=== PATIENT | female | born 1950 | race Caucasian/White ===

== ENCOUNTER → 2018-12-27 17:11 | Outpatient (CLI) | payer MEDICARE, OTHER, SELFPAY ==
[2017-01-16 11:50] VITALS: BMI 32.2
--- NOTE | 2018-12-27 | IMM_PTH ---
PATIENT: HILARY RIVAS LOC: [facility] U#:[id number] AGE/SX: 75/F ROOM: RE12/27/[address]: Dr. Masha Kearns MD : 1950 BED: DIS: SPEC #: [id number] RECD: 12/31/18 11:47 STATUS: ERLIN REQ #: [id number] UMU: 12/27/18 00:[address]: Masha Kearns DEPT: IMMUNOHISTOCHEMISTRY RECD BY: Brittany Valenzuela ENTERED: 12/31/18 11:56 SP TYPE: IMMUNO OTHR DR: Dr. Anna Davies MD Tissues: A - Thyroid gland, NOS Procedures: HBME (initial) CD56 (add) CK19 (add) GAL-3 (add) PHYSICIAN & INSTITUTION [place] [address] SPECIMEN INFORMATION: Tissue Source: A - Left thyroid nodule Clinical Info: Thyroid nodules Specimen Number: [id number] CPT code: 21823, 46466 x3 METHODOLOGY: Deparaffinized sections of prefer/formalin-fixed tissue or PAP/DQ stained slides are incubated with monoclonal/polyclonal antibodies/oligonucleotide probes. Localization is made via biotin free immunoperoxidase method. Appropriate controls are performed and reacted as expected. Results on target cell population are indicated in the following table: RESULTS: ANTIBODY / CLONE RESULT Block A HBME1 (HBME-1) negative CK19 (A53-B/A2.26) positive, focal GAL3 (9C4) negative CD56 (123C3.D5) positive These tests were developed and their performance characteristics determined by [facility]. They may not have been cleared or approved by the U.S. Food and Drug Administration. The FDA has determined that such clearance or approval is not necessary. INTERPRETATION: A. Left thyroid nodule fluid for cytology, ultrasound-guided FNA: Consistent with benign follicular nodule with focal cystic changes.. NICOLLE:sayra 12/31/18 Case has been reviewed in consultation with Dr. Gan who concurs with the above diagnosis. IDC:AM
--- NOTE | 2018-12-27 13:00 | ASPSI_PTH ---
PATIENT: HILARY RIVAS LOC: [facility] U#:[id number] AGE/SX: 75/F ROOM: RE12/27/[address]: Dr. Masha Kearns MD : 1950 BED: DIS: SPEC #: [id number] RECD: 12/27/18 16:45 STATUS: ERLIN ROCAEL #: [id number] UMU: 12/27/18 13:[address]: Masha Kearns DEPT: CYTOLOGY RECD BY: Leobardo Arredondo ENTERED: 12/30/18 08:26 SP TYPE: BENNIE GONZALES DR: Dr. Anna Davies MD Tissues: A - Thyroid gland, NOS B - Thyroid gland, NOS C - Thyroid gland, NOS D - Thyroid gland, NOS Procedures: Surgery Specimen Level IV Cytospin Fluid Cytology Other HEADER OPERATION: Ultrasound guided fine needle aspiration, left thyroid PRE-OP DIAGNOSIS: Thyroid nodules TISSUE SUBMITTED: A. Left thyroid FNA, fluid for cytology, B. Left thyroid FNA, 8 slides, C. Right thyroid FNA, fluid for cytology, D. Right thyroid FNA, 6 slides DIAGNOSIS CYTOLOGY A. Left thyroid nodule fluid for cytology, ultrasound-guided FNA (cytospin and cell block): Consistent with benign colloid nodule with cystic changes. B. Left thyroid nodule, ultrasound-guided FNA (smears): Consistent with benign colloid nodule with cystic changes. Adequate for evaluation. C. Right thyroid nodule fluid for cytology, ultrasound-guided FNA (cytospin and cell block): Rare benign follicular cells are noted. Paucicellular specimen. D. Right thyroid nodule, ultrasound-guided FNA (smears): Consistent with benign follicular nodule. Adequate for evaluation. SJ:sayra 12/31/18 COMMENT A. Immunohistochemistry ([id number]) supports the above diagnosis. Immediate cytologic evaluation to determine adequacy is not applicable. Correlation with clinical, radiologic findings and appropriate follow up are necessary. Please make reference to previous specimen ([id number]) left thyroid, ultrasound-guided FNA with diagnosis of benign, consistent with chronic lymphocytic thyroiditis. Case has been reviewed in consultation with Dr. Gan who concurs with the above diagnosis. IDC:AM CYTOLOGY STUDY Slides are reviewed. CYTOLOGY GROSS A. Received is 35 ml of dark red cloudy fluid labeled with the patient's name and and designated per the requisition as FNA left thyroid. Submitted for cytology preparation including cell block. B. Received are 8 smears labeled with the patient's name and designated per the requisition as FNA left thyroid. Submitted for staining. C. Received is 35 ml of light red cloudy fluid labeled with the patient's name and and designated per the requisition as FNA right thyroid. Submitted for cytology preparation including cell block. D. Received are 6 smears labeled with the patient's name and designated per the requisition as FNA right thyroid. Submitted for staining. /CC:cc 12/30/18 TC: CPT: 29153 x2, 59164 x2, 09194 x2
== END ==
PROVIDERS: Family Provider Internal Medicine; PCP Internal Medicine; Referring Provider Surgery; Visit Provider Surgery
DX: E04.2 Nontoxic multinodular goiter (principal)
CPT/HCPCS: 88108; 88161; 88305; 88341; 88342

== ENCOUNTER → 2020-09-08 10:52 | Outpatient (CLI) | payer MEDICARE, OTHER, SELFPAY ==
[2020-09-01 14:07] VITALS: BMI 32.2
--- NOTE | 2020-09-08 10:56 | US_ITS ---
STUDY: THYROID ULTRASOUND REASON FOR EXAM: Female, 70 years old. Abnormal thyroid function tests TECHNIQUE: Ultrasound evaluation of the thyroid was performed with real-time and static snow-scale imaging. COMPARISON: The previous study was performed at an outside facility, those films are not available for comparison FINDINGS: RIGHT LOBE: The right lobe of the thyroid gland measures 5.0 x 2.3 x 2.3 cm. There is a heterogeneous echotexture. There are 2 separate solid nodules both measuring 1 cm in greatest dimension. LEFT LOBE: The left lobe of the thyroid gland measures 6.2 x 1.7 x 2.4 cm. There is a heterogeneous echotexture. There are 3 separate solid nodules, largest measures 2.2 cm. ISTHMUS: The isthmus measures 3 mm. The regional lymph nodes are normal. US/Thyroid IMPRESSION: Enlarged heterogeneous thyroid with multiple bilateral solid nodules. If the nodules have increased in size since the previous study, further evaluation with thyroid uptake study would be recommended to assess or uptake characteristics. However, if the nodules have remained stable since the previous study, six-month follow-up would be recommended to assess stability Electronically Signed: Bertrand Truong MD at 11:59 EDT , Service support ,
== END ==
PROVIDERS: PCP Internal Medicine; Referring Provider Internal Medicine; Visit Provider Internal Medicine
DX: E04.1 Nontoxic single thyroid nodule (principal)
CPT/HCPCS: 76536

== ENCOUNTER → 2021-03-10 08:57 | Outpatient (CLI) | payer MEDICARE, OTHER, SELFPAY ==
[2021-03-10 12:27] LABS: Absolute Lymphocyte Count 2.51 X10^3/uL (0.83-4.51); Absolute Neutrophil Count 4.9 X10^3/uL (2.0-7.7); Basophil# 0.05 X10^3/uL; Basophil% 0.6 % (0-1); Eosinophil# 0.88 X10^3/uL; Eosinophils% 9.7 % (0-5); Hematocrit 43.9 % (37-47); Hemoglobin 14.6 g/dL (12.0-15.0); Lymphocyte # 2.51 X10^3/ul (0.83-4.51); Lymphocyte % 27.7 % (19-41); Mean Corp Hgb Conc 33.3 g/dL (32-36); Mean Corpuscular Hgb 28.1 pg (27.0-32.0); Mean Corpuscular Volume 84.4 fL (81-99); Mean Platelet Vol. 10.1 fl (6.2-12.0); Monocyte# 0.66 X10^3/uL; Monocyte% 7.3 % (0-10); NRBC Flagged by Analyzer 0 % (0-5); Neutrophil # 4.92 X10^3/uL (2.7-7.7); Neutrophil % 54.4 % (47-70); Platelet Count 320 K/mm3 (150-450); RBC Distribution Width CV 13.9 % (11.6-14.6); RBC Distribution Width SD 42.5 fl (35.1-43.9); White Blood Count 9.1 K/mm3 (4.4-11.0)
[2021-03-10 12:43] LABS: Vitamin D,25 Hydroxy 25.8 ng/mL
[2021-03-10 12:45] LABS: ALB/GLOB Ratio 0.9 RATIO (0.9-2.4); AST(SGOT) 21 U/L (15-37); Alanine Aminotransfer ALT/SGPT 25 U/L (13-56); Albumin, Serum 3.7 g/dL (3.2-5.0); Alkaline Phosphatase 111 U/L (45-117); Anion Gap 4 (5-15); BUN 16 mg/dL (7-18); BUN/Creat Ratio 20.2 RATIO (10-20); Chloride 108 mmol/L (98-107); Cholesterol 203 mg/dL (200); Creatinine, Serum 0.79 mg/dL (0.55-1.02); EST Glomerular Filtration Rate 76 mL/min (>60); Est Glom Filt Rate - Afr Amer 92 mL/min (>60); Globulin 4.1 g/dL (2.2-4.2); Glucose 83 mg/dL (74-106); High Density Lipoprotein 44 mg/dL; Potassium 4.1 mmol/L (3.5-5.1); Protein, Total 7.8 g/dL (6.4-8.2); Sodium Level 139 mmol/L (136-145); Thyroid Stim Hormone (TSH) 1.21 uIU/mL (0.358-3.74); Triglycerides 229 mg/dL; Very Low Density Lipoprotein 46 mg/dL (5-40)
--- NOTE | 2021-03-10 12:54 | ECHOCS_ITS ---
Version 2 Reason For Study: DYSPNEA/SOB Procedure This was a 2D Doppler, Color Flow transthoracic echocardiogram. The study was technically difficult. Exam performed in department. Left Ventricle Normal LV size. The estimated ejection fraction is 55 %. No evidence for diastolic dysfunction. No regional wall motion abnormalities noted. Right Ventricle Normal RV size. Normal systolic function. Atria Normal left atrium. Normal right atrium. No doppler evidence for ASD. Bubble contrast study negative for right to left interatrial shunt. Mitral Valve There is no mitral valve stenosis. Trivial mitral valve insufficiency. Tricuspid Valve There is no tricuspid stenosis. Trivial tricuspid valve insufficiency. Pulmonary artery systolic pressure is 35 mmHg. Aortic Valve Trisinus/trileaflet aortic valve. There is no aortic stenosis. No aortic valve insufficiency. Pulmonic Valve There is no pulmonic valvular stenosis. No pulmonic valve insufficiency. Great Vessels Normal aortic root. Pericardium/Pleural No pericardial effusion. Medication 22 gauge I.V. with prn adaptor inserted into right arm. Diluted definity 2ml given slow IV push to enhance endocardial definition. Performed a rapid injection of agitated mix of 9 cc saline and 1cc air to assess for atrial septal defect. MMode/2D Measurements & Calculations LVIDd: 3.7 cm IVSd: 0.93 cm Ao root diam: 2.9 cm LVIDs: 2.5 cm LVPWd: 0.97 cm RVDd: 3.7 cm FS: 32.7 % LAV(MOD-bp): 34.1 ml LVAd ap4: 32.3 cm2 SV(MOD-sp4): 63.3 ml LAV(MOD-bp) Indexed: 17.8 ml/m2 LVLd ap4: 8.8 cm LAV(MOD-sp2): 30.2 ml EDV(MOD-sp4): 96.1 ml LAV(MOD-sp4): 35.2 ml EDV(sp4-el): 100.3 ml LVAs ap4: 16.8 cm2 LVLs ap4: 6.8 cm ESV(MOD-sp4): 32.8 ml ESV(sp4-el): 35.3 ml EF(MOD-sp4): 65.9 % EF(sp4-el): 64.8 % SV(sp4-el): 65.0 ml LA A4 area: 14.2 cm2 LA dimension(2D): 3.5 cm RA A4 area: 14.3 cm2 Time Measurements MV dec time: 0.22 sec Doppler Measurements & Calculations MV E max sahil: 88.5 cm/sec Lat Peak E' Sahil: 9.2 cm/sec Med Peak E' Sahil: 8.3 cm/sec MV A max sahil: 120.4 cm/sec E/E' lat: 9.7 E/E' med: 10.7 MV E/A: 0.74 Ao V2 max: 158.7 cm/sec LV V1 max: 151.2 cm/sec PA V2 max: 83.3 cm/sec Ao max P.1 mmHg LV V1 max P.1 mmHg TR max sahil: 283.4 cm/sec TR max P.1 mmHg ECHO/Echo Complete W/ Contrast Interpretation Summary The estimated ejection fraction is 55 %. No evidence for diastolic dysfunction. Trivial mitral valve insufficiency. Ordering Physician: June Mitchell Referring Physician: JUNE MITCHELL Performed By: Irena Gould RDCS
--- NOTE | 2021-03-10 12:54 | US_ITS ---
STUDY: THYROID ULTRASOUND REASON FOR EXAM: Female, 71 years old. Multinodular goiter -- Ti RADS please TECHNIQUE: Ultrasound evaluation of the thyroid was performed with real-time and static snow-scale imaging. COMPARISON: 09/08/2020 FINDINGS: RIGHT LOBE: The right lobe of the thyroid gland measures 5.8 x 1.9 x 1.7 cm. There is a homogeneous echotexture. Multiple thyroid nodules, 3 measured. 1. 1.0 x 0.8 x 0.7 cm nodule (overall stable). TI-RADS points: 3. TI-RADS category: TR3. This nodule is mildly suspicious but no FNA or follow-up is necessary given the small size of this nodule. 2. 0.8 x 0.5 x 0.6 cm nodule (grossly similar). TI-RADS points: 3. TI-RADS category: TR3. This nodule is mildly suspicious but no FNA or follow-up is necessary given the small size of this nodule. 3. 1.1 x 0.7 x 0.5 cm nodule (grossly similar). TI-RADS points: 3. TI-RADS category: TR3. This nodule is mildly suspicious but no FNA or follow-up is necessary given the small size of this nodule. LEFT LOBE: The left lobe of the thyroid gland measures 7.4 x 2.2 x 2.1 cm. There is a heterogeneous echotexture. Multiple thyroid nodules, 3 measured. 1. 2.7 x 2.8 x 1.6 cm nodule (previously measured at 2.2 cm). This nodule is solid or almost completely solid, hyperechoic or isoechoic, [id number], smoothly marginated and contains no echogenic foci. TI-RADS points: 3. TI-RADS category: TR3. This nodule is mildly suspicious. Recommend FNA evaluation. 2. 1.1 x 1.3 x 0.9 cm nodule (previously measured up to 1.1 cm). This nodule is mixed cystic and solid, hypoechoic, [id number], smoothly marginated and contains punctate echogenic foci. TI-RADS points: 6. TI-RADS category: TR4. This nodule is moderately suspicious. Recommend FNA evaluation. 3. 0.9 x 1.0 x 0.7 cm nodule (previously measured up to 0.7 cm). TI-RADS points: 3. TI-RADS category: TR3. This nodule is mildly suspicious but no FNA or follow-up is necessary given the small size of this nodule. ISTHMUS: The isthmus measures 2 mm. The regional lymph nodes are normal. US/Thyroid IMPRESSION: Thyromegaly with multiple thyroid nodules, as above. Electronically Signed: David Barraza MD ([place]) at 8:39 EST , Service support ,
== END ==
PROVIDERS: PCP Internal Medicine; Visit Provider Internal Medicine
DX: E04.2 Nontoxic multinodular goiter (principal); I10 Essential (primary) hypertension; E55.9 Vitamin D deficiency, unspecified; Z86.711 Personal history of pulmonary embolism
CPT/HCPCS: 36415; 76536; 80053; 80061; 82306; 84443; 85025; 93306; Q9957; A4216; C8929; J3490

== ENCOUNTER → 2021-10-13 | Outpatient (CLI) | payer MEDICARE, OTHER, SELFPAY ==
--- NOTE | 2021-10-12 13:30 | ASPS_PTH ---
PATIENT: HILARY RIVAS [facility] U#:[id number] AGE/SX: 71/F ROOM: RE10/13/[address]: Dr. Damian Proctor MD : 1950 BED: DIS: 10/13/2021 SPEC #: [id number] RECD: 10/13/21 07:07 STATUS: ERLIN COTE #: [id number] UMU: 10/12/21 13:[address]: Damian Proctor DEPT: CYTOLOGY RECD BY: Myrtle Baldwin ENTERED: 10/13/21 09:12 SP TYPE: ASPIRATION OTHR DR: Dr. June Escobar MD Tissues: A - Thyroid gland, NOS B - Thyroid gland, NOS Procedures: Special Stain Group II Cytology Other HEADER OPERATION: Left thyroid fine needle aspiration x2 PRE-OP DIAGNOSIS: Multiple thyroid nodules TISSUE SUBMITTED: A ? Left mid thyroid nodule x8 slides, B ? Left inferior thyroid nodule x6 slides DIAGNOSIS CYTOLOGY A. Left mid thyroid nodule, fine needle aspiration (smears): Consistent with benign follicular/colloid nodule ([place] category II). Adequate for evaluation. B. Left inferior thyroid nodule, fine needle aspiration (smears): Consistent with benign follicular/colloid nodule ([place] category II). Adequate for evaluation. NICOLLE:sayra 10/13/2021 COMMENT Correlation with clinical, radiologic findings and appropriate follow up are necessary. CYTOLOGY STUDY Slides are reviewed. CYTOLOGY GROSS A - Received are eight smears labeled with the patient's name and designated per the requisition as left mid thyroid nodule. Submitted for staining. B - Received are six smears labeled with the patient's name and designated per the requisition as left inferior thyroid nodule. Submitted for staining. / sayra 10/12/2021 TC:5 CPT: 90191 x2
== END | disposition home or self-care (01) ==
LOC: LABSPEC 09:06
PROVIDERS: PCP Internal Medicine; Visit Provider Surgery
DX: E04.2 Nontoxic multinodular goiter (principal)
CPT/HCPCS: 88161; 88313

== ENCOUNTER → 2022-03-13 | Outpatient (CLI) | payer MEDICARE, OTHER, SELFPAY ==
[2022-03-13 12:22] LABS: Absolute Lymphocyte Count 2.31 X10^3/uL (0.83-4.51); Absolute Neutrophil Count 5.6 X10^3/uL (2.0-7.7); Basophil# 0.04 X10^3/uL; Basophil% 0.4 % (0-1); Eosinophil# 0.62 X10^3/uL; Eosinophils% 6.7 % (0-5); Hemoglobin 15.5 g/dL (12.0-15.0); Lymphocyte # 2.31 X10^3/ul (0.83-4.51); Lymphocyte % 24.9 % (19-41); Mean Corp Hgb Conc 33.7 g/dL (32-36); Mean Corpuscular Hgb 28.5 pg (27.0-32.0); Mean Corpuscular Volume 84.6 fL (81-99); Mean Platelet Vol. 10.3 fl (6.2-12.0); Monocyte# 0.63 X10^3/uL; Monocyte% 6.8 % (0-10); NRBC Flagged by Analyzer 0 % (0-5); Neutrophil # 5.64 X10^3/uL (2.7-7.7); Platelet Count 314 K/mm3 (150-450); RBC Distribution Width CV 13.9 % (11.6-14.6); RBC Distribution Width SD 42.5 fl (35.1-43.9); Red Blood Count 5.44 M/mm3 (4.2-5.4); White Blood Count 9.3 K/mm3 (4.4-11.0)
[2022-03-13 12:44] LABS: Vitamin D,25 Hydroxy 30.1 ng/mL
[2022-03-13 13:23] LABS: ALB/GLOB Ratio 0.9 RATIO (0.9-2.4); AST(SGOT) 33 U/L (15-37); Alanine Aminotransfer ALT/SGPT 32 U/L (13-56); Albumin, Serum 3.9 g/dL (3.2-5.0); Alkaline Phosphatase 116 U/L (45-117); Anion Gap 8 (5-15); BUN 14 mg/dL (7-18); Calcium,Total 9.5 mg/dL (8.5-10.1); Chloride 109 mmol/L (98-107); Cholesterol 210 mg/dL (200); Creatinine, Serum 0.74 mg/dL (0.55-1.02); EST Glomerular Filtration Rate 82 mL/min (>60); Est Glom Filt Rate - Afr Amer 100 mL/min (>60); Globulin 4.2 g/dL (2.2-4.2); Glucose 88 mg/dL (74-106); High Density Lipoprotein 48 mg/dL; Potassium 4.5 mmol/L (3.5-5.1); Protein, Total 8.1 g/dL (6.4-8.2); Sodium Level 139 mmol/L (136-145); Thyroid Stim Hormone (TSH) 1.52 uIU/mL (0.358-3.74); Triglycerides 235 mg/dL; Very Low Density Lipoprotein 47 mg/dL (5-40)
== END | disposition home or self-care (01) ==
LOC: BIMLAB 09:12
PROVIDERS: PCP Internal Medicine; Visit Provider Internal Medicine
DX: I10 Essential (primary) hypertension (principal); M19.90 Unspecified osteoarthritis, unspecified site; Z79.01 Long term (current) use of anticoagulants; E04.1 Nontoxic single thyroid nodule; E55.9 Vitamin D deficiency, unspecified; Z86.711 Personal history of pulmonary embolism
CPT/HCPCS: 36415; 80053; 80061; 82306; 84443; 85025

== ENCOUNTER → 2022-09-26 | Outpatient (CLI) | payer MEDICARE, OTHER, SELFPAY ==
--- NOTE | 2022-09-26 12:58 | US_ITS ---
STUDY: THYROID ULTRASOUND REASON FOR EXAM: Female, 72 years old. hx of multiple thyroid nodules TECHNIQUE: Ultrasound evaluation of the thyroid was performed with real-time and static snow-scale imaging. COMPARISON: Comparison is made with prior study #2020. FINDINGS: RIGHT LOBE: The right lobe of the thyroid gland is enlarged measures 5 cm x 2.2 cm x 1.7 cm. There is a heterogeneous echotexture. Once again, multiple thyroid nodules are present. The largest nodule is in the midpole and measures 1.5 cm x 0.9 cm x 0.8 cm. TI-RADS Category 3. There is been an increase in the size of the previously seen nodules. They measure approximately 1.2 cm x 1.1 sign by 0.7 cm. LEFT LOBE: The left lobe of the thyroid gland is enlarged and measures 5.8 cm x 2.4 cm x 1.9 cm. There is a heterogeneous echotexture. 3 nodules are seen. The largest nodule is in the lower pole and measures 3.5 cm x 3.1 cm by 1.7 cm. Ti-RADS 3 ISTHMUS: The isthmus measures 2.3 . The regional lymph nodes are normal. US/Thyroid IMPRESSION: Bilateral heterogeneous echotexture of the lobes of the thyroid with dominant nodules in both lobes. The largest nodule is in the lower pole of the left lobe and measures 3.5 cm x 3.1 cm x 1.7 cm. Biopsy is recommended. Electronically Signed: Merlin Sandoval MD at 13:57 EDT ,
== END | disposition home or self-care (01) ==
LOC: US 12:57
PROVIDERS: PCP Internal Medicine; Referring Provider Surgery; Visit Provider Surgery
DX: E04.1 Nontoxic single thyroid nodule (principal); E04.2 Nontoxic multinodular goiter
CPT/HCPCS: 76536

== ENCOUNTER → 2023-02-14 | Outpatient (CLI) | payer MEDICARE, OTHER, SELFPAY ==
[2023-02-14 13:03] LABS: Absolute Lymphocyte Count 2.05 X10^3/uL (0.83-4.51); Basophil# 0.04 X10^3/uL; Basophil% 0.4 % (0-1); Eosinophils% 7.5 % (0-5); Hematocrit 44.6 % (37-47); Hemoglobin 15.1 g/dL (12.0-15.0); Lymphocyte # 2.05 X10^3/ul (0.83-4.51); Lymphocyte % 21.9 % (19-41); Mean Corp Hgb Conc 33.9 g/dL (32-36); Mean Corpuscular Hgb 28.5 pg (27.0-32.0); Mean Corpuscular Volume 84.2 fL (81-99); Monocyte# 0.59 X10^3/uL; Monocyte% 6.3 % (0-10); NRBC Flagged by Analyzer 0 % (0-5); Neutrophil # 5.98 X10^3/uL (2.7-7.7); Neutrophil % 63.7 % (47-70); Platelet Count 311 K/mm3 (150-450); RBC Distribution Width CV 14.1 % (11.6-14.6); RBC Distribution Width SD 42.9 fl (35.1-43.9); White Blood Count 9.4 K/mm3 (4.4-11.0)
[2023-02-14 13:17] LABS: Vitamin D,25 Hydroxy 27.2 ng/mL
[2023-02-14 13:41] LABS: ALB/GLOB Ratio 0.9 RATIO (0.9-2.4); AST(SGOT) 21 U/L (15-37); Alanine Aminotransfer ALT/SGPT 34 U/L (13-56); Albumin, Serum 3.7 g/dL (3.2-5.0); Alkaline Phosphatase 119 U/L (45-117); Anion Gap 5 (5-15); BUN 12 mg/dL (7-18); BUN/Creat Ratio 17.4 RATIO (10-20); Chloride 108 mmol/L (98-107); Cholesterol 195 mg/dL (200); Creatinine, Serum 0.69 mg/dL (0.55-1.02); EST Glomerular Filtration Rate 89 mL/min (>60); Est Glom Filt Rate - Afr Amer 107 mL/min (>60); Globulin 3.9 g/dL (2.2-4.2); Glucose 104 mg/dL (74-106); High Density Lipoprotein 43 mg/dL; Potassium 4.1 mmol/L (3.5-5.1); Protein, Total 7.6 g/dL (6.4-8.2); Sodium Level 139 mmol/L (136-145); Thyroid Stim Hormone (TSH) 1.16 uIU/mL (0.358-3.74); Triglycerides 213 mg/dL; Very Low Density Lipoprotein 43 mg/dL (5-40)
== END | disposition home or self-care (01) ==
LOC: BIMLAB 09:28
PROVIDERS: PCP Internal Medicine; Referring Provider Internal Medicine; Visit Provider Internal Medicine
DX: Z13.220 Encounter for screening for lipoid disorders (principal); I10 Essential (primary) hypertension; E04.2 Nontoxic multinodular goiter; E55.9 Vitamin D deficiency, unspecified; J45.909 Unspecified asthma, uncomplicated; R06.00 Dyspnea, unspecified; Z86.711 Personal history of pulmonary embolism
CPT/HCPCS: 36415; 80053; 80061; 82306; 84443; 85025

== ENCOUNTER → 2023-03-23 | Outpatient (CLI) | payer MEDICARE, OTHER, SELFPAY ==
--- NOTE | 2023-03-23 | CYST_PTH ---
PATIENT: HILARY RIVAS LOC: [facility] U#:[id number] AGE/SX: 73/F ROOM: RE03/23/[address]: Dr. Damian Proctor MD : 1950 BED: DIS: 03/23/2023 SPEC #: [id number] RECD: 03/23/23 15:42 STATUS: ERLIN ROCAEL #: [id number] UMU: 03/23/23 00:[address]: Damian Proctor DEPT: SURGICAL PATHOLOGY RECD BY: Boirs Barnett ENTERED: 03/26/23 09:19 SP TYPE: Cyst OTHR DR: Dr. June Escobar MD Tissues: CYST Procedures: Surgery Specimen Level III HEADER OPERATION: Excision of back cyst PRE-OP DIAGNOSIS: Back cyst TISSUE SUBMITTED: Back cyst MICROSCOPIC DIAGNOSIS Cyst of back, excision: Epidermal inclusion cyst. AM:sayra 03/27/2023 COMMENT Case has been reviewed in consultation with Dr. Huff who concurs with the above diagnosis. IDC:SJ MICROSCOPIC DESCRIPTION Slides are reviewed. GROSS DESCRIPTION Received in fixative is one container labeled with the patient's name and designated back cyst. The specimen consists of a piece of bowman-white skin ellipse measuring 2.2 x 1.0 cm and up to 1.0 cm in thickness. The specimen is inked, serially sectioned and reveals a cystic lesion measuring 0.5 cm in greatest dimension. The entire specimen is submitted in two cassettes. Cassette 2 contains the tips of skin ellipse. / NICOLLE:sayra 03/26/2023 TC:5 CPT: 35081
== END | disposition home or self-care (01) ==
LOC: LABSPEC 15:47
PROVIDERS: PCP Internal Medicine; Referring Provider Surgery; Visit Provider Surgery
DX: L72.9 Follicular cyst of the skin and subcutaneous tissue, unspecified (principal)
CPT/HCPCS: 88304

== ENCOUNTER → 2023-10-02 | Outpatient (CLI) | payer MEDICARE, OTHER, SELFPAY ==
--- NOTE | 2023-10-02 11:42 | US_ITS ---
INDICATION: thyroid nodule,goiter EXAMINATION: Ultrasound US Thyroid (eg thyroid, parathyroid, parotid) TECHNIQUE: Menjivar scale and color doppler imaging was performed of the thyroid gland. COMPARISON: Prior study dated: 09/26/2022 FINDINGS: RIGHT THYROID LOBE: 5.4 x 2 x 2.2 cm, volume 12.7 mL. Previously 5 x 2.2 x 1.7 cm. Parenchyma: The gland echotexture is heterogeneous. Thyroid vascularity is normal. LEFT THYROID LOBE: 6.4 x 2.1 x 1.9 cm, volume 13.4 mL. Previously 5.8 x 2.4 x 1.9 cm. Parenchyma: The gland echotexture is heterogeneous. Thyroid vascularity is normal. ISTHMUS: 0.3 cm in maximum AP dimension. Previously 0.2 cm. Estimated total number of nodules greater than equal to 1 cm: 4. Structural Analyst nodules are described as follows: 1. Location: Right mid Size: 1.2 x 1 x 0.8 cm, Previously: 1.5 x 0.9 x 0.8 cm. Nodule characteristics: Composition: Solid or almost completely solid (2). Echogenicity: Isoechoic (1). Shape: Wider than tall (0). Margins: Ill-defined (0). Echogenic Foci: None (0). ACR TI-RADS total points: 3. Previous 3. ACR TI-RADS category: 3. Previous 3 2. Location: Left mid Size: 4 x 3 x 1.5 cm. Previously: 3.5 x 3.1 x 1.7 cm. Nodule characteristics: Composition: Solid or almost completely solid (2). Echogenicity: Isoechoic (1). Shape: Wider than tall (0). Margins: Smooth (0). Echogenic Foci: None (0). ACR TI-RADS total points: 3. Previous 3. ACR TI-RADS category: 3. Previous 3 3. Location: Left mid Size: 1.2 x 0.9 x 0.8 cm. Previously: 1.4 x 0.9 x 1.2 cm. Nodule characteristics: Composition: Mixed cystic and solid (1). Echogenicity: Hypoechoic (2). Shape: Wider than tall (0). Margins: Smooth (0). Echogenic Foci: None (0). ACR TI-RADS total points: 3. Previous 3. ACR TI-RADS category: 3. Previous 3 4. Location: Left mid Size: 1.2 x 0.6 x 0.9 cm. Previously: 1.3 x 0.6 x 1.1 cm. Nodule characteristics: Composition: Solid or almost completely solid (2). Echogenicity: Isoechoic (1). Shape: Wider than tall (0). Margins: Smooth (0). Echogenic Foci: None (0). ACR TI-RADS total points: 3. Previous 3. ACR TI-RADS category: 3. Previous 3 LYMPH NODES: No lymphadenopathy is seen in the tissue surrounding the thyroid gland. US/Thyroid IMPRESSION: Heterogeneous thyroid gland with numerous bilateral nodules. The dominant nodules are described above. Nodule #2 is appropriate for fine-needle aspiration if not performed previously. Remaining nodules require no specific follow-up based on size and appearance. ACR TI-RADS RECOMMENDATION REFERENCE: Ultrasound-guided fine-needle aspiration, follow-up ultrasound, no further follow-up. *TR 1 (0 points) and TR 2 (2 points): No FNA or follow-up. *TR 3 (3 points): FNA if more than or equal to 2.5 cm in maximum dimension. Follow-up ultrasound in 1, 3, and 5 years if 1.5 to 2.4 cm in maximum dimension. *TR 4 (4-6 points): FNA if more than or equal to 1.5 cm in maximum dimension. Follow-up ultrasound in 1, 2, 3, and 5 years if 1 to 1.4 cm in maximum dimension. *TR 5 (more than or equal to 7 points): FNA if more than or equal to 1 cm in maximum dimension. Follow-up ultrasound every year for 5 years if 0.5 to 0.9 cm in maximum dimension. *TR 3, TR 4, or TR 5 nodules that are below the size threshold for follow-up receive no follow-up. Electronically Signed: Anup Tavera MD at 4:32 EDT ,
== END | disposition home or self-care (01) ==
LOC: US 11:42
PROVIDERS: PCP Internal Medicine; Referring Provider Surgery; Visit Provider Surgery
DX: E04.2 Nontoxic multinodular goiter (principal); E04.1 Nontoxic single thyroid nodule
CPT/HCPCS: 76536

== ENCOUNTER → 2023-10-15 | Outpatient (CLI) | payer MEDICARE, OTHER, SELFPAY ==
--- NOTE | 2023-10-15 | ASPS_PTH ---
PATIENT: HILARY RIVAS LOC: [facility] U#:[id number] AGE/SX: 73/F ROOM: RE10/15/[address]: Dr. Damian Proctor MD : 1950 BED: DIS: 10/15/2023 SPEC #: [id number] RECD: 10/15/23 14:47 STATUS: ERLIN ROCAEL #: [id number] UMU: 10/15/23 00:[address]: Damian Proctor DEPT: CYTOLOGY RECD BY: Myrtle Baldwin ENTERED: 10/16/23 08:20 SP TYPE: ASPIRATION OTHR DR: Dr. June Escobar MD Tissues: Thyroid gland, NOS Procedures: Special Stain Group II Cytology Other HEADER OPERATION: Left thyroid fine needle aspiration PRE-OP DIAGNOSIS: Left thyroid nodule TISSUE SUBMITTED: Left thyroid slides x8 DIAGNOSIS CYTOLOGY Left thyroid nodule, fine needle aspiration (smears): Consistent benign follicular/colloid nodule, [place] Category II. Adequate for evaluation. See comment. SJ/ 10/16/2023 COMMENT Correlation with clinical, radiologic findings and appropriate follow up are necessary. The [place] System for thyroid diagnostic categorization was used in the evaluation of this case. CYTOLOGY STUDY Slides are reviewed. CYTOLOGY GROSS Received are 8 smears labeled with the patient's name and designated per the requisition as Left thyroid. Submitted for staining. Mr 10/16/2023 TC:5 CPT: 67036
== END | disposition home or self-care (01) ==
LOC: LABSPEC 14:50
PROVIDERS: PCP Internal Medicine; Visit Provider Surgery
DX: E04.1 Nontoxic single thyroid nodule (principal)
CPT/HCPCS: 88161; 88313

== ENCOUNTER → 2023-11-22 | Outpatient (CLI) | payer MEDICARE, OTHER, SELFPAY ==
--- NOTE | 2023-11-22 12:15 | RAD_ITS ---
STUDY: X-RAY CHEST REASON FOR EXAM: Female, 73 years old. cough, asthma ex TECHNIQUE: PA and lateral views of the chest. COMPARISON: 11/03/2012 FINDINGS: The lungs are clear and expanded. There is no demonstrated pleural abnormality. Normal size heart. Normal mediastinum and roseline. Normal visualized pulmonary arteries. Normal visualized aortic arch and descending thoracic aorta. Normal visualized thoracic spine. Normal visualized ribs, clavicles, and shoulders. There is no demonstrated abnormality of the visualized soft tissue structures of the upper abdomen. RAD/Chest PA and Lateral IMPRESSION: Normal x-ray examination of the chest. Electronically Signed: Delvis Scott MD at 9:58 EDT ,
[2023-11-22 12:42] LABS: Absolute Neutrophil Count 5.7 X10^3/uL (2.0-7.7); Basophil# 0.06 X10^3/uL; Basophil% 0.6 % (0-1); Eosinophil# 0.96 X10^3/uL; Eosinophils% 9.5 % (0-5); Hemoglobin 14.3 g/dL (12.0-15.0); Lymphocyte % 25.8 % (19-41); Mean Corpuscular Hgb 27.8 pg (27.0-32.0); Mean Corpuscular Volume 81.6 fL (81-99); Mean Platelet Vol. 9.5 fl (6.2-12.0); Monocyte# 0.77 X10^3/uL; Monocyte% 7.6 % (0-10); NRBC Flagged by Analyzer 0 % (0-5); Neutrophil # 5.65 X10^3/uL (2.7-7.7); Neutrophil % 56.1 % (47-70); Platelet Count 293 K/mm3 (150-450); RBC Distribution Width SD 41.1 fl (35.1-43.9); Red Blood Count 5.15 M/mm3 (4.2-5.4); White Blood Count 10.1 K/mm3 (4.4-11.0)
[2023-11-22 12:59] LABS: BNP,B-Type NATRIURETIC PEPTIDE 24.6 pg/mL (0-100)
[2023-11-22 13:20] LABS: ALB/GLOB Ratio 0.9 RATIO (0.9-2.4); AST(SGOT) 16 U/L (15-37); Alanine Aminotransfer ALT/SGPT 21 U/L (13-56); Albumin, Serum 3.5 g/dL (3.2-5.0); Alkaline Phosphatase 105 U/L (45-117); Anion Gap 7 (5-15); BUN 13 mg/dL (7-18); Calcium,Total 9.2 mg/dL (8.5-10.1); Chloride 107 mmol/L (98-107); Cholesterol 179 mg/dL (200); Creatinine, Serum 0.69 mg/dL (0.55-1.02); EST Glomerular Filtration Rate 89 mL/min (>60); Est Glom Filt Rate - Afr Amer 108 mL/min (>60); Globulin 3.9 g/dL (2.2-4.2); Glucose 94 mg/dL (74-106); High Density Lipoprotein 42 mg/dL; Magnesium 2.1 mg/dL (1.6-2.6); Potassium 3.7 mmol/L (3.5-5.1); Protein, Total 7.4 g/dL (6.4-8.2); Sodium Level 138 mmol/L (136-145); Thyroid Stim Hormone (TSH) 0.76 uIU/mL (0.358-3.74); Triglycerides 283 mg/dL; Very Low Density Lipoprotein 57 mg/dL (5-40)
[2023-11-22 13:23] LABS: Vitamin D,25 Hydroxy 31.4 ng/mL
== END | disposition home or self-care (01) ==
PROVIDERS: PCP Internal Medicine; Referring Provider Internal Medicine; Visit Provider Internal Medicine
DX: E04.2 Nontoxic multinodular goiter (principal); Z79.01 Long term (current) use of anticoagulants; Z86.711 Personal history of pulmonary embolism; K80.20 Calculus of gallbladder without cholecystitis without obstruction; J30.2 Other seasonal allergic rhinitis; I10 Essential (primary) hypertension; J06.9 Acute upper respiratory infection, unspecified; J45.901 Unspecified asthma with (acute) exacerbation; E78.5 Hyperlipidemia, unspecified; Z13.220 Encounter for screening for lipoid disorders; E55.9 Vitamin D deficiency, unspecified; R06.09 Other forms of dyspnea
CPT/HCPCS: 36415; 71046; 80053; 80061; 82306; 83735; 83880; 84443; 85025

== ENCOUNTER → 2024-09-22 | Outpatient (CLI) | payer MEDICARE, OTHER, SELFPAY ==
--- NOTE | 2024-09-22 12:43 | US_ITS ---
PROCEDURE: THYROID 09/22/2024 REASON FOR EXAM: THYROID NODULE TECHNIQUE: High-frequency thyroid ultrasound, including grayscale and color-flow images. REFERENCE LINKS: TI-RADS Chart: [email or web address] TI-RADS Calculator Tool with Reference Images: [email or web address]/ COMPARISON: 10/02/2023 FINDINGS: Right thyroid lobe size: 5.2x2.2x1.9 cm Left thyroid lobe size: 6.9x2.5x2.9 cm Isthmus: 0.2 cm Background parenchymal echotexture is heterogeneous. Nodules: Right thyroid lobe complex nodule measuring 1.2 x 0.9 x 0.6 cm. Right thyroid lobe hypoechoic nodule measuring 1.6 x 1.3 x 0.8 cm. Right thyroid lobe complex nodule measuring 0.9 x 0.7 x 0.5 cm. Left thyroid lobe complex nodule measuring 1.1 x 1.5 x 0.7 cm. Left thyroid lobe hypoechoic nodule measuring 0.9 x 0.9 x 0.9 cm. Left thyroid lobe heterogenous solid nodule measuring 4.3 x 2.4 x 2.7 cm. US/Thyroid IMPRESSION: Enlarged and heterogenous thyroid gland, this could be seen in thyroiditis. Slightly progressed bilateral thyroid nodules. Advise FNA for the largest lef t thyroid lobe nodule. RECOMMENDATION: Based on most suspicious nodule. Nodule size = largest diameter Only evaluate nodule if =>5 mm. Growth > 20% in 2 dimensions = worsening. Follow up to 4 nodules. Recommend biopsy for no more than 2 nodules. Reading Location: [place] [address]
== END | disposition home or self-care (01) ==
LOC: US 12:41
PROVIDERS: PCP Internal Medicine; Referring Provider Surgery; Visit Provider Surgery
DX: E04.1 Nontoxic single thyroid nodule (principal)
CPT/HCPCS: 76536

== ENCOUNTER → 2024-09-24 | Outpatient (CLI) | payer MEDICARE, OTHER, SELFPAY ==
--- OUTSIDE RECORDS SUMMARY | 2024-09-24 10:00 | XMS RPT_ITS | CCD ---
Author Organization [facility] CliniSyvt Care Team Providers Care Stores [employer] Name Role Phone Dr. Sd Mitchell Primary Care Provider Dr. Sd Mitchell Attending Provider [phone] Dr. Sd Mitchell Referring Provider [phone] Dr. Damian Proctor Attending Provider Dr. Sd Mitchell Primary Care Provider Dr. Sd Mitchell Referring Provider [phone] Jean Carlos MCKENZ[place], [place] Charanjit Arrieta Attending Provider Dr. Sd Mitchell Attending Provider [phone] Sd Mitchell Primary Care Provider Dr. Sd Mitchell Referring Provider [phone] Be MULTISKILL OPERATOR, MULTISKILL OPERATOR-Alfredo Hess Attending Provider Sd Mitchell MD Primary Care Provider [phone] SD MITCHELL Referring Unavailable SD MITCHELL Primary Care Unavailable Dr. Sd Mitchell MD Primary Care Provider [phone] Dr. Sd Mitchell MD Referring Provider Reese Gu Attending Provider Dr. Sd Mitchell MD Attending Provider Sd Mitchell Attending Unavailable Sd Mitchell Primary Care Unavailable Sd Mitchell Primary Care Unavailable Sd Mitchell Attending Unavailable Sd Mitchell Attending Unavailable Sd Mitchell Primary Care Unavailable Sd Mitchell Referring Unavailable Luz, Sd Primary Care Unavailable Reese Gu Attending Unavailable Luz, Sd Primary Care Unavailable Sd Mitchell Attending Unavailable Damian Proctor Attending Unavailable Luz, Sd Primary Care Unavailable Luz, Sd Referring Unavailable Luz, Sd Primary Care Unavailable Ulz, Sd Attending Unavailable Luz, Sd Primary Care Unavailable Riley Mandel Attending Unavailable Riley Mandel Referring Unavailable Damian Proctor Attending Unavailable Damian Proctor Referring Unavailable Luz, Sd Primary Care Unavailable Damian Proctor Attending Unavailable Luz, Sd Referring Unavailable Luz, Sd Primary Care Unavailable LuzSd Attending Unavailable Luz, Sd Primary Care Unavailable Allergies Allergy Classification Reported Allergen(s) Allergy Type Date of Onset Reaction(s) Facility (4 sources) Diclofenac Drug All[facility] 10-13-19 [facility] (5 sources) Erythromycin Drug Allergy 03-21-20 05 GI [facility] (6 sources) hydroCHLOROthiazide; Translations: [HYDROCHLOROTHIAZIDE] Drug Allergy 05-19-19 09 Intolerance [facility] (6 sources) Indapamide; Translations: [INDAPAMIDE] Drug Allergy 04-13-20 11 Other: See Comments [facility] (4 sources) Triamterene Drug Allergy 10-13-19 Other [facility] (1 source) Diclofenac Drug Allergy 04-09-20 07 GI Upset [facility] (2 sources) hydroCHLOROthiazide / Triamterene; Translations: [TRIAMTERENE-HYDROCHLO ROTHIAZID] Drug Allergy 04-07-20 08 Intolerance [facility] (1 source) Erythromycin; Translations: [ERYTHROMYCIN] Drug Allergy 03-21-20 05 [facility] Repository (1 source) OTHER; Translations: [OTHER] Propensity to adverse reactions (disorder) 04-09-20 07 [facility] Repository (1 source) Diclofenac Drug Allergy 09-04-19 [facility] Repository (1 source) Erythromycin Drug Allergy 09-04-19 [facility] Repository (1 source) hydroCHLOROthiazide Drug Allergy 09-04-19 [facility] Repository (1 source) Indapamide Drug Allergy 09-04-19 [facility] Rep[facility] (1 source) Triamterene Drug Allergy 09-04-19 [facility] Repository Medications Current Medications Medication Drug Class(es) Dates Sig (Normalized) Sig (Original) [id number] actuat albuterol 0.09 mg/actuat metered dose inhaler (4 sources) beta2-Adrenergic Agonist Start: 09-06-2022 End: 03-05-2024 Albuterol Sulfate 90 mcg/actuation HFA aerosol inhaler Active 2 NMA INHALATION EVERY 6 HOURS as needed for shortness of breath or wheezing .March 05, 2024 2:44pm With spacer please Start: 09-06-2022 take 1 puff(s) by in halation every six hours Albuterol Sulfate Active 2 PUFF INHALATION EVERY 6 HOURS 11.25September 06, 2022 12:00am With spacer please Start: 04-07-2020 take 2 puff(s) by in halation every four hours as needed albuterol HFA (PROAIR HFA) 90 mcg/actuation inhaler Indications: Mild intermittent asthma without complication Inhale 2 Puffs as instructed every 4 hours as needed. 18 g 04/07/2020 Active cetirizine hydrochloride 10 mg oral tablet (5 sources) Histamine-1 Receptor Antagonist Start: 06-05-2016 take 1 tablet by mouth once daily cetirizine (ZYRTEC) 10 mg tablet Indications: Seasonal allergic rhinitis, unspecified allergic rhinitis trigger Take 1 tablet by mouth once daily. 0 06/05/2016 Active Start: 09-13-2013 take 1 capsule by [facility] once daily Cetirizine (Zyrtec) 10 MG capsule Active 10 mg PO DAILY September 13, 2013 12:00am 30 actuat fluticasone furoate 0.1 mg/actuat dry powder inhaler (20 sources) Corticosteroid Start: 11-23-2023 End: 03-05-2024 take 100 ug by inhalation once daily Fluticasone Furoate (Arnuity Ellipta) 100 mcg/actuation blister with device Active 1 NMA INHALATION DAILY March 05, 2024 2:42pm Start: 11-16-2020 End: 09-05-2023 Fluticasone Propionate (Flov ent Hfa) 220 mcg/actuation HFA aerosol inhaler Discontinued 2 NMA INHALATION DAILY January 02, 2023 5:00pm September 05, 2023 1:58pm Start: 11-16-2020 End: 01-02-2023 take 1 puff(s) by inhalation once daily Fluticasone Propionate (Flovent Hfa) 220 mcg/actuation HFA aerosol inhaler Active 2 PUFF INHALATION DAILY January 02, 2023 5:00pm Start: 05-30-2019 take 1 puff(s) by in halation twice daily fluticasone (FLOVENT HFA) 220 mcg/actuation inhaler Inhale 1 Puff as instructed twice daily. 3 Inhaler 3 05/30/2019 Active Start: 09-13-2013 End: 03-03-2021 Fluticasone 220 Mcg (Flovent 220 Mcg) 1 INHALER inhaler Discontinued 2 NMA INHALATION DAILY September 13, 2013 12:00am March 03, 2021 1:57pm Start: 09-13-2013 End: 11-16-2020 take 50 ug by inhalation once daily Fluticasone Propionate (Flovent Diskus) 50 mcg/actuation blister with device Discontinued 2 NMA INHALATION DAILY November 16, 2020 11:55am November 16, 2020 2:42pm Start: 09-13-2013 End: 03-03-2021 take 1 puff(s) by inhalation once daily Fluticasone 220 Mcg (Flovent 220 Mcg) 1 INHALER inhaler Discontinued 2 PUFF INHALATION DAILY September 13, 2013 12:00am March 03, 2021 1:57pm irbesartan 300 mg oral tablet (18 sources) Angiotensin 2 Receptor Ida Start: 04-07-2020 End: 04-30-2024 take 1 tablet by mouth once daily Irbesartan 300 mg tablet Active 300 mg PO DAILY April 30, 2024 12:42pm metroNIDAZOLE 0.0075 mg/mg topical gel (9 sources) Nitroimidazole Antimicrobial Start: 08-07-2017 metroNIDAZOLE (METROGEL) 0.75 % Topical Gel Apply to affected area. apply to face evening 15 g 3 08/07/2017 Active Start: 01-16-2017 End: 03-03-2021 take 1 tablet by mouth every eight hours Metronidazole 500 MG tablet Discontinued 500 mg PO Q8H January 16, 2017 12:00am March 03, 2021 1:57pm Start: 09-13-2013 End: 08-30-2020 apply 60 g topically twice daily Metronidazole (Metrog el Topical) 60 GM gel Discontinued 1 NMA TOPICAL TWICE A DAY September 13, 2013 12:00am August 30, 2020 11:26am montelukast 10 mg oral tablet (14 sources) Leukotriene Receptor Antagonist Start: 09-13-2013 End: 04-30-2024 take 1 tablet by mouth once daily Montelukast 10 mg tablet Active 10 mg PO DAILY April 30, 2024 12:42pm NIFEdipine 60 mg osmotic 24 hr extended release oral tablet (14 sources) Dihydropyridine Calcium Channel Ida Start: 04-07-2020 End: 04-30-2024 take 1 tablet by mouth once daily Nifedipine 60 mg tablet extended release 24hr Active 60 mg PO DAILY April 30, 2024 12:42pm rivaroxaban 10 mg oral tablet (17 sources) Factor Xa Inhibitor Start: 09-02-2020 End: 04-30-2024 take 1 tablet by mouth once daily Rivaroxaban (Xarelto) 10 mg tablet Active 10 mg PO DAILY April 30, 2024 12:42pm spironolactone 25 mg oral tablet (14 sources) Aldosterone Antagonist Start: 09-13-2013 End: 04-30-2024 take 1 tablet by mouth once daily Spironolactone 25 mg tablet Active 25 mg PO DAILY April 30, 2024 12:42pm warfarin sodium 7.5 mg oral tablet (10 sources) Vitamin K Antagonist Start: 12-24-2019 take 1 tablet by mouth once daily warfarin (COUMADIN) 7.5 mg tablet Take 1 tablet by mouth daily as directed. 90 tablet 3 12/24/2019 Active Start: 09-13-2013 End: 09-02-2020 Warfarin (Coumadin) 5 MG tab let Discontinued 5 mg PO MOWEFRSA September 13, 2013 12:00am September 02, 2020 1:01pm Start: 09-13-2013 End: 09-02-2020 Warfarin (Coumadin) 5 MG tab let Discontinued 10 mg PO SUTUTH September 13, 2013 12:00am September 02, 2020 1:01pm Completed/Discontinued Medications Medication Drug Class(es) Dates Sig (Normalized) Sig (Original) amoxicillin 875 mg / clavulanate 125 mg oral tablet (6 sources) Penicillin-class Antibacterial Start: 01-14-2023 End: 01-21-2023 Amoxicillin-Pot Clavulanate 875-125 mg tablet Discontinued 1 {tbl} PO TWICE A DAY 14 January 14, 2023 12:00am January 20, 2023 12:00am January 21, 2023 12:04am Start: 01-14-2023 End: 01-21-2023 take 1 tablet by mouth twice daily Amoxicillin-Pot Clavulanate Discontinued 1 TABLET PO TWICE A DAY 14 January 14, 2023 12:00am January 21, 2023 12:04am Start: 12-22-2016 End: 09-01-2020 take 1 tablet by mouth every twelve hours Amoxicillin-Pot Clavulanate 875 MG tablet Discontinued 875 mg PO Q12H December 22, 2016 12:00am September 01, 2020 2:00pm azithromycin 250 mg oral tablet (1 source) Macrolide Antimicrobial Start: 05-30-2024 End: 09-03-2024 take 2-5 tablets by mouth once daily Azithromycin 250 mg tablet Discontinued 0 PO .COMPLEX 6 May 30, 2024 1:00am September 03, 2024 1:22pm take 500 mg today (day 1), then 250 mg for 4 days (days 2-5) PO Beclomethasone Dipropionate (1 source) Corticosteroid Start: 09-05-2023 End: 03-05-2024 take 40 ug by inhalation every twelve hours Beclomethasone Dipropionate (Qvar Redihaler) 40 mcg/actuation HFA aerosol breath activated Discontinued 1 NMA INHALATION Q12H 10.6 September 05, 2023 12:00am March 05, 2024 2:34pm benzonatate 100 mg oral capsule (2 sources) Non-narcotic Antitussive Start: 05-30-2024 End: 09-03-2024 take 2 capsules by mouth three times daily as needed for cough Benzonatate 100 mg capsule Discontinued 200 mg PO THREE TIMES A DAY as needed for cough September 03, 2024 1:27pm September 03, 2024 1:28pm cholecalciferol 0.025 mg oral capsule (6 sources) Vitamin D Start: 03-27-2011 End: 10-24-2023 take 1 capsule by mouth once daily Cholecalciferol (Vitamin D3) (Vitamin D3) 1,000 UNIT capsule Discontinued 1000 U PO DAILY September 13, 2013 12:00am October 24, 2023 1:07pm ciprofloxacin 500 mg oral tablet (4 sources) Quinolone Antimicrobial Start: 01-16-2017 End: 09-01-2020 take 1 tablet by mouth twice daily Ciprofloxacin Hcl 500 MG tablet Discontinued 500 mg PO TWICE A DAY January 16, 2017 12:00am September 01, 2020 2:00pm codeine phosphate 2 mg/ml / guaiFENesin 20 mg/ml oral solution (1 source) Opioid Agonist Start: 10-24-2023 End: 11-22-2023 take 1 mL by mouth every four to six hours as needed for cough Codeine-Guaifenesin 10-100 mg/5 mL liquid Discontinued 10 mL PO EVERY 4-6 HOURS as needed for cough 120 October 24, 2023 12:00am November 22, 2023 10:58am doxycycline monohydrate 100 mg oral tablet (2 sources) Tetracycline-class Drug Start: 10-24-2023 End: 03-05-2024 take 1 tablet by mouth twice daily Doxycycline Monohydrate 100 mg tablet Discontinued 100 mg PO TWICE A DAY November 22, 2023 11:16am March 05, 2024 2:34pm Take on empty stomach with a couple of crackers and small amount of water. Do not take with dairy products. Fluticasone Propionate 220 mcg/actuation HFA aerosol inhaler (2 sources) Start: 10-24-2023 End: 03-05-2024 Fluticasone Propionate 220 mcg/actuation HFA aerosol inhaler Discontinued 2 NMA INHALATION DAILY October 24, 2023 2:41pm March 05, 2024 2:34pm On Hold: Order Changed Start: 10-15-2023 End: 10-24-2023 Fluticasone Propionate 220 m cg/actuation HFA aerosol inhaler Discontinued 2 NMA INHALATION DAILY October 15, 2023 10:04am October 24, 2023 2:41pm methylPREDNISolone 4 mg oral tablet (1 source) Corticosteroid Start: 05-30-2024 End: 06-05-2024 take 1 tablet by mouth once Methylprednisolone (Medrol (Glenn)) 4 mg tablets,dose pack Discontinued 4 mg PO per package directions 21 May 30, 2024 1:00am June 04, 2024 1:00am June 05, 2024 1:11am predniSONE 10 mg oral tablet (2 sources) Start: 10-24-2023 End: 03-05-2024 Prednisone 10 mg tablet Discontinued 10 mg PO As Directed November 22, 2023 11:16am March 05, 2024 2:35pm Take 4 tabs daily for 3 days, then 2 tabs daily for 3 days, then 1 tab daily for 3 days then stop. Problems Active Problems Problem Classification Problem Date Documented Date Episodic/Chronic Asthma (13 sources) Asthma; Translations: [Unspecified asthma, uncomplicated] Onset: 11-17-2015 Chronic Biliary tract disease (4 sources) Gallstone; Translations: [Calculus of gallbladder without cholecystitis without obstruction] 08-30-2020 Episodic Diabetes mellitus without complication (1 source) Hyperglycemia, unspecified; Translations: [Hyperglycemia, unspecified] Onset: 09-03-2024 Episodic Disorders of lipid metabolism (1 source) Mixed hyperlipidemia; Translations: [Mixed hyperlipidemia] Onset: 10-19-2006 03-23-2015 Chronic Diverticulosis and diverticulitis (5 sources) Diverticulitis of intestine; Translations: [Diverticulitis of intestine, part unspecified, without perforation or abscess without bleeding] Onset: 04-03-2016 12-23-2016 Chronic Essential hypertension (8 sources) Hypertensive disorder; Translations: [Essential (primary) hypertension] Chronic Heart valve disorders (4 sources) Ejection murmur; Translations: [Cardiac murmur, unspecified] 03-03-2021 Episodic Nonmalignant breast conditions (4 sources) Breast lump; Translations: [Unspecified lump in unspecified breast] 08-30-2020 Episodic Osteoarthritis (5 sources) Arthritis; Translations: [Unspecified osteoarthritis, unspecified site] Chronic Other aftercare (5 sources) Long-term current use of anticoagulant; Translations: [USP (current) use of anticoagulants] Onset: 12-22-2012 09-01-2020 Episodic Other aftercare (1 source) USP (current) use of anticoagulants; Translations: [Long-term (current) use of anticoagulants] Episodic Other inflammatory condition of skin (1 source) Rosacea; Translations: [Rosacea, unspecified] Onset: 06-12-2007 11-01-2023 Chronic Other inflammatory condition of skin (1 source) Psoriasis; Translations: [Other psoriasis] Onset: 06-12-2007 11-01-2023 Chronic Other injuries and conditions due to external causes (4 sources) Fracture of bone; Translations: [Other injury of unspecified body region, initial encounter] 08-30-2020 Episodic Other lower respiratory disease (4 sources) Dyspnea on exertion; Translations: [Dyspnea, unspecified] 03-03-2021 Episodic Other lower respiratory disease (1 source) Cough; Translations: [Cough] 10-24-2023 Episodic Other nutritional; endocrine; and metabolic disorders (1 source) Metabolic syndrome X; Translations: [Metabolic syndrome] Onset: 07-11-2013 07-11-2013 Chronic Other skin disorders (2 sources) Actinic keratosis; Translations: [Actinic keratosis] 09-06-2022 Episodic Other skin disorders (1 source) Cyst of skin; Translations: [Follicular cyst of the skin and subcutaneous tissue, unspecified] 03-07-2023 Episodic Other upper respiratory disease (5 sources) Seasonal allergy; Translations: [Other seasonal allergic rhinitis] 08-30-2020 Chronic Other upper respiratory disease (2 sources) Other seasonal allergic rhinitis; Translations: [Allergic rhinitis, cause unspecified] Chronic Other upper respiratory infections (3 sources) Maxillary sinusitis; Translations: [Chronic maxillary sinusitis] 01-14-2023 Chronic Pulmonary heart disease (5 sources) H/O: pulmonary embolus; Translations: [Personal history of pulmonary embolism] Onset: 11-06-2012 08-30-2020 Episodic Residual codes; unclassified (4 sources) History of right oophorectomy; Translations: [Acquired absence of ovaries, unilateral] 08-30-2020 Episodic Thyroid disorders (19 sources) Thyroid nodule; Translations: [Nontoxic single thyroid nodule] Onset: 04-30-2015 Chronic Unclassified (1 source) Cough, unspecified; Translations: [Cough, unspecified] Onset: 11-22-2023 Past or Other Problems Problem Classification Problem Date Documented Da te Episodic/Chronic Allergic reactions (2 sources) Eczema; Translations: [Dermatitis, unspecified] Onset: 06-12-2007 Resolved: 10-19-2015 03-24-2010 Episodic Hemorrhoids (1 source) Hemorrhoids; Translations: [Unspecified hemorrhoids] Resolved: 10-19-2015 10-19-2015 Episodic Joint disorders and dislocations; trauma-related (1 source) Tear of meniscus of knee; Translations: [Unspecified tear of unspecified meniscus, current injury, unspecified knee, initial encounter] Onset: 04-29-2009 04-29-2009 Episodic Other bone disease and musculoskeletal deformities (1 source) Disorder of skeletal system; Translations: [Disorder of bone, unspecified] Onset: 03-30-2008 03-30-2008 Episodic Other circulatory disease (1 source) Disorder of capillaries; Translations: [Disease of capillaries, unspecified] Onset: 06-12-2007 Resolved: 10-19-2015 10-19-2015 Episodic Other inflammatory condition of skin (1 source) Seborrheic dermatitis; Translations: [Seborrheic dermatitis, unspecified] Onset: 06-12-2007 11-01-2023 Episodic Other lower respiratory disease (2 sources) Other forms of dyspnea; Translations: [Other respiratory abnormalities] Onset: 11-22-2023 Episodic Other skin disorders (1 source) Infection of sebaceous cyst; Translations: [Sebaceous cyst] Onset: 11-09-2015 11-09-2015 Episodic Other upper respiratory infections (2 sources) Acute upper respiratory infection; Translations: [Acute upper respiratory infection, unspecified] Onset: 11-22-2023 10-24-2023 Episodic Phlebitis; thrombophlebitis and thromboembolism (2 sources) Venous thrombosis; Translations: [Acute embolism and thrombosis of unspecified vein] Onset: 04-22-2009 04-22-2009 Episodic Residual codes; unclassified (3 sources) Past history of procedure; Translations: [Other specified postprocedural states] Onset: 04-23-2021 10-12-2021 Episodic Results Test Name Value Interpretation Reference Range Facility Thyroidon 09-22-2024 Thyroid [facility] [address] [place] [address] Thyroid MR#: [id number] Acct: [id number] Name: HILARY RIVAS Rep #: [id number] : 1950 F 74 From: Giuseppe regalado MD PCP: Dr. Sd Mitchell MD Status: [facility] CLI Study: Thyroid Date of Exam: 09/22/24 Exam# [id number] Ordering Dr: Riley Mandel MD PROCEDURE: THYROID 09/22/2024 REASON FOR EXAM: THYROID NODULE TECHNIQUE: High-frequency thyroid ultrasound, including grayscale and color-flow images. REFERENCE LINKS: TI-RADS Chart: [email or web address]-[email or web address]-[email or web address] TI-RADS Calculator Tool with Reference Images: [email or web address] m/[email or web address]-[email or web address] [email or web address]-[email or web address]/tir ads-[email or web address]/ COMPARISON: 10/02/2023 FINDINGS: Right thyroid lobe size: 5.2x2.2x1.9 cm Left thyroid lobe size: 6.9x2.5x2.9 cm Isthmus: 0.2 cm Background parenchymal echotexture is heterogeneous. Nodules: Right thyroid lobe complex nodule measuring 1.2 x 0.9 x 0.6 cm. Right thyroid lobe hypoechoic nodule measuring 1.6 x 1.3 x 0.8 cm. Right thyroid lobe complex nodule measuring 0.9 x 0.7 x 0.5 cm. Left thyroid lobe complex nodule measuring 1.1 x 1.5 x 0.7 cm. Left thyroid lobe hypoechoic nodule measuring 0.9 x 0.9 x 0.9 cm. Left thyroid lobe heterogenous solid nodule measuring 4.3 x 2.4 x 2.7 cm. US/Thyroid IMPRESSION: Enlarged and heterogenous thyroid gland, this could be seen in thyroiditis. Slightly progressed bilateral thyroid nodules. Advise FNA for the largest left thyroid lobe nodule. RECOMMENDATION: Based on most suspicious nodule. Nodule size = largest diameter Only evaluate nodule if =>5 mm. Growth > 20% in 2 dimensions = worsening. Follow up to 4 nodules. Recommend biopsy for no more than 2 nodules. Reading Location: [id number] CC: Dr. Sd Mitchell MD; Dr. 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 [place], [place] [address] OFFICE VISIT Date of Service: 09/03/24 MR#: [id number] Acct: [id number] Name: HILARY RIVAS Rep #: [id number] : 1950 Provider: Dr. 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 Accompanied by: Self Is patient in pain?: No Allergies diclofenac Adverse Reaction (Unknown, Verified 09/03/24 13:22) GI upset erythromycin base (Erythromycin Base) Adverse Reaction (Verified 09/03/24 13:22) Upset Stomach hydrochlorothiazide Adverse Reaction (Verified 09/03/24 13:22) Other indapamide Adverse Reaction (Verified 09/03/24 13:22) Other triamterene (From Dyazide) Adverse Reaction (Verified 09/03/24 13:22) Other Medications ???Medication ???Instructions ???Recorded ???Confirmed ???Type cetirizine 10 mg capsule (Zyrtec) 10 mg PO DAILY 09/13/13 09/03/24 History cholecalciferol (vitamin D3) 25 1,000 unit PO DAILY 10/24/2309/03 History mcg (1,000 unit) capsule (Vitamin D3) albuterol sulfate 90 mcg/actuation 2 puff inhalation Q6H PRN 09/03/24 Rx aerosol inhaler shortness of breath or wheezing #8.5 grams fluticasone furoate 100 1 inh inhalation DAILY #90 ea 02/2109/03/24 Rx mcg/actuation blister powder for inhalation (Arnuity Ellipta) irbesartan 300 mg tablet 300 mg PO DAILY #90 tabs 04/30/24 09/03/24 Rx montelukast 10 mg tablet 10 mg PO DAILY #90 tabs 04/30/24 0 09/03/24 Rx nifedipine 60 mg tablet,extended 60 mg PO DAILY #90 tabs 04/30/24 0 09/03/24 Rx release 24 hr rivaroxaban 10 mg tablet (Xarelto) 10 mg PO DAILY #90 tabs 04/30/24 09/03/24 Rx spironolactone 25 mg tablet 25 mg PO DAILY #90 tabs 04/30/24 0 09/03/24 Rx Have you fallen in the past year?: No PFSH Medical History Current use of watermaster anticoagulation Thyroid nodule Thyroid nodule, uninodular History of pulmonary embolism Hypertension Gallstones Breast lump Bone fracture Asthma Arthritis Seasonal allergies Surgical History History of cataract surgery S/P thyroid biopsy ( 09/2021) History of D C History of right oophorectomy History of cholecystectomy History of appendectomy History of tonsillectomy Family History Mother Asthma Arthritis Breast cancer Hypertension Osteoporosis Grandfather Asthma Sister Breast cancer Father Cancer brain Hypertension Social History Smoking Status: Never smoker alcohol intake: current alcohol intake frequency: a few times a month Alcohol type: wine substance use type: does not use what type of physical activity do you participate in: walking and weight training frequency: 3-4 times per week HPI HPI Chief Complaint: 6 M FU Details: HILARY RIVAS, is a 74 F who presents to the office today for 6-month follow-up. Patient has a history of asthma, longstanding. She is currently on albuterol as needed, Arnuity Ellipta, 1 inhalation daily, montelukast and Zyrtec. She has hypertension and is currently on irbesartan, spironolactone and nifedipine. She follows cardiology. She is on Xarelto as well long-term. She has thyroid nodules/multinodular goiter. We did refer her over to surgery for monitoring and her previous surgeon has since retired so she will be seeing Dr. Mandel coming up in September. She has no new specific concerns or complaints. Has been feeling pretty good, given her circumstances. She has been doing more outdoors gardening. Typically some nonspecific muscle and joint issues surrounding getting active once again. She does do yoga and Silver sneakers throughout the year at [facility]. Review of systems per chart. Physical exam. Vital signs on chart. PERRLA. Sclera are clear. TMs are unremarkable with normal light reflexes. Canals are unremarkable. Posterior pharynx is unremarkable. Good dentition. No cervical or supraclavicular lymph nodes enlarged or tender. No clear thyromegaly. No thyroid nodules readily palpable. Lungs are without wheeze, rhonchi, rales. No E/A changes are heard. Heart is regular. Not tachycardic. No clear murmur, rub, or gallop is (more content not included)... Normal [facility] Urgent Care Visit Reporton 0 05-30-2024 Urgent Care Visit Report [facility] [address], [address] [place] [address] OFFICE VISIT Date of Service: 05/30/24 MR#: [id number] Acct: [id number] Name: HILARY RIVAS Rep #: [id number] : 1950 Provider: MAGALY Velazquez Age/Sex: 74/F Location: [facility] [place] Status: Signed Intake Vital Signs 03/05/24 13:37 05/30/24 10:27 Height 5 ft 4 in Weight: 199 lb 4 oz BMI 34.2 BP 138/81 H 132/72 H Blood Pressure Location Lt brachial Rt brachial Position Sitting Sitting Respiration 16 17 Pulse 71 96 Pulse Source Monitor NIBP Temp 97.8 F 98.4 F Temp Source Temporal Oral Pulse Oximetry (%) 97 98 Oxygen Delivery Method room air room air Intake Visit Reasons: Cough Chief Complaint: cough, drainage, ST Music Department Chair Required: No Is patient in pain?: No Allergies diclofenac Adverse Reaction (Unknown, Verified 05/30/24 10:27) GI upset erythromycin base (Erythromycin Base) Adverse Reaction (Verified 05/30/24 10:27) Upset Stomach hydrochlorothiazide Adverse Reaction (Verified 05/30/24 10:27) Other indapamide Adverse Reaction (Verified 05/30/24 10:27) Other triamterene (From Dyazide) Adverse Reaction (Verified 05/30/24 10:27) Other Is last menstrual period known: No Post menopausal: Yes Patient : No Have you fallen in the past year?: No Nurse's Note: drainage, BA, ST x 10 days, cough x 3 days. pt cannot sleep due to cough. denies fever PFSH Medical History Current use of intermediate anticoagulation Thyroid nodule Thyroid nodule, uninodular History of pulmonary embolism Hypertension Gallstones Breast lump Bone fracture Asthma Arthritis Seasonal allergies Surgical History (Updated 03/05/24 @ 13:37 by Misty Lopes RN) History of cataract surgery S/P thyroid biopsy ( 09/2021) History of D C History of right oophorectomy History of cholecystectomy History of appendectomy History of tonsillectomy Family History Mother Asthma Arthritis Breast cancer Hypertension Osteoporosis Grandfather Asthma Sister Breast cancer Father Cancer brain Hypertension Social History Smoking Status: Never smoker alcohol intake: current alcohol intake frequency: a few times a month Alcohol type: wine substance use type: does not use what type of physical activity do you participate in: walking and weight training frequency: 3-4 times per week HPI HPI Chief Complaint: cough, drainage, ST Details: HILARY RIVAS, is a 74 F who presents to the office today for complaint of cough, sinus congestion, sore throat and postnasal drainage for the past 10 days. Patient denies fever, chills, sweats. No nausea, vomiting or diarrhea. No loss of taste or smell. No other associated symptoms or alleviating/aggravat ing factors. ROS Const Constitutional: No other (6 system ROS completed with pertinent findings in the HPI otherwise normal.) Exam Const General: cooperative and well developed HENVT Head: normal to inspection and atraumatic Ears: hearing grossly normal bilaterally Nose: nasal discharge clear Face and sinus: normal facial exam Mouth: oral mucosae normal Throat: abnormal tonsil bilaterally hypertrophy 1+ Resp Effort Inspection: normal respiratory effort and no audible wheezes Auscultation: Bilateral: Clear to Auscultation Cardio Palpation: normal PMI Rate: regular rate Rhythm: regular rhythm Neuro General: patient alert and CN's II-XI intact bilaterally Psych Appearance: grossly normal Mental Status: mental status grossly normal Coding Level of Care Code Off vis,est,level 3 Diagnoses Asthma exacerbation J45.901 Assessment and Plan Assessment and Plan (1) Asthma exacerbation: Status: Acute Plan: Azithromycin, benzonatate and Medrol Dosepak as prescribed today. Encouraged to get plenty of rest, drink lots of clear liquids, and use Tylenol or Ibuprofen (unless contraindicated) for fever and comfort. Patient also educated on other symptomatic management techniques. To be seen in 7-10 days if no improvement; sooner if worsening of symptoms. Patient advised of potential red flags and when appropriate to report to the ED. Patient verbalized understanding and agreement with all the above. Medications: New azithromycin take 500 mg today (day 1), then 250 mg for 4 days (days 2-5) PO 6 tabs 0RF benzonatate 200 mg (2 x 100 mg) PO TID PRN 30 caps 0RF cough methylprednisolone (Medrol (Glenn)) 4 mg PO PER PKG DIR 21 tabs 0RF 6 days Clinical Quality Measures Falls Risk Screening/Assistive Devices Have you fallen in the past year?: No 05/30/24 1222 Date _ (more content not included)... Normal [facility] SCREENING [facility] 03-18 [facility] * * *Final Report* * * DATE OF EXAM: Mar 18 2024 1:31PM [facility] [place] 0582 - [facility] SCREENING [facility] / PROCEDURE REASON: Screening Mammogram * * * * Physician Interpretation * * * * RESULT: [facility] [address] [id number] #[id number] - [facility] SCREENING [facility] HISTORY: Patient is 74 years old and is seen for screening and is asymptomatic in both breasts. Patient states no personal history of breast cancer. Patient states no personal history of other cancers. COMPARISON STUDIES: The present examination has been compared to prior imaging studies dated 12/03/2015 (mammogram), 12/11/2016 (mammogram), 12/31/2017 (mammogram) and 10/10/2019 (mammogram). MAMMOGRAM TECHNIQUE: The study was acquired using full field digital technology and interpreted from soft copy. Digital Breast Tomosynthesis (DBT) images were obtained and used to assist in the interpretation of this examination. Computer-aided detection was utilized by the radiologist in the interpretation of this examination. MAMMOGRAM FINDINGS: There are scattered areas of fibroglandular density. No suspicious masses, calcifications or other abnormalities are seen in either breast. There are no significant changes from the prior study. IMPRESSION: There are no suspicious mammographic findings in either breast. Routine screening mammogram is recommended. Annual mammogram will be due in 1 year. BI-RADS Category 1: Negative RISK: Based on the Tyrer-Cuzick (TC) risk assessment model, this patient has a 5.9% lifetime risk of developing breast cancer, meaning they are at average risk for developing breast cancer. However, this is only an estimate based on available history provided on the patient's questionnaire. We encourage all patients to talk with their providers about these results, further recommendations for managing breast health, and appropriate supplemental screening options if the patient has dense breast tissue. Interpreting Radiologist: Naman Valdez M.D. Electronically signed on: 03/19/2024 Fishing Vessel Deckhand: RIVER Arenasribe Date/Time: Mar 18 2024 1:00P Dictated by: NAMAN VALDEZ MD This examination was interpreted and the report reviewed and electronically signed by: NAMAN VALDEZ MD on Mar 19 2024 3:38PM EST [id number] CN Normal [facility] MR/BMS.IMBon 03-05-2024 MR/BMS.IMB [facility] [address] [place] [address] OFFICE VISIT Date of Service: 03/05/24 MR#: [id number] Acct: [id number] Name: HILARY RIVAS Rep #: [id number] : 1950 Provider: Dr. Sd stanton MD Age/Sex: 74/F Location: [facility] Status: Signed Intake Vital Signs 09/05/23 13:38 11/22/23 11:00 03/05/24 13:37 Height 5 ft 4 in 5 ft 4 in 5 ft 4 in Weight: 199 lb 4 oz BMI 34.2 BP 138/81 H Blood Pressure Location Lt brachial Position Sitting Respiration 16 Pulse 71 Pulse Source Monitor Temp 97.8 F Temp Source Temporal Pulse Oximetry (%) 97 Oxygen Delivery Method room air Intake Visit Reasons: 6 M FU Chief Complaint: 6 m fu Music Department Chair Required: No Accompanied by: Self Is patient in pain?: No Allergies diclofenac Adverse Reaction (Unknown, Verified 03/05/24 13:28) GI upset erythromycin base (Erythromycin Base) Adverse Reaction (Verified 03/05/24 13:28) Upset Stomach hydrochlorothiazide Adverse Reaction (Verified 03/05/24 13:28) Other indapamide Adverse Reaction (Verified 03/05/24 13:28) Other triamterene (From Dyazide) Adverse Reaction (Verified 03/05/24 13:28) Other Medications ???Medication ???Instructions ???Recorded ???Confirmed ???Type cetirizine 10 mg capsule (Zyrtec) 10 mg PO DAILY 09/13/13 03/05/24 History irbesartan 300 mg tablet 300 mg PO DAILY #90 tabs 03/07/23 03/05/24 Rx montelukast 10 mg tablet 10 mg PO DAILY #90 tabs 03/07/23 03/05/24 Rx nifedipine 60 mg tablet,extended 60 mg PO DAILY #90 tabs 03/07/23 03/05/24 Rx release 24 hr spironolactone 25 mg tablet 25 mg PO DAILY #90 tabs 03/07/23 03/05/24 Rx rivaroxaban 10 mg tablet (Xarelto) 10 mg PO DAILY #90 tabs 05/04/23 03/05/24 Rx cholecalciferol (vitamin D3) 25 1,000 unit PO DAILY 10/24/23 03/05/24 History mcg (1,000 unit) capsule (Vitamin D3) albuterol sulfate 90 mcg/actuation 2 puff inhalation Q6H PRN 03/05/24 03/05/24 Rx aerosol inhaler shortness of breath or wheezing #8.5 grams fluticasone furoate 100 1 inh inhalation DAILY #90 ea 03/05/24 03/05/24 Rx mcg/actuation blister powder for inhalation (Arnuity Ellipta) Have you fallen in the past year?: No PFSH Medical History Current use of intermediate anticoagulation Thyroid nodule Thyroid nodule, uninodular History of pulmonary embolism Hypertension Gallstones Breast lump Bone fracture Asthma Arthritis Seasonal allergies Surgical History (Updated 03/05/24 @ 13:37 by Misty Lopes RN) History of cataract surgery S/P thyroid biopsy ( 09/2021) History of D C History of right oophorectomy History of cholecystectomy History of appendectomy History of tonsillectomy Family History Mother Asthma Arthritis Breast cancer Hypertension Osteoporosis Grandfather Asthma Sister Breast cancer Father Cancer brain Hypertension Social History Smoking Status: Never smoker alcohol intake: current alcohol intake frequency: a few times a month Alcohol type: wine substance use type: does not use what type of physical activity do you participate in: walking and weight training frequency: 3-4 times per week HPI HPI Chief Complaint: 6 m fu Details: HILARY RIVAS, is a 74 F who presents to the office today for 6-month follow-up. 74-year-old female who has a history of asthma, and generally speaking things have settled down there to where she is still on the Arnuity Ellipta. She does need a refill for this. She does use albuterol as needed and also needs a refill for that. She is on long-term spironolactone, Xarelto, nifedipine, irbesartan and Zyrtec. Has a history of asthma, hypertension, arthritis. She is tolerating her medical regimen at this point in time. Generally speaking is feeling well and does not have any new specific concerning issues. She again has chronic asthma, drainage that she feels is probably seasonal allergies. She does use Zyrtec routinely. Review of systems per chart. She is not having chest pain, chest tightness currently. No fever or chills. No nausea or vomiting. She has not had a mammogram in several years, and the last one had been at [facility] where she had prior primary care. Her previous OB is gone at this point. I did submit order, print it for her to take to [facility] for mammogram. She is agreeable at this point. She relatively recently, had bilateral cataracts removed, and is done actually quite well she feels. She does wear readers but is very overall happy with her status that way. Physical exam. Vital signs on chart. PERRLA. Sclera are clear. TMs are unremarkable with normal light reflexes. Canals are unr (more content not included)... Normal [facility] BNP,B-Type NATRIURETIC PEPTI Christa 11-22-2023 Natriuretic peptide B (Bld) [Mass/Vol] 24.6 pg/mL Normal 0-100 [facility] Comment on above: Performed By: #### L 100.0100, L506.1000, L501.9520, L503.6620, L500.4050, L500.4100, L501.5200 #### [facility] [address] [place], [address] CBC W/Diff, Automatedon 08- Absolute Lymph 2.60 X10 3/uL Normal 0.83-4.51 [facility] Comment on above: Performed By: #### L 100.0100, L506.1000, L501.9520, L503.6620, L500.4050, L500.4100, L501.5200 #### [facility] [address] [place], [address] Absolute Neut 5.7 X10 3/uL Normal 2.0-7.7 [facility] Comment on above: Performed By: #### L 100.0100, L506.1000, L501.9520, L503.6620, L500.4050, L500.4100, L501.5200 #### [facility] [address] [place], [address] Basophils/100 WBC (Bld) 0.6 % Normal 0-[address] [facility] Comment on above: Performed By: #### L 100.0100, L506.1000, L501.9520, L503.6620, L500.4050, L500.4100, L501.5200 #### [facility] [address] [place], [address] Eosinophils/100 WBC (Bld) 9.5 % High 0-5 [facility] Comment on above: Performed By: #### L 100.0100, L506.1000, L501.9520, L503.6620, L500.4050, L500.4100, L501.5200 #### [facility] [address] [place], [address] Erythrocyte distribution width (RBC) [Ratio] 14.0 % Normal 11.6-14.6 [facility] Comment on above: Performed By: #### L 100.0100, L506.1000, L501.9520, L503.6620, L500.4050, L500.4100, L501.5200 #### [facility] [address] [place], [address] Hematocrit (Bld) [Volume fraction] 42.0 % Normal 37-47 [facility] Comment on above: Performed By: #### L 100.0100, L506.1000, L501.9520, L503.6620, L500.4050, L500.4100, L501.5200 #### [facility] [address] [place], [address] Hemoglobin (Bld) [Mass/Vol] 14.3 g/dL Normal 12.0-15.0 [facility] Comment on above: Performed By: #### L 100.0100, L506.1000, L501.9520, L503.6620, L500.4050, L500.4100, L501.5200 #### [facility] [address] [place], [address] IG% 0.400 Normal 0.0-0.9 [facility] Comment on above: Result Comment: IG% - Immature Granulocytes (promyelocytes, myelocytes and metamyelocytes) > 1% indicates that a LEFT SHIFT is Present. Performed By: #### L 100.0100, L506.1000, L501.9520, L503.6620, L500.4050, L500.4100, L501.5200 #### [facility] [address] [place], [address] Lymphocytes/100 WBC (Bld) 25.8 % Normal 19-41 [facility] Comment on above: Performed By: #### L 100.0100, L506.1000, L501.9520, L503.6620, L500.4050, L500.4100, L501.5200 #### [facility] [address] [place], [address] MCH (RBC) [Entitic mass] 27.8 pg Normal 27.0-32.0 [facility] Comment on above: Performed By: #### L 100.0100, L506.1000, L501.9520, L503.6620, L500.4050, L500.4100, L501.5200 #### [facility] [address] [place], [address] MCHC (RBC) [Mass/Vol] 34.0 g/dL Normal 32-36 [facility] Comment on above: Performed By: #### L 100.0100, L506.1000, L501.9520, L503.6620, L500.4050, L500.4100, L501.5200 #### [facility] [address] [place], [address] MCV (RBC) [Entitic vol] 81.6 fL Normal 81-[address] [facility] Comment on above: Performed By: #### L 100.0100, L506.1000, L501.9520, L503.6620, L500.4050, L500.4100, L501.5200 #### [facility] [address] [place], [address] Monocytes/100 WBC (Bld) 7.6 % Normal 0-[address] [facility] Comment on above: Performed By: #### L 100.0100, L506.1000, L501.9520, L503.6620, L500.4050, L500.4100, L501.5200 #### [facility] [address] [place], [address] Neutrophils/100 WBC (Bld) 56.1 % Normal 47-70 [facility] Comment on above: Performed By: #### L 100.0100, L506.1000, L501.9520, L503.6620, L500.4050, L500.4100, L501.5200 #### [facility] [address] [place], [address] Nucleated RBC (Bld) [#/Vol] 0 10*3/uL Normal 0-5 [facility] Comment on above: Performed By: #### L 100.0100, L506.1000, L501.9520, L503.6620, L500.4050, L500.4100, L501.5200 #### [facility] [address] [place], [address] Platelet mean volume (Bld) [Entitic vol] 9.5 fL Normal 6.2-12.0 [facility] Comment on above: Performed By: #### L 100.0100, L506.1000, L501.9520, L503.6620, L500.4050, L500.4100, L501.5200 #### [facility] [address] [place], [address] Platelets (Bld) [#/Vol] 293 10*3/uL Normal 150-450 [facility] Comment on above: Performed By: #### L 100.0100, L506.1000, L501.9520, L503.6620, L500.4050, L500.4100, L501.5200 #### [facility] [address] [place], [address] RBC (Bld) [#/Vol] 5.15 10*6/uL Normal 4.2-5.4 [facility] Comment on above: Performed By: #### L 100.0100, L506.1000, L501.9520, L503.6620, L500.4050, L500.4100, L501.5200 #### [facility] [address] [place], [address] RDW SD 41.1 fl Normal 35.1-43.9 [facility] Comment on above: Performed By: #### L 100.0100, L506.1000, L501.9520, L503.6620, L500.4050, L500.4100, L501.5200 #### [facility] [address] [place], [address] WBC (Bld) [#/Vol] 10.1 10*3/uL Normal 4.4-11.0 [facility] Comment on above: Performed By: #### L 100.0100, L506.1000, L501.9520, L503.6620, L500.4050, L500.4100, L501.5200 #### [facility] [address] [place], [address] Chest PA and Lateralon 11-21 Chest PA and Lateral [facility] [address] [place] [address] Chest PA and Lateral MR#: [id number] Acct: [id number] Name: HILARY RIVAS Rep #: [id number] : 1950 F 73 From: Delvis Scott MD PCP: Dr. Sd Mitchell MD Status: REG CLI Study: Chest PA and Lateral Date of Exam: 11/22/23 Exam# [id number] Ordering Dr: Sd Mitchell MD [id number] STUDY: X-RAY CHEST REASON FOR EXAM: Female, 73 years old. cough, asthma ex TECHNIQUE: PA and lateral views of the chest. COMPARISON: 11/03/2012 FINDINGS: The lungs are clear and expanded. There is no demonstrated pleural abnormality. Normal size heart. Normal mediastinum and roseline. Normal visualized pulmonary arteries. Normal visualized aortic arch and descending thoracic aorta. Normal visualized thoracic spine. Normal visualized ribs, clavicles, and shoulders. There is no demonstrated abnormality of the visualized soft tissue structures of the upper abdomen. RAD/Chest PA and Lateral IMPRESSION: Normal x-ray examination of the chest. Electronically Signed: Delvis Scott MD at 9:58 EDT , CC: Dr. Sd Mitchell MD Fishing Vessel Deckhand: Signed Normal [facility] Comprehensive Metabolic Prof ilon 11-22-2023 Albumin [Mass/Vol] 3.5 g/dL Normal 3.2-5.0 [facility] Comment on above: Performed By: #### L 100.0100, L506.1000, L501.9520, L503.6620, L500.4050, L500.4100, L501.5200 #### [facility] [address] [place], [address] Albumin/Globulin [Mass ratio] 0.9 {ratio} Normal 0.9-2.4 [facility] Comment on above: Performed By: #### L 100.0100, L506.1000, L501.9520, L503.6620, L500.4050, L500.4100, L501.5200 #### [facility] [address] [place], [address] ALK P 105 U/L Normal 45-117 [facility] Comment on above: Performed By: #### L 100.0100, L506.1000, L501.9520, L503.6620, L500.4050, L500.4100, L501.5200 #### [facility] [address] [place], [address] ALT [Catalytic activity/Vol] 21 U/L Normal 13-56 [facility] Comment on above: Performed By: #### L 100.0100, L506.1000, L501.9520, L503.6620, L500.4050, L500.4100, L501.5200 #### [facility] [address] [place], [address] AST [Catalytic activity/Vol] 16 U/L Normal 15-37 [facility] Comment on above: Performed By: #### L 100.0100, L506.1000, L501.9520, L503.6620, L500.4050, L500.4100, L501.5200 #### [facility] [address] [place], [address] Bilirubin [Mass/Vol] 1.10 mg/dL High 0.20-1.00 [facility] Comment on above: Result Comment: For patients on eltrombopag therapy, use of Dimension Rudyard TBIL is not recommended. Performed By: #### L 100.0100, L506.1000, L501.9520, L503.6620, L500.4050, L500.4100, L501.5200 #### [facility] [address] [place], [address] BUN/CRE 19.0 RATIO Normal 10-20 [facility] Comment on above: Performed By: #### L 100.0100, L506.1000, L501.9520, L503.6620, L500.4050, L500.4100, L501.5200 #### [facility] [address] [place], [address] CA,Total 9.2 mg/dL Normal 8.5-10.1 [facility] Comment on above: Performed By: #### L 100.0100, L506.1000, L501.9520, L503.6620, L500.4050, L500.4100, L501.5200 #### [facility] [address] [place], [address] Chloride [Moles/Vol] 107 mmol/L Normal 98-107 [facility] Comment on above: Performed By: #### L 100.0100, L506.1000, L501.9520, L503.6620, L500.4050, L500.4100, L501.5200 #### [facility] [address] [place], [address] CO2 [Moles/Vol] 24.0 mmol/L Normal 21.0-32.0 [facility] Comment on above: Performed By: #### L 100.0100, L506.1000, L501.9520, L503.6620, L500.4050, L500.4100, L501.5200 #### [facility] [address] [place], [address] Creatinine [Mass/Vol] 0.69 mg/dL Normal 0.55-1.02 [facility] Comment on above: Result Comment: The validity of the calculated GFR GFRAA in patients over 70 years has not been determined. Clinical correlation is essential. Performed By: #### L 100.0100, L506.1000, L501.9520, L503.6620, L500.4050, L500.4100, L501.5200 #### [facility] [address] [place], [address] EST GFR - AA 108 mL/min Normal >60 [facility] Comment on above: Result Comment: Afri can [place]i GFR Calc Performed By: #### L 100.0100, L506.1000, L501.9520, L503.6620, L500.4050, L500.4100, L501.5200 #### [facility] [address] [place], [address] GAP 7 Normal 5-15 [facility] Comment on above: Performed By: #### L 100.0100, L506.1000, L501.9520, L503.6620, L500.4050, L500.4100, L501.5200 #### [facility] [address] [place], [address] GFR/1.73 sq M.predicted among non-blacks MDRD (S/P/Bld) [Vol rate/Area] 89 mL/min/{1.73_m2} Normal >60 [facility] Comment on above: Result Comment: Non- GFR Calc Performed By: #### L 100.0100, L506.1000, L501.9520, L503.6620, L500.4050, L500.4100, L501.5200 #### [facility] [address] [place], [address] Globulin (S) [Mass/Vol] 3.9 g/dL Normal 2.2-4.[address] [facility] Comment on above: Performed By: #### L 100.0100, L506.1000, L501.9520, L503.6620, L500.4050, L500.4100, L501.5200 #### [facility] [address] [place], [address] Glucose [Mass/Vol] 94 mg/dL Normal 74-106 [facility] Comment on above: Performed By: #### L 100.0100, L506.1000, L501.9520, L503.6620, L500.4050, L500.4100, L501.5200 #### [facility] [address] [place], [address] Potassium [Moles/Vol] 3.7 mmol/L Normal 3.5-5.1 [facility] Comment on above: Performed By: #### L 100.0100, L506.1000, L501.9520, L503.6620, L500.4050, L500.4100, L501.5200 #### [facility] [address] [place], [address] Sodium [Moles/Vol] 138 mmol/L Normal 136-145 [facility] Comment on above: Performed By: #### L 100.0100, L506.1000, L501.9520, L503.6620, L500.4050, L500.4100, L501.5200 #### [facility] [address] [place], [address] T PROT 7.4 g/dL Normal 6.4-8.2 [facility] Comment on above: Performed By: #### L 100.0100, L506.1000, L501.9520, L503.6620, L500.4050, L500.4100, L501.5200 #### [facility] [address] [place], [address] Urea nitrogen [Mass/Vol] 13 mg/dL Normal 7-18 [facility] Comment on above: Performed By: #### L 100.0100, L506.1000, L501.9520, L503.6620, L500.4050, L500.4100, L501.5200 #### [facility] [address] [place], [address] Lipid Profileon 11-22-2023 Cholesterol [Mass/Vol] 179 mg/dL Normal 200 [facility] Comment on above: Result Comment: <200 mg/dL Desirable 200-240 mg/dL Borderline >240 mg/dL High Risk Performed By: #### L 100.0100, L506.1000, L501.9520, L503.6620, L500.4050, L500.4100, L501.5200 #### [facility] [address] [place], [address] Cholesterol in HDL [Mass/Vol] 42 mg/dL Normal [facility] Comment on above: Result Comment: The drugs N-Acetylcysteine and Metamizole may falsely depress this assay. Reference Range HDL <40 mg/dL Low HDL Cholesterol HDL >or= 60 mg/dL High HDL Cholesterol Performed By: #### L 100.0100, L506.1000, L501.9520, L503.6620, L500.4050, L500.4100, L501.5200 #### [facility] [address] [place], [address] Cholesterol in LDL [Mass/Vol] 80 mg/dL Normal 0-130 [facility] Comment on above: Performed By: #### L 100.0100, L506.1000, L501.9520, L503.6620, L500.4050, L500.4100, L501.5200 #### [facility] [address] [place], [address] Cholesterol in VLDL [Mass/Vol] 57 mg/dL High 5-40 [facility] Comment on above: Performed By: #### L 100.0100, L506.1000, L501.9520, L503.6620, L500.4050, L500.4100, L501.5200 #### [facility] [address] [place], [address] Triglyceride [Mass/Vol] 283 mg/dL High [facility] Comment on above: Result Comment: The drugs N-Acetylcysteine and Metamizole may falsely depress this assay. Serum Triglycerides Reference Interval Normal <150 mg/dL Borderline high 150 - 199 mg/dL High 200 - 499 mg/dL Very High > or = 500 mg/dL Performed By: #### L 100.0100, L506.1000, L501.9520, L503.6620, L500.4050, L500.4100, L501.5200 #### [facility] [address] [place], [address] MR/BMS.Bon 11-22-2023 /[facility] [address] [place] [address] OFFICE VISIT Date of Service: 11/22/23 MR#: [id number] Acct: [id number] Name: HILARY RIVAS Rep #: [id number] : 1950 Provider: Dr. Sd stanton MD Age/Sex: 73/F Location: [facility] Status: Signed Intake Vital Signs 11/01/23 13:07 11/22/23 11:00 Height 5 ft 4 in 5 ft 4 in Weight: 197 lb 4 oz BMI 33.8 BP 120/68 118/79 Blood Pressure Location Lt brachial Lt brachial Position Sitting Sitting Respiration 16 Pulse 75 79 Pulse Source Monitor Monitor Temp 98.2 F 98.2 F Temp Source Temporal Temporal Pulse Oximetry (%) 95 95 Oxygen Delivery Method room air room air Intake Visit Reasons: Cough Chief Complaint: cough Music Department Chair Required: No Accompanied by: Self Is patient in pain?: No Allergies diclofenac Adverse Reaction (Unknown, Verified 11/22/23 10:54) GI upset erythromycin base (Erythromycin Base) Adverse Reaction (Verified 11/22/23 10:54) Upset Stomach hydrochlorothiazide Adverse Reaction (Verified 11/22/23 10:54) Other indapamide Adverse Reaction (Verified 11/22/23 10:54) Other triamterene (From Dyazide) Adverse Reaction (Verified 11/22/23 10:54) Other Medications ???Medication ???Instructions ???Recorded ???Confirmed ???Type cetirizine 10 mg capsule (Zyrtec) 10 mg PO DAILY 09/13/13 11/22/23 History albuterol sulfate 90 mcg/actuation 2 puff inhalation Q6H PRN 09/06/22 11/22/23 Rx aerosol inhaler shortness of breath or wheezing #8.5 grams irbesartan 300 mg tablet 300 mg PO DAILY #90 tabs 03/07/23 11/22/23 Rx montelukast 10 mg tablet 10 mg PO DAILY #90 tabs 03/07/23 11/22/23 Rx nifedipine 60 mg tablet,extended 60 mg PO DAILY #90 tabs 03/07/23 11/22/23 Rx release 24 hr spironolactone 25 mg tablet 25 mg PO DAILY #90 tabs 03/07/23 11/22/23 Rx rivaroxaban 10 mg tablet (Xarelto) 10 mg PO DAILY #90 tabs 05/04/23 11/22/23 Rx beclomethasone dipropionate 40 1 inh inhalation Q12H #10.6 grams 09/05/23 11/22/23 Rx mcg/actuation HFA breath activated aerosol (Qvar RediHaler) cholecalciferol (vitamin D3) 25 1,000 unit PO DAILY 10/24/23 11/22/23 History mcg (1,000 unit) capsule (Vitamin D3) fluticasone propionate 220 2 puff inhalation DAILY #12 grams 10/24/23 11/22/23 Rx mcg/actuation HFA aerosol inhaler doxycycline monohydrate 100 mg 100 mg PO BID #14 tabs 11/22/23 11/22/23 Rx tablet prednisone 10 mg tablet 10 mg PO DIRECTED #21 tabs 11/22/23 11/22/23 Rx Have you fallen in the past year?: No PFSH Medical History Current use of intermediate anticoagulation Thyroid nodule Thyroid nodule, uninodular History of pulmonary embolism Hypertension Gallstones Breast lump Bone fracture Asthma Arthritis Seasonal allergies Surgical History S/P thyroid biopsy ( 09/2021) History of D C History of right oophorectomy History of cholecystectomy History of appendectomy History of tonsillectomy Family History Mother Asthma Arthritis Breast cancer Hypertension Osteoporosis Grandfather Asthma Sister Breast cancer Father Cancer brain Hypertension Social History Smoking Status: Never smoker alcohol intake: current alcohol intake frequency: a few times a month Alcohol type: wine substance use type: does not use what type of physical activity do you participate in: walking and weight training frequency: 3-4 times per week HPI HPI Chief Complaint: cough Details: HILARY RIVAS, is a 73 F who presents to the office today for follow-up. 73-year-old female. Just a few weeks ago, she had exacerbation of asthma. We have treated her with doxycycline, prednisone. Within a day or 2 of prednisone, she was feeling much better, wheeze had largely resolved. This all began because her insurance company after many years stopped covering fluticasone. She was very stable on fluticasone. They switched her to Qvar. When she started on Qvar she started having worsening asthma symptoms, wheezing that progressed. Ultimately that was going on to the point of stopping it and we switched to prednisone. She had tried then Qvar after that much the same response. She now has extensive wheezing, coughing. No high fevers or shaking chills. No nausea or vomiting. Appetites been good. Otherwise feels well. Strong family history of asthma and seasonal allergies and herself, children. Others in the family as well. She uses albuterol as needed. Again currently on Qvar. Takes Zyrtec, irbesartan, montelukast, nifedipine and Xarelto as well as spironolactone. Notes outdoors right now been very difficult due to the high humi (more content not included)... Normal [facility] Magnesiumon 11-22-2023 Magnesium [Mass/Vol] 2.1 mg/dL Normal 1.6-2.6 [facility] Comment on above: Performed By: #### L 100.0100, L506.1000, L501.9520, L503.6620, L500.4050, L500.4100, L501.5200 #### [facility] [address] [place], [place], [address] Thyroid Stim Hormone (TSH)on 11-22-2023 TSH 0.76 uIU/mL Normal 0.358-3.74 [facility] Comment on above: Performed By: #### L 100.0100, L506.1000, L501.9520, L503.6620, L500.4050, L500.4100, L501.5200 ####[facility] [id number] [place], [address] Vitamin D,25 Hydroxyon 11-21 Vitamin D 25-OH 31.4 ng/mL Normal [facility] Comment on above: Result Comment: Zuleika min D 25(OH) Status Range Deficiency <20 ng/mL (50nmol/L) Insufficiency 20 - 30 ng/mL (50 - 75 nmol/L) Sufficiency 30 - 100 ng/mL (75 - 250 nmol/L) Toxicity >100 ng/mL (>250 nmol/L) Performed By: #### L 100.0100, L506.1000, L501.9520, L503.6620, L500.4050, L500.4100, L501.5200 ####[facility] [id number] [place], [place], [address] MR/Ac 11-01-2023 MR/BMS.[facility] [address] [place], [place] [address] OFFICE VISIT Date of Service: 11/01/23 MR#: [id number] Acct: [id number] Name: HILARY RIVAS Rep #: [id number] : 1950 Provider: Dr. Sd stanton MD Age/Sex: 73/F Location: [facility] Status: Signed Intake Vital Signs 10/24/23 08:12 11/01/23 13:07 Height 5 ft 4 in 5 ft 4 in Body Surface Area 195.6 BP 120/81 H 120/68 Blood Pressure Location Lt radial Lt brachial Position Sitting Sitting Pulse 82 75 Pulse Source Monitor Temp 98.0 F 98.2 F Temp Source Temporal Temporal Pulse Oximetry (%) 95 95 Oxygen Delivery Method room air room air Intake Visit Reasons: 1 W FU Music Department Chair Required: No Accompanied by: Self Is patient in pain?: No Allergies diclofenac Adverse Reaction (Unknown, Verified 11/01/23 13:08) GI upset erythromycin base (Erythromycin Base) Adverse Reaction (Verified 11/01/23 13:08) Upset Stomach hydrochlorothiazide Adverse Reaction (Verified 11/01/23 13:08) Other indapamide Adverse Reaction (Verified 11/01/23 13:08) Other triamterene (From Dyazide) Adverse Reaction (Verified 11/01/23 13:08) Other Medications ???Medication ???Instructions ???Recorded ???Confirmed ???Type cetirizine 10 mg capsule (Zyrtec) 10 mg PO DAILY 09/13/13 11/01/23 History albuterol sulfate 90 mcg/actuation 2 puff inhalation Q6H PRN 09/06/22 11/01/23 Rx aerosol inhaler shortness of breath or wheezing #8.5 grams irbesartan 300 mg tablet 300 mg PO DAILY #90 tabs 03/07/23 11/01/23 Rx montelukast 10 mg tablet 10 mg PO DAILY #90 tabs 03/07/23 11/01/23 Rx nifedipine 60 mg tablet,extended 60 mg PO DAILY #90 tabs 03/07/23 11/01/23 Rx release 24 hr spironolactone 25 mg tablet 25 mg PO DAILY #90 tabs 03/07/23 11/01/23 Rx rivaroxaban 10 mg tablet (Xarelto) 10 mg PO DAILY #90 tabs 05/04/23 11/01/23 Rx beclomethasone dipropionate 40 1 inh inhalation Q12H #10.6 grams 09/05/23 11/01/23 Rx mcg/actuation HFA breath activated aerosol (Qvar RediHaler) cholecalciferol (vitamin D3) 25 1,000 unit PO DAILY 10/24/23 11/01/23 History mcg (1,000 unit) capsule (Vitamin D3) codeine 10 mg-guaifenesin 100 mg/5 10 ml PO Q4-6H PRN cough #120 mL 10/24/23 11/01/23 Rx mL oral liquid doxycycline monohydrate 100 mg 100 mg PO BID #20 tabs 10/24/23 11/01/23 Rx tablet fluticasone propionate 220 2 puff inhalation DAILY #12 grams 10/24/23 11/01/23 Rx mcg/actuation HFA aerosol inhaler prednisone 10 mg tablet 10 mg PO DIRECTED #21 tabs 10/24/23 11/01/23 Rx Have you fallen in the past year?: No PFSH Medical History Current use of watermaster anticoagulation Thyroid nodule Thyroid nodule, uninodular History of pulmonary embolism Hypertension Gallstones Breast lump Bone fracture Asthma Arthritis Seasonal allergies Surgical History S/P thyroid biopsy ( 09/2021) History of D C History of right oophorectomy History of cholecystectomy History of appendectomy History of tonsillectomy Family History Mother Asthma Arthritis Breast cancer Hypertension Osteoporosis Grandfather Asthma Sister Breast cancer Father Cancer brain Hypertension Social History Smoking Status: Never smoker alcohol intake: current alcohol intake frequency: a few times a month Alcohol type: wine substance use type: does not use what type of physical activity do you participate in: walking and weight training frequency: 3-4 times per week HPI HPI Details: HILARY RIVAS, is a 73 F who presents to the office today for short-term follow-up. 73-year-old female has a history of asthma. She presented last week, with cough, congestion, wheezing, tightness in the chest. She was felt to have asthma exacerbation, presumably to acute upper respiratory infection. She has been taking doxycycline and tolerating that without difficulties. She has 2 more days of that, and 1 more day on the steroid taper. She has made marked improvement at this point in time. She states about 3 days into the medication, she had significant improvement. Overall feeling well. No shortness of breath, no chest tightness, minimal cough, slight drainage still down the back of the throat but that is quite minimal at this point she states. Review of systems per chart. Physical exam. Vital signs on chart. Sclera are clear. Neck is supple. No cervical supraclavicular lymph nodes enlarged or tender. Her lungs are currently without wheeze rhonchi or rales. This is a marked improvement from previous. No E/a changes. Excellent air exchange. The heart is regular. Not tachycardic. No gallops or rubs are re (more content not included)... Normal [facility] MR/BMS.IMBon 10-24-2023 MR/BMS.[facility] [address] [place] [address] OFFICE VISIT Date of Service: 10/24/23 MR#: [id number] Acct: [id number] Name: HILARY RIVAS Rep #: [id number] : 1950 Provider: Dr. Sd stanton MD Age/Sex: 73/F Location: [facility] Status: Signed Intake Vital Signs 10/15/23 13:45 10/24/23 08:12 Height 5 ft 4 in 5 ft 4 in Weight: 195 lb BMI 33.5 Body Surface Area 195.6 BP 142/79 H 120/81 H Blood Pressure Location Rt brachial Lt radial Position Sitting Sitting Respiration 18 Pulse 89 82 Pulse Source Monitor Temp 97.3 F L 98.0 F Temp Source Temporal Temporal Pulse Oximetry (%) 99 95 Oxygen Delivery Method room air room air Intake Visit Reasons: Cough Accompanied by: Self Is patient in pain?: Yes Pain scale (1-10): 5 Allergies diclofenac Adverse Reaction (Unknown, Verified 10/24/23 13:06) GI upset erythromycin base (Erythromycin Base) Adverse Reaction (Verified 10/24/23 13:06) Upset Stomach hydrochlorothiazide Adverse Reaction (Verified 10/24/23 13:06) Other indapamide Adverse Reaction (Verified 10/24/23 13:06) Other triamterene (From Dyazide) Adverse Reaction (Verified 10/24/23 13:06) Other Medications ???Medication ???Instructions ???Recorded ???Confirmed ???Type cetirizine 10 mg capsule (Zyrtec) 10 mg PO DAILY 09/13/13 10/24/23 History albuterol sulfate 90 mcg/actuation 2 puff inhalation Q6H PRN 09/06/22 10/24/23 Rx aerosol inhaler shortness of breath or wheezing #8.5 grams irbesartan 300 mg tablet 300 mg PO DAILY #90 tabs 03/07/23 10/24/23 Rx montelukast 10 mg tablet 10 mg PO DAILY #90 tabs 03/07/23 10/24/23 Rx nifedipine 60 mg tablet,extended 60 mg PO DAILY #90 tabs 03/07/23 10/24/23 Rx release 24 hr spironolactone 25 mg tablet 25 mg PO DAILY #90 tabs 03/07/23 10/24/23 Rx rivaroxaban 10 mg tablet (Xarelto) 10 mg PO DAILY #90 tabs 05/04/23 10/24/23 Rx beclomethasone dipropionate 40 1 inh inhalation Q12H #10.6 grams 09/05/23 10/24/23 Rx mcg/actuation HFA breath activated aerosol (Qvar RediHaler) fluticasone propionate 220 2 puff inhalation DAILY #12 grams 10/15/23 10/24/23 Rx mcg/actuation HFA aerosol inhaler cholecalciferol (vitamin D3) 25 1,000 unit PO DAILY 10/24/23 10/24/23 History mcg (1,000 unit) capsule (Vitamin D3) codeine 10 mg-guaifenesin 100 mg/5 10 ml PO Q4-6H PRN cough #120 mL 10/24/23 10/24/23 Rx mL oral liquid doxycycline monohydrate 100 mg 100 mg PO BID #20 tabs 10/24/23 10/24/23 Rx tablet prednisone 10 mg tablet 10 mg PO DIRECTED #21 tabs 10/24/23 10/24/23 Rx Have you fallen in the past year?: No PFSH Medical History Current use of watermaster anticoagulation Thyroid nodule Thyroid nodule, uninodular History of pulmonary embolism Hypertension Gallstones Breast lump Bone fracture Asthma Arthritis Seasonal allergies Surgical History S/P thyroid biopsy ( 09/2021) History of D C History of right oophorectomy History of cholecystectomy History of appendectomy History of tonsillectomy Family History Mother Asthma Arthritis Breast cancer Hypertension Osteoporosis Grandfather Asthma Sister Breast cancer Father Cancer brain Hypertension Social History Smoking Status: Never smoker alcohol intake: current alcohol intake frequency: a few times a month Alcohol type: wine substance use type: does not use what type of physical activity do you participate in: walking and weight training frequency: 3-4 times per week HPI HPI Details: HILARY RIVAS, is a 73 F who presents to the office today for an acute care follow-up visit. 73-year-old female has a history of asthma, seasonal allergies, hypertension on irbesartan, Xarelto, spironolactone and nifedipine. She started coughing several weeks ago now. Initially it coincided with her starting Qvar. Her insurance company would no longer cover Flovent HFA and substituted with Qvar. She felt the cough was starting right as she started taking Qvar. However she has sinus drainage, phlegm production, nighttime wheezing, coughing, gurgle. She has not had high-grade fever or shaking chills. She has sinus pressure. Has been using nasal saline and did start nasal Flonase. For a couple of weeks, she did not use any inhaled steroids but was just relying on her puffer. Things were getting worse. She did not necessarily want to go back on the Qvar she thought that is what was actually started the cough. However several days ago she did resume back on the Qvar. Review of systems per chart. Physical exam. Vital signs on chart. Room air pulse ox 95%, rose (more content not included)... Normal [facility] Special Stain Group IIon Special Stain Group II --- Patient Age/Sex Location Account Attending Physician HILARY RIVAS 73/F [facility] [id number] Dr. Damian Proctor MD Specimen: [id number] Received: 10/15/23-1446 Status: ERLIN Davies Num: [id number] Spec Type: ASPIRATION Subm Dr: Dr. Damian Proctor MD HEADER OPERATION: Left thyroid fine needle aspiration PRE-OP DIAGNOSIS: Left thyroid nodule TISSUE SUBMITTED: Left thyroid slides x8 DIAGNOSIS CYTOLOGY Left thyroid nodule, fine needle aspiration (smears): Consistent benign follicular/colloid nodule, Dundas Category II. Adequate for evaluation. See comment. / 10/16/2023 COMMENT Correlation with clinical, radiologic findings and appropriate follow up are necessary. The Dundas System for thyroid diagnostic categorization was used in the evaluation of this case. CYTOLOGY STUDY Slides are reviewed. CYTOLOGY GROSS Received are 8 smears labeled with the patient's name and designated per the requisition as Left thyroid. Submitted for staining. 10/16/2023 TC:5 CPT: 41886 Signed (signature on file) Dr. Steven Huff MD 10/17/23 1353 Normal [facility] Comment on above: Performed By: #### P SSII ####[facility] [id number] [place], [address] Surgery Visit Reporton 10-14 Surgery Visit Report [facility] [address] [place] [address] OFFICE VISIT Date of Service: 10/15/23 MR#: [id number] Acct: [id number] Name: HILARY RIVAS Rep #: [id number] : 1950 Provider: Dr. Damian Lizarraga Ceb MD clive Age/Sex: 73/F Location: [facility] Status: Signed Intake Vital Signs 09/05/23 13:38 10/04/23 08:23 10/15/23 13:45 Height 5 ft 4 in 5 ft 4 in 5 ft 4 in Weight: 198 lb 195 lb BMI 34.0 33.5 BP 135/85 H 142/79 H Blood Pressure Location Lt brachial Rt brachial Position Sitting Sitting Respiration 16 18 Pulse 84 89 Pulse Source Monitor Monitor Temp 98.0 F 97.3 F L Temp Source Temporal Temporal Pulse Oximetry (%) 97 99 Oxygen Delivery Method room air room air Intake Visit Reasons: THYROID NODULE,POSSIBLE FNA Chief Complaint: thyroid nodule, possible FNA Is patient in pain?: No Allergies diclofenac Adverse Reaction (Unknown, Verified 10/15/23 13:46) GI upset erythromycin base (Erythromycin Base) Adverse Reaction (Verified 10/15/23 13:46) Upset Stomach hydrochlorothiazide Adverse Reaction (Verified 10/15/23 13:46) Other indapamide Adverse Reaction (Verified 10/15/23 13:46) Other triamterene (From Dyazide) Adverse Reaction (Verified 10/15/23 13:46) Other Have you fallen in the past year?: No PFSH Medical History Current use of watermaster anticoagulation Thyroid nodule Thyroid nodule, uninodular History of pulmonary embolism Hypertension Gallstones Breast lump Bone fracture Asthma Arthritis Seasonal allergies Surgical History S/P thyroid biopsy ( 09/2021) History of D C History of right oophorectomy History of cholecystectomy History of appendectomy History of tonsillectomy Family History Mother Asthma Arthritis Breast cancer Hypertension Osteoporosis Grandfather Asthma Sister Breast cancer Father Cancer brain Hypertension Social History Smoking Status: Never smoker alcohol intake: current alcohol intake frequency: a few times a month Alcohol type: wine substance use type: does not use what type of physical activity do you participate in: walking and weight training frequency: 3-4 times per week HPI HPI HPI: 73-year-old female returns to for thyroid checkup. I have most recently seen her October 02, 2022. Prior to that October 12, 2021 I did perform an ultrasound-guided fine needle aspiration of a 2.7 cm and 1.1 cm left thyroid nodules. This technique was technically demanding. Cytology showed a larger left mid thyroid nodule benign follicular colloid nodule Dundas 2. The more inferior nodule Dundas category 2 follicular colloid nodule. As noted below on October 02, 2023 the patient had an updated thyroid ultrasound. I have personally reviewed these images. 1 right thyroid nodule and 3 left thyroid nodules are identified. In the left mid thyroid there is now a 4 x 3 x 1.5 cm nodule whereas previously it had been 3.5 x 3.1 x 1.7 cm nodule. This is graded as a TI-RADS 3 however radiology recommends fine needle aspiration. Fortunately the patient has had no acute symptoms. General health has remained stable. When she scheduled the appointment we did ask her to hold her Xarelto. October 02, 2023 INDICATION: thyroid nodule,goiter EXAMINATION: Ultrasound US Thyroid (eg thyroid, parathyroid, parotid) TECHNIQUE: Menjivar scale and color doppler imaging was performed of the thyroid gland. COMPARISON: Prior study dated: 09/26/2022 ____ FINDINGS: RIGHT THYROID LOBE: 5.4 x 2 x 2.2 cm, volume 12.7 mL. Previously 5 x 2.2 x 1.7 cm. Parenchyma: The gland echotexture is heterogeneous. Thyroid vascularity is normal. LEFT THYROID LOBE: 6.4 x 2.1 x 1.9 cm, volume 13.4 mL. Previously 5.8 x 2.4 x 1.9 cm. Parenchyma: The gland echotexture is heterogeneous. Thyroid vascularity is normal. ISTHMUS: 0.3 cm in maximum AP dimension. Previously 0.2 cm. Estimated total number of nodules greater than equal to 1 cm: 4. [employer] nodules are described as follows: 1. Location: Right mid Size: 1.2 x 1 x 0.8 cm, Previously: 1.5 x 0.9 x 0.8 cm. Nodule characteristics: Composition: Solid or almost completely solid (2). Echogenicity: Isoechoic (1). Shape: Wider than tall (0). Margins: Ill-defined (0). Echogenic Foci: None (0). ACR TI-RADS total points: 3. Previous 3. ACR TI-RADS category: 3. Previous 3 2. Location: Left mid Size: 4 x 3 x 1.5 cm. Previously: 3.5 x 3.1 x 1.7 cm. Nodule characteristics: Composition: Solid or almost completely solid (2). Echogenicit (more content not included)... Normal [facility] Thyroidon 10-02-2023 Thyroid [facility] [address], [place] [id number] Thyroid MR#: [id number] Acct: [id number] Name: HILARY RIVAS Rep #: [id number] : 1950 F 73 From: Anup agee MD PCP: Dr. Sd Mitchell MD Status: REG CLI Study: Thyroid Date of Exam: 10/02/23 Exam# [id number] Ordering Dr: Damian Proctor MD [id number] INDICATION: thyroid nodule,goiter EXAMINATION: Ultrasound US Thyroid (eg thyroid, parathyroid, parotid) TECHNIQUE: Menjivar scale and color doppler imaging was performed of the thyroid gland. COMPARISON: Prior study dated: 09/26/2022 ____ FINDINGS: RIGHT THYROID LOBE: 5.4 x 2 x 2.2 cm, volume 12.7 mL. Previously 5 x 2.2 x 1.7 cm. Parenchyma: The gland echotexture is heterogeneous. Thyroid vascularity is normal. LEFT THYROID LOBE: 6.4 x 2.1 x 1.9 cm, volume 13.4 mL. Previously 5.8 x 2.4 x 1.9 cm. Parenchyma: The gland echotexture is heterogeneous. Thyroid vascularity is normal. ISTHMUS: 0.3 cm in maximum AP dimension. Previously 0.2 cm. Estimated total number of nodules greater than equal to 1 cm: 4. [employer] nodules are described as follows: 1. Location: Right mid Size: 1.2 x 1 x 0.8 cm, Previously: 1.5 x 0.9 x 0.8 cm. Nodule characteristics: Composition: Solid or almost completely solid (2). Echogenicity: Isoechoic (1). Shape: Wider than tall (0). Margins: Ill-defined (0). Echogenic Foci: None (0). ACR TI-RADS total points: 3. Previous 3. ACR TI-RADS category: 3. Previous 3 2. Location: Left mid Size: 4 x 3 x 1.5 cm. Previously: 3.5 x 3.1 x 1.7 cm. Nodule characteristics: Composition: Solid or almost completely solid (2). Echogenicity: Isoechoic (1). Shape: Wider than tall (0). Margins: Smooth (0). Echogenic Foci: None (0). ACR TI-RADS total points: 3. Previous 3. ACR TI-RADS category: 3. Previous 3 3. Location: Left mid Size: 1.2 x 0.9 x 0.8 cm. Previously: 1.4 x 0.9 x 1.2 cm. Nodule characteristics: Composition: Mixed cystic and solid (1). Echogenicity: Hypoechoic (2). Shape: Wider than tall (0). Margins: Smooth (0). Echogenic Foci: None (0). ACR TI-RADS total points: 3. Previous 3. ACR TI-RADS category: 3. Previous 3 4. Location: Left mid Size: 1.2 x 0.6 x 0.9 cm. Previously: 1.3 x 0.6 x 1.1 cm. Nodule characteristics: Composition: Solid or almost completely solid (2). Echogenicity: Isoechoic (1). Shape: Wider than tall (0). Margins: Smooth (0). Echogenic Foci: None (0). ACR TI-RADS total points: 3. Previous 3. ACR TI-RADS category: 3. Previous 3 LYMPH NODES: No lymphadenopathy is seen in the tissue surrounding the thyroid gland. US/Thyroid IMPRESSION: Heterogeneous thyroid gland with numerous bilateral nodules. The dominant nodules are described above. Nodule #2 is appropriate for fine-needle aspiration if not performed previously. Remaining nodules require no specific follow-up based on size and appearance. ACR TI-RADS RECOMMENDATION REFERENCE: Ultrasound-guided fine-needle aspiration, follow-up ultrasound, no further follow-up. *TR 1 (0 points) and TR 2 (2 points): No FNA or follow-up. *TR 3 (3 points): FNA if more than or equal to 2.5 cm in maximum dimension. Follow-up ultrasound in 1, 3, and 5 years if 1.5 to 2.4 cm in maximum dimension. *TR 4 (4-6 points): FNA if more than or equal to 1.5 cm in maximum dimension. Follow-up ultrasound in 1, 2, 3, and 5 years if 1 to 1.4 cm in maximum dimension. *TR 5 (more than or equal to 7 points): FNA if more than or equal to 1 cm in maximum dimension. Follow-up ultrasound every year for 5 years if 0.5 to 0.9 cm in maximum dimension. *TR 3, TR 4, or TR 5 nodules that are below the size threshold for follow-up receive no follow-up. Electronically Signed: Anup Tavera MD at 4:32 EDT , CC: Dr. Sd Mitchell MD; Dr. Damian Proctor MD [employer]: Signed Normal [facility] Absolute lymphocyte countOrd ered By: Sd Mitchell on 02-14-2023 Lymphocytes Auto (Unsp spec) [#/Vol] 2.05 10*3/uL 0.83-4.51 [facility] Basophil percentageOrdered B y: Sd Mitchell on 02-14-2023 Basophils/100 WBC (Bld) 0.4 % 0-[address] [facility] Bilirubin [Mass/Vol] 1.30 mg/dL 0.20-1.00 [facility] Comment on above: For patients on eltr ombopag therapy, use of Dimension Rudyard TBIL is not recommended. Chloride [Moles/Vol] 108 mmol/L 98-107 [facility] Cholesterol [Mass/Vol] 195 mg/dL <200 [facility] Comment on above: <200 mg/dL Desirable 200-240 mg/dL Borderline >240 mg/dL High Risk Eosinophils/100 WBC (Bld) 7.5 % 0-5 [facility] Glucose [Mass/Vol] 104 mg/dL 74-106 [facility] Comment on above: Fasting Glucose resu lt from 100 to 125 mg/dL suggests IMPAIRED HOMEOSTASIS per A.D.A. criteria. Neutrophils (Bld) [#/Vol] 6.0 10*3/uL 2.0-7.7 [facility] Neutrophils/100 WBC (Bld) 63.7 % 47-70 [facility] Potassium [Moles/Vol] 4.1 mmol/L 3.5-5.1 [facility] Protein [Mass/Vol] 7.6 g/dL 6.4-8.2 [facility] Sodium [Moles/Vol] 139 mmol/L 136-145 [facility] Triglyceride [Mass/Vol] 213 mg/dL <[address] [facility] Comment on above: The drugs N-Acetylcy steine and Metamizole may falsely depress this assay.Serum Triglycerides Reference Interval Normal <150 mg/dL Borderline high 150 - 199 mg/dL High 200 - 499 mg/dL Very High > or = 500 mg/dL WBC (Bld) [#/Vol] 9.4 10*3/uL 4.4-11.0 [facility] Blood erythrocytes count (nu mber/volume)Ordered By: Sd Mitchell on 02-14-2023 RBC (Bld) [#/Vol] 5.30 10*6/uL 4.2-5.4 [facility] Blood hemoglobin measurement (mass/volume)Ordered By: Sd Mitchell on 02-14-2023 Hemoglobin (Bld) [Mass/Vol] 15.1 g/dL 12.0-15.0 [facility] Blood lymphocytes/100 leukoc ytesOrdered By: Sd Mitchell on 02-14-2023 Lymphocytes/100 WBC (Bld) 21.9 % 19-41 [facility] Blood monocytes/100 leukocyt esOrdered By: Sd Mitchell on 02-14-2023 Monocytes/100 WBC (Bld) 6.3 % 0-[address] [facility] Blood platelet mean volumeOr dered By: Sd Mitchell on 02-14-2023 Platelet mean volume (Bld) [Entitic vol] 10.0 fL 6.2-12.0 [facility] Determination of erythrocyte mean corpuscular volume (MCV)Ordered By: Sd Mitchell on 02-14-2023 MCV (RBC) [Entitic vol] 84.2 fL 81-99 [facility] Hematocrit Auto (Bld) [Volum e fraction]Ordered By: Sd Mitchell on 02-14-2023 Hematocrit (Bld) [Volume fraction] 44.6 % 37-47 [facility] Laboratory - Chemistry and C hemistry - challengeOrdered By: Sd Mitchell on 02-14-2023 ALP [Catalytic activity/Vol] 119 U/L 45-117 [facility] ALT [Catalytic activity/Vol] 34 U/L 13-56 [facility] CO2 [Moles/Vol] 26.0 mmol/L 21.0-32.0 [facility] Globulin (S) [Mass/Vol] 3.9 g/dL 2.2-4.[address] [facility] Urea nitrogen/Creatinine [Mass ratio] 17.4 mg/mg 10-20 [facility] Laboratory - Hematology and Cell countsOrdered By: Sd Mitchell on 02-14-2023 Erythrocyte distribution width (RBC) [Entitic vol] 42.9 fL 35.1-43.9 [facility] Erythrocyte distribution width (RBC) [Ratio] 14.1 % 11.6-14.6 [facility] Immature granulocytes/100 WBC (Bld) 0.200 % 0.0-0.9 [facility] Comment on above: IG% - Immature Granu locytes (promyelocytes, myelocytes and metamyelocytes) > 1% indicates that a LEFT SHIFT is Present. MCH (RBC) [Entitic mass] 28.5 pg 27.0-32.0 [facility] Nucleated RBC/100 WBC (Bld) [Ratio] 0 % 0-5 [facility] MCHC Auto (RBC) [Mass/Vol]Or dered By: Sd Mitchell on 02-14-2023 MCHC (RBC) [Mass/Vol] 33.9 g/dL 32-36 [facility] No Panel InformationOrdered By: Sd Mitchell on 02-14-2023 Estimated GFR (MDRD) Amer 107 mL/min >60 [facility] Comment on above: GFR Calc Estimated GFR (MDRD) Non-Af Amer 89 mL/min >60 [facility] Comment on above: Non- GFR Calc Thyroid Stimulating Hormone (TSH) 1.16 uIU/mL 0.358-3.74 [facility] Vitamin D 25-Hydroxy 27.2 ng/mL [facility] Comment on above: Vitamin D 25(OH) Sta tus Range Deficiency <20 ng/mL (50nmol/L) Insufficiency 20 - 30 ng/mL (50 - 75 nmol/L) Sufficiency 30 - 100 ng/mL (75 - 250 nmol/L) Toxicity >100 ng/mL (>250 nmol/L) Platelets bldOrdered By: Julissa Mitchell on 02-14-2023 Platelets (Bld) [#/Vol] 311 10*3/uL 150-450 [facility] Serum or plasma albumin north urement (mass/volume)Ordered By: Sd Mitchell on 02-14-2023 Albumin [Mass/Vol] 3.7 g/dL 3.2-5.0 [facility] Serum or plasma albumin/glob ulin mass ratioOrdered By: Sd Mitchell on 02-14-2023 Albumin/Globulin [Mass ratio] 0.9 {ratio} 0.9-2.4 [facility] Serum or plasma calcium north urement (mass/volume)Ordered By: Sd Mitchell on 02-14-2023 Calcium [Mass/Vol] 9.0 mg/dL 8.5-10.1 [facility] Serum or plasma cholesterol in HDL measurement (mass/volume)Ordered By: Sd Mitchell on 02-14-2023 Cholesterol in HDL [Mass/Vol] 43 mg/dL >40 [facility] Comment on above: The drugs N-Acetylcy steine and Metamizole may falsely depress this assay. Reference Range HDL <40 mg/dL Low HDL Cholesterol HDL >or= 60 mg/dL High HDL Cholesterol Serum or plasma cholesterol in VLDL measurement (mass/volume)Ordered By: Sd Mitchell on 02-14-2023 Cholesterol in VLDL [Mass/Vol] 43 mg/dL 5-40 [facility] Serum or plasma creatinine m easurement (mass/volume)Ordered By: Sd Mitchell on 02-14-2023 Creatinine [Mass/Vol] 0.69 mg/dL 0.55-1.02 [facility] Comment on above: The validity of the calculated GFR & GFRAA in patients over 70 years has not been determined. Clinical correlation is essential. Serum or plasma low density lipoprotein (LDL) cholesterol measurement (mass/volume)Ordered By: Sd Mitchell on 02-14-2023 Cholesterol in LDL [Mass/Vol] 109 mg/dL 0-130 [facility] Serum or plasma urea nitroge n measurement (mass/volume)Ordered By: Sd Mitchell on 02-14-2023 Urea nitrogen [Mass/Vol] 12 mg/dL 7-18 [facility] Thin prep Papanicolaou smear with manual screeningOrdered By: Sd Mitchell 02-14-2023 Thin prep Papanicolaou smear with manual screening 21 U/L 15-37 [facility] Thin prep Papanicolaou smear with manual screening 5 5-15 [facility] Absolute lymphocyte counton 03-13-2022 Lymphocytes Auto (Unsp spec) [#/Vol] 2.31 10*3/uL 0.83-4.51 [facility] Work Phone: Basophil percentageon 2021 Basophils/100 WBC (Bld) 0.4 % 0-[address] [facility] Work Phone: Bilirubin [Mass/Vol] 1.60 mg/dL 0.20-1.00 [facility] Work Phone: Comment on above: For patients on eltr ombopag therapy, use of Dimension Rudyard TBIL is not recommended. Chloride [Moles/Vol] 109 mmol/L 98-107 [facility] Work Phone: Cholesterol [Mass/Vol] 210 mg/dL <200 [facility] Work Phone: Comment on above: <200 mg/dL Desirable 200-240 mg/dL Borderline >240 mg/dL High Risk Eosinophils/100 WBC (Bld) 6.7 % 0-5 [facility] Work Phone: Glucose [Mass/Vol] 88 mg/dL 74-106 [facility] Work Phone: Neutrophils (Bld) [#/Vol] 5.6 10*3/uL 2.0-7.7 [facility] Work Phone: Neutrophils/100 WBC (Bld) 61.0 % 47-70 [facility] Work Phone: Potassium [Moles/Vol] 4.5 mmol/L 3.5-5.1 [facility] Work Phone: Comment on above: Moderate Hemolysis, Result may be falsely increased. Protein [Mass/Vol] 8.1 g/dL 6.4-8.2 [facility] Work Phone: Sodium [Moles/Vol] 139 mmol/L 136-145 [facility] Work Phone: Triglyceride [Mass/Vol] 235 mg/dL <[address] [facility] Work Phone: Comment on above: The drugs N-Acetylcy steine and Metamizole may falsely depress this assay.Serum Triglycerides Reference Interval Normal <150 mg/dL Borderline high 150 - 199 mg/dL High 200 - 499 mg/dL Very High > or = 500 mg/dL WBC (Bld) [#/Vol] 9.3 10*3/uL 4.4-11.0 [facility] Work Phone: Blood erythrocytes count (nu mber/volume)on 03-13-2022 RBC (Bld) [#/Vol] 5.44 10*6/uL 4.2-5.4 [facility] Work Phone: Blood hemoglobin measurement (mass/volume)on 03-13-2022 Hemoglobin (Bld) [Mass/Vol] 15.5 g/dL 12.0-15.0 [facility] Work Phone: Blood lymphocytes/100 leukoc yteson 03-13-2022 Lymphocytes/100 WBC (Bld) 24.9 % 19-41 [facility] Work Phone: Blood monocytes/100 leukocyt eson 03-13-2022 Monocytes/100 WBC (Bld) 6.8 % 0-[address] [facility] Work Phone: Blood platelet mean volumeon 03-13-2022 Platelet mean volume (Bld) [Entitic vol] 10.3 fL 6.2-12.0 [facility] Work Phone: Determination of erythrocyte mean corpuscular volume (MCV)on 03-13-2022 MCV (RBC) [Entitic vol] 84.6 fL 81-[address] [facility] Work Phone: Hematocrit Auto (Bld) [Volum e fraction]on 03-13-2022 Hematocrit (Bld) [Volume fraction] 46.0 % 37-47 [facility] Work Phone: Laboratory - Chemistry and C hemistry - challengeon 03-13-2022 ALP [Catalytic activity/Vol] 116 U/L 45-117 [facility] Work Phone: ALT [Catalytic activity/Vol] 32 U/L 13-56 [facility] Work Phone: CO2 [Moles/Vol] 22.0 mmol/L 21.0-32.0 [facility] Work Phone: Globulin (S) [Mass/Vol] 4.2 g/dL 2.2-4.[address] [facility] Work Phone: Urea nitrogen/Creatinine [Mass ratio] 19.0 mg/mg 10-20 [facility] Work Phone: Laboratory - Hematology and Cell countson 03-13-2022 Erythrocyte distribution width (RBC) [Entitic vol] 42.5 fL 35.1-43.9 [facility] Work Phone: Erythrocyte distribution width (RBC) [Ratio] 13.9 % 11.6-14.6 [facility] Work Phone: Immature granulocytes/100 WBC (Bld) 0.200 % 0.0-0.9 [facility] Work Phone: Comment on above: IG% - Immature Granu locytes (promyelocytes, myelocytes and metamyelocytes) > 1% indicates that a LEFT SHIFT is Present. MCH (RBC) [Entitic mass] 28.5 pg 27.0-32.0 [facility] Work Phone: Nucleated RBC/100 WBC (Bld) [Ratio] 0 % 0-5 [facility] Work Phone: MCHC Auto (RBC) [Mass/Vol]on 03-13-2022 MCHC (RBC) [Mass/Vol] 33.7 g/dL 32-36 [facility] Work Phone: No Panel Informationon 03-13 Estimated GFR (MDRD) Amer 100 mL/min >60 [facility] Work Phone: Comment on above: GFR Calc Estimated GFR (MDRD) Non-Af Amer 82 mL/min >60 [facility] Work Phone: Comment on above: Non- GFR Calc Thyroid Stimulating Hormone (TSH) 1.52 uIU/mL 0.358-3.74 [facility] Work Phone: Vitamin D 25-Hydroxy 30.1 ng/mL [facility] Work Phone: Comment on above: Vitamin D 25(OH) Sta tus Range Deficiency <20 ng/mL (50nmol/L) Insufficiency 20 - 30 ng/mL (50 - 75 nmol/L) Sufficiency 30 - 100 ng/mL (75 - 250 nmol/L) Toxicity >100 ng/mL (>250 nmol/L) Platelets bldon 03-13-2022 Platelets (Bld) [#/Vol] 314 10*3/uL 150-450 [facility] Work Phone: Serum or plasma albumin north urement (mass/volume)on 03-13-2022 Albumin [Mass/Vol] 3.9 g/dL 3.2-5.0 [facility] Work Phone: Serum or plasma albumin/glob ulin mass ratioon 03-13-2022 Albumin/Globulin [Mass ratio] 0.9 {ratio} 0.9-2.4 [facility] Work Phone: Serum or plasma calcium north urement (mass/volume)on 03-13-2022 Calcium [Mass/Vol] 9.5 mg/dL 8.5-10.1 [facility] Work Phone: Serum or plasma cholesterol in HDL measurement (mass/volume)on 03-13-2022 Cholesterol in HDL [Mass/Vol] 48 mg/dL >40 [facility] Work Phone: Comment on above: The drugs N-Acetylcy steine and Metamizole may falsely depress this assay. Reference Range HDL <40 mg/dL Low HDL Cholesterol HDL >or= 60 mg/dL High HDL Cholesterol Serum or plasma cholesterol in VLDL measurement (mass/volume)on 03-13-2022 Cholesterol in VLDL [Mass/Vol] 47 mg/dL 5-40 [facility] Work Phone: Serum or plasma creatinine m easurement (mass/volume)on 03-13-2022 Creatinine [Mass/Vol] 0.74 mg/dL 0.55-1.02 [facility] Work Phone: Comment on above: The validity of the calculated GFR & GFRAA in patients over 70 years has not been determined. Clinical correlation is essential. Serum or plasma low density lipoprotein (LDL) cholesterol measurement (mass/volume)on 03-13-2022 Cholesterol in LDL [Mass/Vol] 115 mg/dL 0-130 [facility] Work Phone: Serum or plasma urea nitroge n measurement (mass/volume)on 03-13-2022 Urea nitrogen [Mass/Vol] 14 mg/dL 7-18 [facility] Work Phone: Thin prep Papanicolaou smear with manual screeningon 03-13-2022 Thin prep Papanicolaou smear with manual screening 33 U/L 15-37 [facility] Work Phone: Comment on above: Moderate Hemolysis, Result may be falsely increased. Thin prep Papanicolaou smear with manual screening 8 5-15 [facility] Work Phone: Vital Signs Date Time Vital Sign Value Performing Clinician Briannai king 09-03-2024 13:29-0400 Body height 162.[address] Sd Mitchell MD Work Phone: [facility] 09-03-2024 13:29-0400 Body mass index (BMI) [Ratio] 34 kg/m2 Dr. Sd Mitchell MD Work Phone: [facility] 09-03-2024 13:29-0400 Body temperature 97.8 [degF] Dr. Sd Mitchell MD Work Phone: [facility] 09-03-2024 13:29-0400 Body weight 89.[address] Sd Mitchell MD Work Phone: [facility] 09-03-2024 13:29-0400 Diastolic blood pressure 74 mm[Hg] Dr. Sd Mitchell MD Work Phone: [facility] 09-03-2024 13:29-0400 Heart rate 76 /min Dr. Sd Mitchell MD Work Phone: [facility] 09-03-2024 13:29-0400 Respiratory rate 16 /min Dr. Sd Mitchell MD Work Phone: [facility] 09-03-2024 13:29-0400 SaO2% (BldA) [Mass fraction] 95 % Dr. Sd Mitchell MD Work Phone: [facility] 09-03-2024 13:29-0400 Systolic blood pressure 115 mm[Hg] Dr. Sd Mitchell MD Work Phone: [facility] 05-30-2024 10:27-0500 Body temperature 98.4 [degF] Dr. Sd Mitchell MD Work Phone: [facility] 05-30-2024 10:27-0500 Diastolic blood pressure 72 mm[Hg] Dr. Sd Mitchell MD Work Phone: [facility] 05-30-2024 10:27-0500 Heart rate 96 /min Dr. Sd Mitchell MD Work Phone: [facility] 05-30-2024 10:27-0500 Respiratory rate 17 /min Dr. Sd Mitchell MD Work Phone: [facility] 05-30-2024 10:27-0500 SaO2% (BldA) [Mass fraction] 98 % Dr. Sd Mitchell MD Work Phone: [facility] 05-30-2024 10:27-0500 Systolic blood pressure 132 mm[Hg] Dr. Sd Mitchell MD Work Phone: [facility] 01-14-2023 10:45-0400 Body height 162.[address] Sd Mitchell Work Phone: [facility] 01-14-2023 10:45-0400 Body mass index (BMI) [Ratio] 34.1 kg/m2 Dr. Sd Mitchell Work Phone: [facility] 01-14-2023 10:45-0400 Body temperature 97.8 [degF] Dr. Sd Mitchell Work Phone: [facility] 01-14-2023 10:45-0400 Body weight 90.[address] Sd Mitchell Work Phone: [facility] 01-14-2023 10:45-0400 Diastolic blood pressure 80 mm[Hg] Dr. Sd Mitchell Work Phone: [facility] 01-14-2023 10:45-0400 Heart rate 101 /min Dr. Sd Mitchell Work Phone: [facility] 01-14-2023 10:45-0400 Respiratory rate 16 /min Dr. Sd Mitchell Work Phone: [facility] 01-14-2023 10:45-0400 SaO2% (BldA) [Mass fraction] 96 % Dr. Sd Mitchell Work Phone: [facility] 01-14-2023 10:45-0400 Systolic blood pressure 136 mm[Hg] Dr. Sd Mitchell Work Phone: [facility] 03-08-2022 12:52-0500 Body temperature 97.5 [degF] Dr. Sd Mitchell Work Phone: [facility] Work Phone: 03-08-2022 12:52-0500 Body weight 87.[address] Sd Mitchell Work Phone: [facility] Work Phone: 03-08-2022 12:52-0500 Diastolic blood pressure 88 mm[Hg] Dr. Sd Mitchell Work Phone: [facility] Work Phone: 03-08-2022 12:52-0500 Heart rate 94 /min Dr. Sd Mitchell Work Phone: [facility] Work Phone: 03-08-2022 12:52-0500 Respiratory rate 16 /min Dr. Sd Mitchell Work Phone: [facility] Work Phone: 03-08-2022 12:52-0500 SaO2% (BldA) [Mass fraction] 95 % Dr. Sd Mitchell Work Phone: [facility] Work Phone: 03-08-2022 12:52-0500 Systolic blood pressure 134 mm[Hg] Dr. Sd Mitchell Work Phone: [facility] Work Phone: 09-26-2021 14:03-0400 Body height 162.[address] Sd Mitchell Work Phone: [facility] Work Phone: 09-26-2021 14:03-0400 Body mass index (BMI) [Ratio] 32.4 kg/m2 Dr. Sd Mitchell Work Phone: [facility] Work Phone: 09-26-2021 14:03-0400 Body weight 85.[address] Sd Mitchell Work Phone: [facility] Work Phone: 09-26-2021 14:03-0400 Diastolic blood pressure 79 mm[Hg] Dr. Sd Mitchell Work Phone: [facility] Work Phone: 09-26-2021 14:03-0400 Respiratory rate 16 /min Dr. Sd Mitchell Work Phone: [facility] Work Phone: 09-26-2021 14:03-0400 Systolic blood pressure 131 mm[Hg] Dr. Sd Mitchell Work Phone: [facility] Work Phone: 08-31-2021 13:28-0400 Body mass index (BMI) [Ratio] 32.2 kg/m2 Dr. Sd Mitchell Work Phone: [facility] Work Phone: 08-31-2021 13:28-0400 Body temperature 98.3 [degF] Dr. Sd Mitchell Work Phone: [facility] Work Phone: 08-31-2021 13:28-0400 Body weight 85.[address] Sd Mitchell Work Phone: [facility] Work Phone: 08-31-2021 13:28-0400 Diastolic blood pressure 68 mm[Hg] Dr. Sd Mitchell Work Phone: [facility] Work Phone: 08-31-2021 13:28-0400 Heart rate 82 /min Dr. Sd Mitchell Work Phone: [facility] Work Phone: 08-31-2021 13:28-0400 Respiratory rate 14 /min Dr. Sd Mitchell Work Phone: [facility] Work Phone: 08-31-2021 13:28-0400 SaO2% (BldA) [Mass fraction] 98 % Dr. Sd Mitchell Work Phone: [facility] Work Phone: 08-31-2021 13:28-0400 Systolic blood pressure 124 mm[Hg] Dr. Sd Mitchell Work Phone: [facility] Work Phone: Encounters Encounter Date Encounter Type Care Provider Facility Start: 09-22-2024 [facility] Sd Mitchell Facility :[facility] Start: 09-03-2024 End: 09-03-[address] Sd Mitchell MD -[facility] Work Phone: Start: 09-03-2024 End: 09-03-[address] Sd Mitchell MD Work Phone: [facility] Work Phone: Start: 05-30-2024 End: 05-30-2024 Patient encounter procedure Reese Yu [place] -[facility] Work Phone: Start: 05-30-2024 End: 05-30-2024 ambulatory Sd Mitchell Facility:[facility] Start: 03-18-2024 End: 03-18-2024 ambulatory SD MITCHELL Facility:[facility] Start: 03-18-2024 End: 03-18-2024 Subsequent hospital visit by physician Screen Mammo [facility] Start: 03-05-2024 End: 03-05-2024 ambulatory Sd Mitchell Facility:[facility] Start: 11-22-2023 End: 11-22-2023 ambulatory Sd Mitchell Facility:[facility] Start: 11-22-2023 End: 11-22-2023 ambulatory Sd Mitchell Facility:[facility] Start: 11-01-2023 End: 11-01-2023 ambulatory Sd Mitchell Facility:[facility] Start: 10-24-2023 End: 10-24-2023 ambulatory Sd Mitchell Facility:[facility] Start: 10-15-2023 End: 10-15-2023 ambulatory Damian Mccarthybumitchell Facility:[facility] Start: 10-15-2023 End: 10-15-2023 ambulatory Damian Mccarthybul Facility:[facility] Start: 10-02-2023 End: 10-02-2023 ambulatory Damian D Sharibumitchell Facility:[facility] Start: 02-14-2023 End: 02-14-[address] Sd Mitchell Work Phone: [facility] Work Phone: Start: 02-14-2023 End: 02-14-[address] [facility]d Mitchell [facility] Start: 01-14-2023 End: 01-14-[address] Sd Mitchell Work Phone: [facility] Work Phone: Start: 03-13-2022 End: 03-13-[address] Sd Mitchell Work Phone: [facility] Work Phone: Start: 03-13-2022 End: 03-13-[address] Sd Mitchell Work Phone: [facility] Start: 03-08-2022 End: 03-08-[address] Sd Mitchell Work Phone: [facility] Start: 02-06-2022 End: 02-06-[address] Sd Mitchell Work Phone: [facility] Start: 10-13-2021 End: 10-13-[address] Sd Mitchell Work Phone: [facility] Start: 10-12-2021 End: 10-12-[address] Sd Mitchell Work Phone: [facility] Start: 09-26-2021 End: 09-26-[address] Sd Mitchell Work Phone: [facility] Start: 08-31-2021 End: 08-31-[address] Sd Mitchell Work Phone: [facility] Procedures Date Procedure Procedure Detail Performing Clinician Start: 04-23-2021 H/O: surgery S/P thyroid biopsy Dr. Sd Mitchell Work Phone: Start: 04-05-2020 Lipid 1996 panel - Serum or Plasma Screen Wstr H/O: surgery History of D&C Dr. Sd carson Work Phone: History of appendectomy History of append ectomy Dr. Sd Mitchell Work Phone: History of cholecystectomy History of cholecystectomy Dr. Sd Mitchell Work Phone: History of tonsillectomy History of tonsi llectomy Dr. Sd Mitchell Work Phone: Plan of Treatment Date Care Activity Detail Author Start: 04-05-2025 Lipid panel Lipid Screening [facility] Start: 02-28-2024 RSV Vaccine (1 - 1-d ose 75+ series) RSV Vaccine (1 - 1-dose 75+ series) [facility] Start: 12-23-2023 Covid-19 Vaccine ( season) Covid-19 Vaccine ( season) [facility] Start: 04-23-2023 Advance Directive Discussion Advance Directive Discussion [facility] Start: 04-05-2023 Diabetes Screening Diabetes Screenin g [facility] Start: 04-07-2021 Annual PCP Team Hand Shaper shiloh Disease Visit Annual PCP Team Chronic Disease Visit [facility] Start: 10-09-2020 Screening for malign ant neoplasm of breast Mammogram Screening [facility] Start: 01-30-2020 Urine microalbumin profile DTaP,Tdap,Td Vaccine (3 - Tdap) [facility] Start: 12-26-2018 Screening for malign ant neoplasm of colon [facility] Start: 06-18-2009 Shingrix Vaccine (2 of 3) Marcial grix Vaccine (2 of 3) [facility] Start: 1994 Screening for malign ant neoplasm of colon [facility] Start: 1967 Anxiety Screening Anxiety Screening [facility] Start: 1967 BP Controlled (<130/80) BP Con trolled (<130/80) [facility] Start: 1967 Depression Screening Depression Scre ening [facility] Start: 1967 Spirometry Spirometry [facility] Hemoglobin A1c/Hemoglobin.total in Blood [facility] Immunizations Immunization Date Immunization Notes Care Provider Fa cility 02-06-2022 influenza, injectabl e, quadrivalent, preservative free Dr. Sd Mitchell Work Phone: [facility] 02-06-2022 influenza, seasonal, injectable Dr. Sd Mitchell Work Phone: [facility] Work Phone: 02-16-2020 influenza (HD-IIV4) vaccine, age 65+ yr, high dose, quadrivalent, PF (FLUZONE HIGH-DOSE) Screen [facility] 02-16-2020 influenza, injectabl e, quadrivalent, preservative free Dr. Sd Mitchell Work Phone: [facility] 02-16-2020 influenza, seasonal, injectable Dr. Sd Mitchell Work Phone: [facility] Work Phone: 02-19-2017 influenza, high dose seasonal, preservative-free Screen [facility] 02-25-2016 influenza, high dose seasonal, preservative-free Screen [facility] 03-23-2015 pneumococcal polysaccharide vaccine, [address] Sd Mitchell Work Phone: [facility] 03-11-2015 influenza, seasonal, injectable Screen [facility] 04-06-2014 pneumococcal conjuga te vaccine, [address] Sd Mitchell Work Phone: [facility] 01-21-2014 influenza, seasonal, injectable Screen [facility] 01-28-2013 influenza virus vacc ine, unspecified formulation Screen [facility] 02-07-2012 influenza virus vacc ine, unspecified formulation Screen [facility] 01-29-2010 diphtheria and tetan us toxoids, adsorbed for pediatric use Screen [facility] 01-29-2010 Diptheria,Tetanus,Pe rtus sis Vaccine Dr. Sd Mitchell Work Phone: [facility] 04-23-[address] Sd Mitchell Work Phone: [facility] 04-23-2009 zoster vaccine, live Screen [facility] 01-19-2009 influenza virus vacc ine, unspecified formulation Screen [facility] Work Phone: 03-01-2006 influenza virus vacc ine, unspecified formulation Screen [facility] Work Phone: 10-05-2003 diphtheria and tetan us toxoids, adsorbed for pediatric use Screen [facility] 10-05-2003 Diptheria,Tetanus,Pe rtus sis Vaccine Dr. Sd Mitchell Work Phone: [facility] 03-10-2003 pneumococcal polysaccharide vaccine, [address] Sd Mitchell Work Phone: [facility] Payers Date Payer Category Payer Self-pay [id number] 2022 Unknown [id number] 2019 Unknown [employer] [facility] MEDICARE SUPPLEMENT [id number] 2019-Present [phone] [id number] [place] [address] [facility] [id number] 2019 Medicare [id number] 2014 Medicare MEDICARE MEDICAR E A AND B [id number] 2014-Present [phone] [address] [address] [place] [address] Medicare [id number] 2012 Medicare [id number] Unknown [id number] 2 Unknown [id number] 2 Unknown [id number] 2 Unknown [id number] 2 Unknown [id number] 2 Unknown [id number] 2 Unknown [id number] 2 Unknown [id number] [id number] 2 Unknown [id number] [id number] 2 Unknown [id number] 2 Unknown [id number] 2 Social History Date Type Detail Facility Start: 10-12-2021 End: 01-14-2023 Tobacco smoking status [facility] Unknown if ever smoked [facility] Start: 08-19-2020 Occasional [facility] Start: 08-19-2020 None [facility] Start: 08-19-2020 Homeless [facility] Start: 08-19-2020 Non-smoker [facility] Start: 1950 Sex Assigned At Female [facility] Start: 02-12-2012 End: 10-24-2023 Tobacco smoking status GAIS Never smoked tobacco [facility] Start: 02-12-2012 Tobacco use and exposure Smokeless tobacco non-user [facility] Start: 04-07-2020 Alcoholic beverage intake Current drinker of alcohol (finding) [facility] Start: 04-07-2020 End: 03-18-2024 History of Social function [facility] Start: 04-07-2020 End: 03-18-2024 Tobacco use panel [facility] Adult Depression Screening Assessment 0 [facility] Start: 1950 Sex assigned at Not on file [facility] Evaluation note 05-30-2024 Note Date & Type Note Facility 05-30-2024 Evaluation note Diagnosis Onset Date Resolution Asthma exacerbation acute Febru garrison 7th, 2025 10:11am Asthma acute September 03, 2024 1:20pm Multinodular goiter acute August 212024 1:20pm Seasonal allergies acute September 032024 1:20pm Hypertension chronic September 03 1:20pm [facility] Work Phone: Evaluation note Note Date & Type Note Facility Evaluation note Diagnosis Onset Date Arthritis acute Asthma acute Current use of watermaster anticoagulation acute Multinodular goiter acute Seasonal allergies acute Hypertension chronic Multinodular goiter acute Thyroid nodule acute [facility] Work Phone: Evaluation note Note Date & Type Note Facility Evaluation note Diagnosis Onset Date Asthma acute Dyspnea on exertion acute Multinodular goiter acute Seasonal allergies acute Thyroid nodule acute Hypertension chronic [facility] Work Phone: Evaluation note Note Date & Type Note Facility Evaluation note Diagnosis Onset Date Maxillary sinusitis acute [facility] Work Phone: Reason for referral (narrative) Note Date & Type Note Facility Reason for referral (narrative) No reason for referral information available [employer] Work Phone: Chief Complaint and Reason for Visit Chief Complaint 6 M FU Thyroid Nodule LEFT THYROID BIOPSY X2 MULTIPLE THYROID NODULES Reason for Visit Arthritis Asthma Current use of intermediate anticoagulation Multinodular goiter Seasonal allergies Hypertension Multinodular goiter Thyroid nodule Chief Complaint FLU VACCINE 6 M FU LABWORK Reason for Visit Asthma Dyspnea on exertion Multinodular goiter Seasonal allergies Thyroid nodule Hypertension Chief Complaint COUGH, SINUS CONGEST ION Reason for Visit Maxillary sinusitis Chief Complaint Admit Date Cough May 30, 2024 1 0:11am 6 M FU September 03, 2024 1:20p m Reason for Visit Admit Date Asthma exacerbation May 30, 2024 1 0:11am Asthma September 03, 2024 1:20p m Multinodular goiter September 03, 2024 1:20p m Seasonal allergies September 03, 2024 1:20p m Hypertension September 03, 2024 1:20p m Family History No Family History Records Found Relationship Condition Age at Onset Recorded Date/T leann mother Asthma Unknown Arthritis Unknown Malignant neoplasm of breast Unknown Hypertension Unknown Osteoporosis Unknown grandfather Asthma Unknown sister Malignant neoplasm of breast Unknown father Malignant neoplasm Unknown Advance Directives No Advanced Directives Records Found Advance Directive Response Recorded Date/ Time Living Will No January 16, 2017 12:05pm Power of Planning Technician No December 12:05pm Advance Directive Response Recorded Date/ Time Living Will No January 16, 2017 11:05am Power of Planning Technician No December 11:05am Summary Purpose Additional Source Comments Goals (unrecognized section and content) Goals may be documented in a n alternate sectionGoals may be documented in an alternate sectionGoals may be documented in an alternate sectionGoals may be documented in an alternate section Care Teams (unrecognized sec tion and content) Team Status: Active Member Role Status Dates Dr. Anna Davies MD Family Provider Active Dr. Sd Mitchell MD Primary Care Provider Active Team Status: Inactive Member Role Status Dates Dr. Sd Mitchell MD Primary Care Provider, Referri ng Provider Active Jassi Lr MULTISKILL OPERATOR, MULTISKILL OPERATOR-C Attending Provider Active Team Status: Inactive Member Role Status Dates Dr. Sd Mitchell MD Primary Care Pro vider, Attending Provider, Referring Provider Active Stores Naval Relationship Specialty Start Date End Date Sd Mitchell MD [address] [place] [address] PCP - General Internal Medicine 04/05/21 Team Status: Active Member Role Status Dates Dr. Sd Mitchell MD Primary Care Provider Active Team Status: Inactive Member Role Status Dates Dr. Sd Mitchell MD Primary Care Provider Active Start: May 30, 2024 End: May 30, 2024 Dr. Sd Mitchell MD Referring Provider Active Start: May 30, 2024 End: May 30, 2024 Reese MCKENZIE PA Attending Provider Active Sta rt: May 30, 2024 End: May 30, 2024 Team Status: Inactive Member Role Status Dates Dr. Sd Mitchell MD Primary Care Provider Active Start: September 03, 2024 End: September 03, 2024 Dr. Sd Mitchell MD Attending Provider Active Start: September 03, 2024 End: September 03, 2024 Source Comments (unrecognize d section and content) In the event this informatio n is protected by the Federal Confidentiality of Alcohol and Drug Abuse Patient Records regulations: The Federal rules restrict any use of the information to criminally investigate or prosecute any alcohol or drug abuse patient.[facility] INFORMATION SOURCE (unrecogn ized section and content) DATE CREATED AUTHOR 03/21/2024 [facility] DATE CREATED AUTHOR AUTHOR'S ORGANIZ ATION 09/23/2024 [facility] FOR RECORDS PERTAINING TO PATIENTS WHO ARE OR HAVE BEEN ENROLLED IN A CHEMICAL DEPENDENCY/SUBSTANCEABUSE PROGRAM, SOME INFORMATION MAY BE OMITTED. This clinical summary was aggregated from multiple sources. Caution should be exercised in using it in the provision of clinical care. This summary normalizes information from multiple sources, and as a consequence, information in this document may materially change the coding, format and clinical context of patient data. In addition, data may be omitted in some cases. CLINICAL DECISIONS SHOULD BE BASED ON THE PRIMARY CLINICAL RECORDS. [facility] [employer] [facility]. provides no warranty or guarantee of the accuracy or completeness of information in this document.
[2024-09-24 12:30] LABS: Absolute Lymphocyte Count 2.28 X10^3/uL (0.83-4.51); Absolute Neutrophil Count 6.4 X10^3/uL (2.0-7.7); Basophil# 0.05 X10^3/uL; Basophil% 0.5 % (0-1); Eosinophil# 0.65 X10^3/uL; Eosinophils% 6.4 % (0-5); Hematocrit 44.8 % (37-47); Hemoglobin 15.3 g/dL (12.0-15.0); Lymphocyte # 2.28 X10^3/ul (0.83-4.51); Lymphocyte % 22.5 % (19-41); Mean Corp Hgb Conc 34.2 g/dL (32-36); Mean Corpuscular Hgb 28.4 pg (27.0-32.0); Mean Corpuscular Volume 83.3 fL (81-99); Mean Platelet Vol. 9.8 fl (6.2-12.0); Monocyte# 0.73 X10^3/uL; Monocyte% 7.2 % (0-10); NRBC Flagged by Analyzer 0 % (0-5); Neutrophil % 63.2 % (47-70); Platelet Count 321 K/mm3 (150-450); RBC Distribution Width CV 13.8 % (11.6-14.6); RBC Distribution Width SD 41.6 fl (35.1-43.9); Red Blood Count 5.38 M/mm3 (4.2-5.4); White Blood Count 10.1 K/mm3 (4.4-11.0)
[2024-09-24 12:53] LABS: Hemoglobin A1c 5.2 % (<=5.6)
[2024-09-24 13:12] LABS: ALB/GLOB Ratio 1.2 RATIO (0.9-2.4); AST(SGOT) 22 U/L (<=31); Alanine Aminotransfer ALT/SGPT 20 U/L (<=34); Albumin, Serum 4.2 g/dL (3.4-4.8); Alkaline Phosphatase 117 U/L (35-104); Anion Gap 12 (5-15); BUN 15 mg/dL (4-19); BUN/Creat Ratio 20.8 RATIO (10-20); Calcium,Total 9.6 mg/dL (7.6-11.0); Carbon Dioxide 21.9 mmol/L (21.0-32.0); Chloride 105 mmol/L (98-108); Cholesterol 212 mg/dL (<=200); Creatinine, Serum 0.71 mg/dL (0.70-1.20); EST Glomerular Filtration Rate 88 (>60); Globulin 3.4 g/dL (2.2-4.2); Glucose 90 mg/dL (70-99); High Density Lipoprotein 41 mg/dL; Low Density Lipoprotein Calc. 121 mg/dL; Magnesium 2.3 mg/dL (1.5-2.2); Potassium 4.2 mmol/L (3.3-5.1); Protein, Total 7.6 g/dL (5.9-8.4); Sodium Level 138 mmol/L (133-145); Total Bilirubin 1.09 mg/dL (0.00-1.30); Triglycerides 253 mg/dL; Very Low Density Lipoprotein 51 mg/dL (5-40); Vitamin D,25 Hydroxy 23.9 ng/mL (30-100); cholesterol:hdl ratio screen 5.23
== END | disposition home or self-care (01) ==
LOC: BIMLAB 08:45
PROVIDERS: PCP Internal Medicine; Referring Provider Internal Medicine; Visit Provider Internal Medicine
DX: I10 Essential (primary) hypertension (principal); E04.1 Nontoxic single thyroid nodule; E55.9 Vitamin D deficiency, unspecified; J45.909 Unspecified asthma, uncomplicated; M19.90 Unspecified osteoarthritis, unspecified site; R73.9 Hyperglycemia, unspecified; Z13.220 Encounter for screening for lipoid disorders; Z79.01 Long term (current) use of anticoagulants; Z86.711 Personal history of pulmonary embolism
CPT/HCPCS: 36415; 80053; 80061; 82306; 83036; 83735; 84443; 85025

== ENCOUNTER → 2024-10-23 | Outpatient (CLI) | payer MEDICARE, OTHER, SELFPAY ==
--- NOTE | 2024-10-23 14:56 | CT_ITS ---
PROCEDURE: SOFT TISSUE NECK W/WO CONTRAST 10/23/2024 REASON FOR EXAM: MULTINODULAR GOITER TECHNIQUE: SOFT TISSUE NECK W/WO CONTRAST CONTRAST: 75 cc Isovue-300 One or more dose reduction techniques were used (e.g., Automated exposure control, adjustment of the mA and/or kV according to patient size, use of iterative reconstruction technique). FINDINGS: The precontrast images demonstrate no abnormal calcifications in the salivary glands are oral cavity. No airway compromise. Heterogeneous thyroid gland noted. No airway compromise. Contrast-enhanced imaging demonstrate the left lobe of the thyroid gland to extend to the level of the sternal notch but not below. No airway compromise. Tiny nodules within the gland better assessed with ultrasound. The craniocaudal extent of the left lobe is approximately 6 cm with a transverse measurement of 3 cm. No substernal extension on the right. Normal tracheoesophageal groove. CT/Soft Tissue Neck W/WO Contrast IMPRESSION: Extension of the left thyroid lobe to the level of the sternal notch. No lumin al airway compromise. No adenopathy. Reading [facility]
== END | disposition home or self-care (01) ==
LOC: CT 14:55
PROVIDERS: PCP Internal Medicine; Referring Provider Surgery; Visit Provider Surgery
DX: E04.2 Nontoxic multinodular goiter (principal)
CPT/HCPCS: 70492; Q9967

== ENCOUNTER 2024-11-26 05:48 | Day surgery (SDC) | payer MEDICARE, OTHER, SELFPAY ==
--- NOTE | 2024-11-17 11:59 | EKG12_ITS ---
Test Reason : PREOP Blood Pressure : */* mmHG Vent. Rate : 92 BPM Atrial Rate : 92 BPM P-R Int : 176 ms QRS Dur : 134 ms QT Int : 404 ms P-R-T Axes : 60 -23 83 degrees QTcB Int : 499 ms Normal sinus rhythm Left bundle branch block Abnormal ECG Confirmed by KARINA MEJIA, SKINNY ([id number]), editor department SHRADDHA MALDONADO ([id number]) on 11/17/2024 2:03:00 PM Referred By: Riley Mandel Confirmed By: SKINNY COLLINS MD
--- NOTE | 2024-11-21 19:55 | PAT.ANE_ITS ---
Pre-Assessment Diagnosis/Proposed Procedure Planned Operative Procedure(s): (L) Thyroid lobectomy w/isthmus & IONM Anesthesia History Anesthesia History - council on aging director: Anesthesia History - council on aging director Hx Hospitalization No 11/12/24 09:25 Any Problems With Anesthesia No 11/12/24 09:25 Cholinesterase deficiency No 11/12/24 09:25 You/Your Family Experience No 11/12/24 09:25 fever (hyperthermia) with Relationship Recent Exposure to Contagious Disease Does patient have nerve No 11/12/24 09:25 stimulator Patient instructed to have device shut off --Does patient have Pacemaker or ICD? When Was Last Pacemaker Check QUESTION #4 FULL TEXT: You/Your Family Experience fever (hyperthermia) with Anesthesia Last Oral Intake Last Oral intake: Last Oral Intake NPO since Meds taken in AM with sips of water? Meds patient instructed to take am of surgery PONV PONV - council on aging director: PONV - council on aging director Female Yes 11/12/24 09:25 HX of Motion Sickness No 11/12/24 09:25 HX of N/V After Surgery No 11/12/24 09:25 Non-Smoker Yes 11/12/24 09:25 Duration of Surgery greater Yes 11/12/24 09:25 than 60 minutes Number of Risk Factors 3 11/12/24 09:25 PONV Score Moderate Risk 11/12/24 09:25 Height & Weight Height & Weight: Anesthesia: Height & Weight Height 5 ft 4 in 11/03/24 12:54 Respiratory Assessment Respiratory Assessment - council on aging director: Respiratory Tract Infection Hx - council on aging director Hx Respiratory Tract Infection STOP Sleep Apnea STOP Sleep Apnea - council on aging director: STOP Sleep Apnea - council on aging director Hx Hypertension Yes: CONTROLLED ON MED 11/12/24 09:25 Hx Sleep Apnea No 11/12/24 09:25 CPAP BIPAP Do you snore loudly (louder No 11/12/24 09:25 than talking or can be heard Do you often feel tired/ No 11/12/24 09:25 fatigued/ sleepy during daytime? Has anyone observed you stop No 11/12/24 09:25 breathing during sleep? STOP Results Negative 11/12/24 09:25 QUESTION #5 FULL TEXT : Do you snore loudly (louder than talking or can be heard through closed doors)? Tobacco Use History Tobacco Use History - council on aging director: Tobacco Use History - council on aging director Tobacco Use Non-smoker 10/24/23 08:12 Smoking Status Never smoker 11/12/24 09:25 Hx Tobacco Use No 11/12/24 09:25 Years Smoking Packs Smoked per Day Smoking Cessation Date was within the last 15 years Hx Smoking Cessation Date Hx Smoking Cessation Counseling Hematologic Medial History Hematologic Hx - council on aging director: Hematologic Medical Hx - environmental engineer Hx of Blood Transfusion No 11/12/24 09:25 Hx of Transfusion in last 3 No 11/12/24 09:25 Months Date of Last Transfusion (if within last 3 months) Ever experience any problems No 11/12/24 09:25 with transfusion(s)? Specify any problems Hx of Preganancy in last 3 No 11/12/24 09:25 Months Nurse Filling Out Transfusion VCHRISTIN 11/12/24 09:25 & Questions: Date: 11/12/24 11/12/24 09:25 Time: 09:11/12/24 09:25 Patient unable to answer at this time (ie. confused, unrespo /Reproduction History /Reproductive History - council on aging director: /Reproductive Hx- council on aging director Hx Now No 11/12/24 09:25 Gestational Age (in weeks): EDC: Hx Hx Para Hx Section SAB No 11/12/24 09:25 [facility] Medical History (Updated 11/12/24 @ 09:25 by Cher May) Wears glasses Post-menopausal Alcohol use DVT (deep venous thrombosis) Easy bruising Excessive bleeding Injury of head and neck History of diverticulitis Non-smoker Chronic cough History of edema History of echocardiogram History of irregular heartbeat 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 Thyroid nodule Thyroid nodule, uninodular History of pulmonary embolism Hypertension Gallstones Breast lump Bone fracture Asthma Arthritis Seasonal allergies Home Medications ?Medication ?Instructions ?Recorded ?Last Taken ?Type cetirizine 10 mg capsule (Zyrtec) 10 mg PO DAILY 09/1301/28/15 History cholecalciferol (vitamin D3) 25 1,000 unit PO DAILY Unknown History mcg (1,000 unit) capsule (Vitamin D3) albuterol sulfate 90 mcg/actuation 2 puff inhalation Q 6H PRN 03/05/24 Unknown Rx aerosol inhaler shortness of breath or wheez ing #8.5 grams fluticasone furoate 100 1 inh inhalation DAILY #90 e a 03/05/24 Unknown Rx mcg/actuation blister powder for inhalation (Arnuity Ellipta) irbesartan 300 mg tablet 300 mg PO DAILY #90 tabs 12/15 Unknown Rx nifedipine 60 mg tablet,extended 60 mg PO DAILY #90 ta bs 04/30/24 Unknown Rx release 24 hr rivaroxaban 10 mg tablet (Xarelto) 10 mg PO DAILY #90 tabs 04/30/24 Unknown Rx spironolactone 25 mg tablet 25 mg PO DAILY #90 tabs Unknown Rx montelukast 10 mg tablet 10 mg PO QHS 11/12/24 Unknow n History Allergy/AdvReac Type Severity Reaction Status Date / Time diclofenac AdvReac Unknown GI upset Verified 11/12/24 09:10 erythromycin base AdvReac Upset Verified 11/12/24 09:10 (Erythromycin Base) Stomach hydrochlorothiazide AdvReac Other Verified 11/12/24 09:10 indapamide AdvReac Other Verified 11/12/24 09:10 triamterene (From Dyazide) AdvReac Other Verified 11/12/24 09:10 Family History Mother Asthma Arthritis Hypertension Osteoporosis Grandfather Asthma Sister Breast cancer Father Cancer brain Hypertension Aunt Breast cancer Surgical History (Updated 11/12/24 @ 09:25 by Cher May) Hx of section History of bunionectomy of right great toe History of cataract surgery S/P thyroid biopsy (~09/2021) History of D&C History of right oophorectomy History of cholecystectomy History of appendectomy History of tonsillectomy Social History Smoking Status: Never smoker alcohol intake: current alcohol intake frequency: a few times a month Alcohol type: wine substance use type: does not use what type of physical activity do you participate in: walking and weight training frequency: 3-4 times per week Audit: Pertinent Findings Pertinent Findings EKG Perinent findings: November 17, 2024. Normal sinus rhythm. Left bundle branch block. Echo (EF%) pertinent findings: March 10, 2021 EF of 55%. PASP is 35 mmHg. No aortic stenosis. Recommendation Anesthesia Recommendation Anesthesia recommendation: OPTIMIZED for anesthesia
[2024-11-26] VITALS (15 sets, daily range): BP systolic 113–145; BP diastolic 71–90; PULSE 80–112; RESP 9–18; TEMP 36.3–36.9; O2SAT 78–98; BMI 34.0
--- OUTSIDE RECORDS SUMMARY | 2024-11-26 05:50 | XMS RPT_ITS | CCD ---
Author Organization [facility] CliniSyvt Care Team Providers Care Performance Makeup Artist Name Role Phone Dr. Sd Mitchell Primary Care Provider Dr. Sd Mitchell Attending Provider [phone] Dr. Sd Mitchell Referring Provider [phone] Dr. Damian Proctor Attending Provider [phone] Dr. Sd Mitchell Primary Care Provider Dr. Sd Mitchell Referring Provider [phone] Jean Carlos MCKENZIE, PA Charanjit Arrieta Attending Provider Dr. Sd Mitchell Attending Provider [phone] Dr. Sd Mitchell Primary Care Provider Dr. Sd Mitchell Referring Provider Be CHERRY SORTER, CHERRY SORTER-Alfredo Hess Attending Provider Sd Mitchell MD Primary Care Provider SD MITCHELL Referring Unavailable SD MITCHELL Primary Care Unavailable Dr. Sd Mitchell MD Primary Care Provider Dr. Sd Mitchell MD Referring Provider Reese Gu Attending Provider [phone] Dr. Sd Mitchell MD Attending Provider Dr. Riley Mandel MD Attending Provider [phone] Dr. Riley Mandel MD Referring Provider Dr. Sd Mitchell MD Primary Care Provider Dr. Sd Mitchell MD Referring Provider Sd Mitchell Referring Unavailable Reese Gu Attending Unavailable Luz, Sd Primary Care Unavailable LuzSd Attending Unavailable Luz, Sd Primary Care Unavailable Bortz, Riley Referring Unavailable Luz, Sd Primary Care Unavailable Jayson Hare Attending Unavailable Bortz, Riley Attending Unavailable Luz, Sd Primary Care Unavailable Luz, Sd Referring Unavailable Bortz, Riley Attending Unavailable Luz, Sd Primary Care Unavailable Luz, Sd Referring Unavailable Luz, Sd Attending Unavailable Luz, Sd Primary Care Unavailable Bortz, Riley Referring Unavailable Bortz, Riley Attending Unavailable Luz, Sd Primary Care Unavailable Luz, Sd Primary Care Unavailable Luz, Sd Referring Unavailable Sd Mitchell Attending Unavailable Borjanna, Riley Attending Unavailable Bortz, Riley Referring Unavailable Luz, Sd Primary Care Unavailable Bortz, Riley Referring Unavailable Bortz, Riley Attending Unavailable Luz, Sd Primary Care Unavailable Allergies Allergy Classification Reported Allergen(s) Allergy Type Date of Onset Reaction(s) Facility (9 sources) Diclofenac Drug Allergy 10-13-19 22 GI upset [facility] (10 sources) Erythromycin Drug Allergy 03-21-20 05 GI [facility] (11 sources) hydroCHLOROthiazide; Translations: [HYDROCHLOROTHIAZIDE] Drug Allergy 05-19-19 09 Intolerance [facility] (11 sources) Indapamide; Translations: [INDAPAMIDE] Drug Allergy 04-13-20 11 Other: See Comments [facility] (9 sources) Triamterene Drug Allergy 10-13-19 Other [facility] (1 source) Diclofenac Drug Allergy 04-09-20 07 GI Upset [facility] (2 sources) hydroCHLOROthiazide / Triamterene; Translations: [TRIAMTERENE-HYDROCHLO ROTHIAZID] Drug Allergy 04-07-20 08 Intolerance [facility] (1 source) Erythromycin; Translations: [ERYTHROMYCIN] Drug Allergy 03-21-20 05 [facility] (1 source) OTHER; Translations: [OTHER] Propensity to adverse reactions (disorder) 04-09-20 [facility] (1 source) Diclofenac Drug Allergy 11-13-19 [facility] (1 source) Erythromycin Drug Allergy 11-13-19 25 [facility] (1 source) hydroCHLOROthiazide Drug Allergy 11-13-19 25 [facility] (1 source) Indapamide Drug Allergy 11-13-19 25 [facility] (1 source) Triamterene Drug Allergy 11-13-19 [facility] Medications Current Medications Medication Drug Class(es) Dates Sig (Normalized) Sig (Original) [id number] actuat albuterol 0.09 mg/actuat metered dose inhaler (14 sources) beta2-Adrenergic Agonist Start: 09-06-2022 End: 03-05-2024 Albuterol Sulfate 90 mcg/actuation HFA aerosol inhaler Active 2 NMA INHALATION EVERY 6 HOURS as needed for shortness of breath or wheezing 8.5 March 05, 2024 2:44pm With spacer please Start: 09-06-2022 take 1 puff(s) by in halation every six hours Albuterol Sulfate Active 2 PUFF INHALATION EVERY 6 HOURS 8.5 September 06, 2022 12:00am With spacer please Start: 04-07-2020 take 2 puff(s) by in halation every four hours as needed albuterol HFA (PROAIR HFA) 90 mcg/actuation inhaler Indications: Mild intermittent asthma without complication Inhale 2 Puffs as instructed every 4 hours as needed. 18 g 04/07/2020 Active cetirizine hydrochloride 10 mg oral tablet (10 sources) Histamine-1 Receptor Antagonist Start: 06-05-2016 take 1 tablet by mouth once daily cetirizine (ZYRTEC) 10 mg tablet Indications: Seasonal allergic rhinitis, unspecified allergic rhinitis trigger Take 1 tablet by mouth once daily. 0 06/05/2016 Active Start: 09-13-2013 take 1 capsule by [facility] once daily Cetirizine (Zyrtec) 10 MG capsule Active 10 mg PO DAILY September 13, 2013 12:00am metroNIDAZOLE 0.0075 mg/mg topical gel (19 sources) Nitroimidazole Antimicrobial Start: 08-07-2017 metroNIDAZOLE (METROGEL) [...] 13, 2013 12:00am August 30, 2020 11:26am warfarin sodium 7.5 mg oral tablet (20 sources) Vitamin K Antagonist Start: 12-24-2019 take [...] mg / clavulanate 125 mg oral tablet (16 sources) Penicillin-class Antibacterial Start: 01-14-2023 End: 01-21-2023 Amoxicillin-Pot Clavulanate 875-125 mg tablet Discontinued 1 {tbl} PO TWICE A DAY 14 7 0 January 14, 2023 12:00am January 20, 2023 12:00am January 21, 2023 12:04am Start: 01-14-2023 End: 01-21-2023 take 1 tablet by mouth twice daily Amoxicillin-Pot Clavulanate Discontinued 1 TABLET PO TWICE A DAY 14 7 January 14, 2023 12:00am January 21, 2023 12:04am Start: 12-22-2016 End: 09-01-2020 take 1 tablet by mouth every twelve hours Amoxicillin-Pot Clavulanate 875 MG tablet Discontinued 875 mg PO Q12H 20 0 December 22, 2016 12:00am September 01, 2020 2:00pm azithromycin 250 mg oral tablet (6 sources) Macrolide Antimicrobial Start: 05-30-2024 End: 09-03-2024 take 2-5 tablets by mouth once daily Azithromycin 250 mg tablet Discontinued 0 PO .COMPLEX 6 0 May 30, 2024 1:00am September 03, 2024 1:22pm take 500 mg today (day 1), then 250 mg for 4 days (days 2-5) PO Beclomethasone Dipropionate (6 sources) Corticosteroid Start: 09-05-2023 End: 03-05-2024 take 40 ug by inhalation every twelve hours Beclomethasone Dipropionate (Qvar Redihaler) 40 mcg/actuation HFA aerosol breath activated Discontinued 1 NMA INHALATION Q12H 10.6 5 September 05, 2023 12:00am March 05, 2024 2:34pm Start: 09-05-2023 End: 03-05-2024 take 40 ug by inhalation every twelve hours Beclomethasone Dipropionate (Qvar Redihaler) 40 mcg/actuation HFA aerosol breath activated Discontinued 1 NMA INHALATION Q12H 10.6 September 05, 2023 12:00am March 05, 2024 2:34pm benzonatate 100 mg oral capsule (12 sources) Non-narcotic Antitussive Start: 05-30-2024 End: 09-03-2024 take 2 capsules by mouth three times daily as needed for cough Benzonatate 100 mg capsule Discontinued 200 mg PO THREE TIMES A DAY as needed for cough 30 0 September 03, 2024 1:27pm September 03, 2024 1:28pm cholecalciferol 0.025 mg oral capsule (16 sources) Vitamin D Start: 03-27-2011 End: 10-24-2023 take 1 capsule by mouth once daily Cholecalciferol (Vitamin D3) (Vitamin D3) 1,000 UNIT capsule Discontinued 1000 U PO DAILY September 13, 2013 12:00am October 24, 2023 1:07pm ciprofloxacin 500 mg oral tablet (9 sources) Quinolone Antimicrobial Start: 01-16-2017 End: 09-01-2020 take 1 tablet by mouth twice daily Ciprofloxacin Hcl 500 MG tablet Discontinued 500 mg PO TWICE A DAY 0 January 16, 2017 12:00am September 01, 2020 2:00pm codeine phosphate 2 mg/ml / guaiFENesin 20 mg/ml oral solution (6 sources) Opioid Agonist Start: 10-24-2023 End: 11-22-2023 take 1 mL by mouth every four to six hours as needed for cough Codeine-Guaifenesin 10-100 mg/5 mL liquid Discontinued 10 mL PO EVERY 4-6 HOURS as needed for cough 120 0 October 24, 2023 12:00am November 22, 2023 10:58am doxycycline monohydrate 100 mg oral tablet (12 sources) Tetracycline-class Drug Start: 10-24-2023 End: 03-05-2024 take 1 tablet by mouth twice daily Doxycycline Monohydrate 100 mg tablet Discontinued 100 mg PO TWICE A DAY 14 0 November 22, 2023 11:16am March 05, 2024 2:34pm Take on empty stomach with a couple of crackers and small amount of water. Do not take with dairy products. 30 actuat fluticasone furoate 0.1 mg/actuat dry powder inhaler (20 sources) Corticosteroid Start: 11-23-2023 End: 03-05-2024 take 100 ug by inhalation once daily Fluticasone Furoate (Arnuity Ellipta) 100 mcg/actuation blister with device Discontinued 1 NMA INHALATION DAILY 30 January 08, 2024 12:25pm March 05, 2024 2:45pm Start: 11-16-2020 End: 09-05-2023 Fluticasone Propionate (Flov ent Hfa) 220 mcg/actuation HFA aerosol inhaler Discontinued 2 NMA INHALATION DAILY 12 January 02, 2023 5:00pm September 05, 2023 [...] with device Discontinued 2 NMA INHALATION DAILY 60 1 November 16, 2020 11:55am November 16, 2020 2:42pm Start: 09-13-2013 End: 03-03-2021 take 1 puff(s) by inhalation once daily Fluticasone 220 Mcg (Flovent 220 Mcg) 1 INHALER inhaler Discontinued 2 PUFF INHALATION DAILY September 13, 2013 12:00am March 03, 2021 1:57pm Fluticasone Propionate 220 mcg/actuation HFA aerosol inhaler (12 sources) Start: 10-24-2023 End: 03-05-2024 Fluticasone Propionate 220 mcg/actuation HFA aerosol inhaler Discontinued 2 NMA INHALATION DAILY 12 October 24, 2023 2:41pm March 05, 2024 2:34pm On Hold: Order Changed Start: 10-24-2023 End: 03-05-2024 Fluticasone Propionate 220 m cg/actuation HFA aerosol inhaler Discontinued 2 NMA INHALATION DAILY October 24, 2023 2:41pm March 05, 2024 2:34pm On Hold: Order Changed Start: 10-15-2023 End: 10-24-2023 Fluticasone Propionate 220 m cg/actuation HFA aerosol inhaler Discontinued 2 NMA INHALATION DAILY 12 October 15, 2023 10:04am October 24, 2023 2:41pm Start: 10-15-2023 End: 10-24-2023 Fluticasone Propionate 220 m cg/actuation HFA aerosol inhaler Discontinued 2 NMA INHALATION DAILY October 15, 2023 10:04am October 24, 2023 2:41pm irbesartan 300 mg oral tablet (20 sources) Angiotensin 2 Receptor Ida Start: 04-07-2020 End: 04-30-2024 take 1 tablet by mouth once daily Irbesartan 300 mg tablet Discontinued 300 mg PO DAILY 90 3 March 07, 2023 5:54pm April 30, 2024 12:42pm methylPREDNISolone 4 mg oral tablet (6 sources) Corticosteroid Start: 05-30-2024 End: 06-05-2024 take 1 tablet by mouth once Methylprednisolone (Medrol (Glenn)) 4 mg tablets,dose pack Discontinued 4 mg PO per package directions 21 6 0 May 30, 2024 1:00am June 04, 2024 1:00am June 05, 2024 1:11am montelukast 10 mg oral tablet (20 sources) Leukotriene Receptor Antagonist Start: 09-13-2013 End: 04-30-2024 take 1 tablet by mouth once daily Montelukast 10 mg tablet Discontinued 10 mg PO DAILY 90 March 07, 2023 5:54pm April 30, 2024 12:42pm NIFEdipine 60 mg osmotic 24 hr extended release oral tablet (20 sources) Dihydropyridine Calcium Channel Ida Start: 04-07-2020 End: 04-30-2024 take 1 tablet by mouth once daily Nifedipine 60 mg tablet extended release 24hr Discontinued 60 mg PO DAILY 90 March 07, 2023 5:54pm April 30, 2024 12:42pm predniSONE 10 mg oral tablet (12 sources) Start: 10-24-2023 End: 03-05-2024 Prednisone 10 mg tablet Discontinued 10 mg PO As Directed November 22, 2023 11:16am March 05, 2024 2:35pm Take 4 tabs daily for 3 days, then 2 tabs daily for 3 days, then 1 tab daily for 3 days then stop. rivaroxaban 10 mg oral tablet (20 sources) Factor Xa Inhibitor Start: 09-02-2020 End: 04-30-2024 take 1 tablet by mouth once daily Rivaroxaban (Xarelto) 10 mg tablet Discontinued 10 mg PO DAILY May 04, 2023 2:00pm April 30, 2024 12:42pm spironolactone 25 mg oral tablet (20 sources) Aldosterone Antagonist Start: 09-13-2013 End: 04-30-2024 take 1 tablet by mouth once daily Spironolactone 25 mg tablet Discontinued 25 mg PO DAILY March 07, 2023 5:54pm April 30, 2024 12:42pm Problems Active Problems Problem Classification Problem Date Documented Date Episodic/Chronic Asthma (20 sources) Asthma; Translations: [Unspecified asthma, uncomplicated] Onset: Chronic Biliary tract disease (9 sources) Gallstone; Translations: [Calculus of gallbladder without cholecystitis without obstruction] 08-30-2020 Episodic Diabetes mellitus without complication (1 source) Hyperglycemia, unspecified; Translations: [Hyperglycemia, unspecified] Onset: 5 Episodic Disorders of lipid metabolism (1 source) Mixed hyperlipidemia; Translations: [Mixed hyperlipidemia] Onset: 7 03-23-2015 Chronic Diverticulosis and diverticulitis (10 sources) Diverticulitis of intestine; Translations: [Diverticulitis of intestine, part unspecified, without perforation or abscess without bleeding] Onset: 6 12-23-2016 Chronic Essential hypertension (19 sources) Hypertensive disorder; Translations: [Essential (primary) hypertension] Onset: 5 Chronic Heart valve disorders (9 sources) Ejection murmur; Translations: [Cardiac murmur, unspecified] 03-03-2021 Episodic Nonmalignant breast conditions (9 sources) Breast lump; Translations: [Unspecified lump in unspecified breast] 08-30-2020 Episodic Osteoarthritis (10 sources) Arthritis; Translations: [Unspecified osteoarthritis, unspecified site] Chronic Other aftercare (10 sources) Long-term current use of anticoagulant; Translations: [long term care administrator (current) use of anticoagulants] Onset: 3 09-01-2020 Episodic Other aftercare (1 source) correction (current) use of anticoagulants; Translations: [Long-term (current) use of anticoagulants] Episodic Other inflammatory condition of skin (1 source) Rosacea; Translations: [Rosacea, unspecified] Onset: 8 11-01-2023 Chronic Other inflammatory condition of skin (1 source) Psoriasis; Translations: [Other psoriasis] Onset: 8 11-01-2023 Chronic Other injuries and conditions due to external causes (9 sources) Fracture of bone; Translations: [Other injury of unspecified body region, initial encounter] 08-30-2020 Episodic Other lower respiratory disease (9 sources) Dyspnea on exertion; Translations: [Dyspnea, unspecified] 03-03-2021 Episodic Other lower respiratory disease (1 source) Other forms of dyspnea; Translations: [Other respiratory abnormalities] Episodic Other lower respiratory disease (6 sources) Cough; Translations: [Cough] 10-24-2023 Episodic Other nutritional; endocrine; and metabolic disorders (1 source) Metabolic syndrome X; Translations: [Metabolic syndrome] Onset: 4 07-11-2013 Chronic Other skin disorders (7 sources) Actinic keratosis; Translations: [Actinic keratosis] 09-06-2022 Episodic Other skin disorders (6 sources) Cyst of skin; Translations: [Follicular cyst of the skin and subcutaneous tissue, unspecified] 03-07-2023 Episodic Other upper respiratory disease (15 sources) Seasonal allergy; Translations: [Other seasonal allergic rhinitis] 08-30-2020 Chronic Other upper respiratory disease (2 sources) Other seasonal allergic rhinitis; Translations: [Allergic rhinitis, cause unspecified] Chronic Other upper respiratory infections (8 sources) Maxillary sinusitis; Translations: [Chronic maxillary sinusitis] 01-14-2023 Chronic Other upper respiratory infections (6 sources) Acute upper respiratory infection; Translations: [Acute upper respiratory infection, unspecified] 10-24-2023 Episodic Pulmonary heart disease (10 sources) H/O: pulmonary embolus; Translations: [Personal history of pulmonary embolism] Onset: 3 08-30-2020 Episodic Residual codes; unclassified (9 sources) History of right oophorectomy; Translations: [Acquired absence of ovaries, unilateral] 08-30-2020 Episodic Thyroid disorders (20 sources) Thyroid nodule; Translations: [Nontoxic single thyroid nodule] Onset: 6 Chronic Comment on above: Patient is a 74-year -old female who has been under thyroid nodule surveillance for the last 9 years, first to the [facility] and then with Dr. Proctor until his jail last year. She reports numerous previous thyroid FNAs including apparently at least 3 separate fine-needle aspirations for a dominant left-sided thyroid nodule. All biopsy results have been benign. I shared with her the results of her most recent thyroid ultrasound exam and explained to her the first-line treat is using ACR TI-RADS grading system. I then shared how the SULEMA defines significant growth based on single dimensions and volumetric expansion. I shared with patient that her left sided thyroid nodule, once again, met criteria for repeat biopsy demonstrating a 54% increase in growth. However, I cautioned that I did not believe a repeat biopsy at this time would be additive. I believe 3 prior procedures all showing benign results should be considered definitive and if the nodule continues to grow that a discussion should be held around possible surgical intervention. I conceded that patient does not appear to have any compressive symptoms but did recommend she consider a left thyroid lobectomy since her thyroid gland seems to be disproportionately skewed to the left. I added that I would recommend she undergo CT imaging of the neck to determine if there is any evidence of external compression on surrounding anatomy and if there is a significant substernal component. I shared this latter point was further critical after performing an ultrasound exam where I identified at least a portion of the inferior pole diving deep to the left clavicle. Patient was receptive of this information and hand drawings were made to illustrate relevant points. We briefly discussed the risks attendant with a thyroid lobectomy. Will plan to follow-up with a second office visit once the CT of the neck is complete to determine her interest and the technical feasibility of proceeding with thyroid lobectomy. Past or Other Problems Problem Classification Problem [...] dermatitis, unspecified] Onset: 06-12-2007 11-01-2023 Episodic Other skin disorders (1 source) Infection of sebaceous cyst; Translations: [Sebaceous cyst] Onset: 11-09-2015 11-09-2015 Episodic Phlebitis; thrombophlebitis and thromboembolism (2 sources) Venous thrombosis; Translations: [Acute embolism and thrombosis of unspecified vein] Onset: 04-22-2009 04-22-2009 Episodic Residual codes; unclassified (8 sources) Past history of procedure; Translations: [Other specified postprocedural states] Onset: 04-23-2021 10-12-2021 Episodic Results Test Name Value Interpretation Reference Range Facility MR/Irene 11-21-2024 MR/MARTINEZ [facility] Medical Records Department [address] [facility] [place] [address] PAT - Anesthesia 11/21/241954 MR#: [id number] Acct: [id number] Name: HILARY RIVAS Rep #: [id number] : 1950 74 From: Celio Massey MD PCP: Dr. Sd Mitchell MD Status:PRE [facility] [place] Race: C [place] [facility] Pre-Assessment Diagnosis/Proposed Procedure Planned Operative Procedure(s): (L) Thyroid lobectomy w/isthmus IONM Anesthesia History Anesthesia History - sourcing coordinator: Anesthesia History - sourcing coordinator Hx Hospitalization No 11/12/24 09:25 Any Problems With Anesthesia No 11/12/24 09:25 Cholinesterase deficiency No 11/12/24 09:25 You/Your Family Experience No 11/12/24 09:25 fever (hyperthermia) with Relationship Recent Exposure to Contagious Disease Does patient have nerve No 11/12/24 09:25 stimulator Patient instructed to have device shut off --Does patient have Pacemaker or ICD? When Was Last Pacemaker Check QUESTION #4 FULL TEXT: You/Your Family Experience fever (hyperthermia) with Anesthesia Last Oral Intake Last Oral intake: Last Oral Intake NPO since Meds taken in AM with sips of water? Meds patient instructed to take am of surgery PONV PONV - sourcing coordinator: PONV - sourcing coordinator Female Yes 11/12/24 09:25 HX of Motion Sickness No 11/12/24 09:25 HX of N/V After Surgery No 11/12/24 09:25 Non-Smoker Yes 11/12/24 09:25 Duration of Surgery greater Yes 11/12/24 09:25 than 60 minutes Number of Risk Factors 3 11/12/24 09:25 PONV Score Moderate Risk 11/12/24 09:25 Height Weight Height Weight: Anesthesia: Height Weight Height 5 ft 4 in 11/03/24 12:54 Respiratory Assessment Respiratory Assessment - sourcing coordinator: Respiratory Tract Infection Hx - sourcing coordinator Hx Respiratory Tract Infection STOP Sleep Apnea STOP Sleep Apnea - sourcing coordinator: STOP Sleep Apnea - sourcing coordinator Hx Hypertension Yes: CONTROLLED ON MED 11/12/24 09:25 Hx Sleep Apnea No 11/12/24 09:25 CPAP BIPAP Do you snore loudly (louder No 11/12/24 09:25 than talking or can be heard Do you often feel tired/ No 11/12/24 09:25 fatigued/ sleepy during daytime? Has anyone observed you stop No 11/12/24 09:25 breathing during sleep? STOP Results Negative 11/12/24 09:25 QUESTION #5 FULL TEXT : Do you snore loudly (louder than talking or can be heard through closed doors)? 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 Specify any problems Hx of Preganancy in last 3 No 11/12/24 09:25 Months Nurse Filling Out Transfusion VCHRISTIN 11/12/24 09:25 Questions: Date: 11/12/24 11/12/24 09:25 Time: :11/12/24 09:25 Patient unable to answer at this time (ie. confused, unrespo /Reproductio n History /Reproductiv e History - sourcing coordinator: /Reproductiv e Hx- sourcing coordinator Hx Now No 11/12/24 09:25 Gestational Age (in weeks): EDC: Hx Hx Para Hx Section SAB No 11/12/24 09:25 [facility] Medical History (Updated 11/12/24 @ 09:25 by Cher May) Wears glasses Post-menopausal Alcohol use DVT (deep venous thrombosis) Easy bruising Excessive bleeding Injury of head and neck History of diverticulitis Non-smoker Chronic cough History of edema History of echocardiogram History of irregular heartbeat Current use of long-term anticoagulation Thyroid nodule Thyroid nodule, uninodular History of pulmonary embolism Hypertension Gallstones Breast lump Bone fracture Asthma Arthritis Seasonal allergies Home Medications ???Medication ???Instructions ???Recorded ???Last Taken ???Type cetirizine 10 mg capsule (Zyrtec) 10 mg PO DAILY 09/13/13 01/28/15 History cholecalciferol (vitamin D3) 25 1,000 unit PO DAILY 10/24/23 Unkno wn History mcg (1,000 unit) capsule (Vitamin D3) albuterol sulfate 90 mcg/actuation 2 puff inhalation Q6H PRN Unknown Rx aerosol inhaler s (more content not included)... Normal [facility] 12 Lead EKGon 11-17-2024 12 Lead EKG [facility] Cardiovascular Services [address] [place] [address] 12 Lead EKG 11/17/24 1205 MR#: [id number] Acct: [id number] Name: HILARY RIVAS Rep #: [id number] : 1950 74 From: Jayson Hare MD Attending Dr: Dr. Riley Mandel MD Status: PRE [facility] Ordering Dr: Celio Massey MD Date: 11/17/24 [place] [facility] [place] Sex: F C Admitted: Test Reason : PREOP Blood Pressure : */* mmHG Vent. Rate : 92 BPM Atrial Rate : 92 BPM P-R Int : 176 ms QRS Dur : 134 ms QT Int : 404 ms P-R-T Axes : 60 -23 83 degrees QTcB Int : 499 ms Normal sinus rhythm Left bundle branch block Abnormal ECG Confirmed by JAYSON HARE MD ([id number]), order editor SHRADDHA MALDONADO ([id number]) on 11/17/2024 2:03:00 PM Referred By: Riley Mandel Confirmed By: JAYSON HARE MD 11/17/24 7333 Date Jayson Hare MD CC: Dr. Celio Massey MD; Dr. Sd Mitchell MD; Dr. Riley Mandel MD Signed Normal [facility] Surgery Visit Reporton 11-03 Surgery Visit Report [facility] [address] [place] [address] OFFICE VISIT Date of Service: 11/03/24 MR#: [id number] Acct: [id number] Name: HILARY RIVAS Rep #: [id number] : 1950 Provider: Dr. Riley garcía MD Age/Sex: 74/F Location: [facility] Status: Signed Intake Vital Signs 09/30/24 13:52 11/03/24 12:54 Height 5 ft 4 in 5 ft 4 in Weight: 199 lb 200 lb BMI 34.1 34.3 BP 122/80 H 137/85 H Blood Pressure Location Rt brachial Rt brachial Position Sitting Sitting Respiration 17 18 Pulse 89 74 Pulse Source Monitor Monitor Temp 97.2 F L Temp Source Temporal Pulse Oximetry (%) 100 98 Oxygen Delivery Method room air room air Intake Visit Reasons: REVIEW CT RESULTS Chief Complaint: review CT Is patient in pain?: No Allergies diclofenac Adverse Reaction (Unknown, Verified 11/03/24 12:54) GI upset erythromycin base (Erythromycin Base) Adverse Reaction (Verified 11/03/24 12:54) Upset Stomach hydrochlorothiazide Adverse Reaction (Verified 11/03/24 12:54) Other indapamide Adverse Reaction (Verified 11/03/24 12:54) Other triamterene (From Dyazide) Adverse Reaction (Verified 11/03/24 12:54) Other Medications ???Medication ???Instructions ???Recorded ???Confirmed ???Type cetirizine 10 mg capsule (Zyrtec) 10 mg PO DAILY 09/13/13 11/03/24 History cholecalciferol (vitamin D3) 25 1,000 unit PO DAILY 10/24/2311/03 History mcg (1,000 unit) capsule (Vitamin D3) albuterol sulfate 90 mcg/actuation 2 puff inhalation Q6H PRN 11/03/24 Rx aerosol inhaler shortness of breath or wheezing #8.5 grams fluticasone furoate 100 1 inh inhalation DAILY #90 ea 02/2111/03/24 Rx mcg/actuation blister powder for inhalation (Arnuity Ellipta) irbesartan 300 mg tablet 300 mg PO DAILY #90 tabs 04/30/24 11/03/24 Rx montelukast 10 mg tablet 10 mg PO DAILY #90 tabs 04/30/24 0 11/03/24 Rx nifedipine 60 mg tablet,extended 60 mg PO DAILY #90 tabs 04/30/24 0 11/03/24 Rx release 24 hr rivaroxaban 10 mg tablet (Xarelto) 10 mg PO DAILY #90 tabs 04/30/24 11/03/24 Rx spironolactone 25 mg tablet 25 mg PO DAILY #90 tabs 04/30/24 0 11/03/24 Rx Have you fallen in the past year?: No PFSH Medical History 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 Thyroid nodule Thyroid nodule, uninodular History of pulmonary embolism Hypertension Gallstones Breast lump Bone fracture Asthma Arthritis Seasonal allergies Surgical History History of cataract surgery S/P thyroid biopsy ( 09/2021) History of D C History of right oophorectomy History of cholecystectomy History of appendectomy History of tonsillectomy Family History Mother Asthma Arthritis Hypertension Osteoporosis Grandfather Asthma Sister Breast cancer Father Cancer brain Hypertension Aunt Breast cancer Social History Smoking Status: Never smoker alcohol intake: current alcohol intake frequency: a few times a month Alcohol type: wine substance use type: does not use what type of physical activity do you participate in: walking and weight training frequency: 3-4 times per week HPI HPI HPI: Patient is a 74-year-old female who makes surgical follow-up for thyroid surveillance. Patient is a former patient of Dr. Damian Proctor. Last seen 09/30/2024. She denies any interval health updates but again discusses that she has a lot of drainage that she simply sits deep in her chest and she must cough frequently to clear this drainage. She reports a trial with Mucinex but was unimpressed. She does report using Zyrtec every day for the symptoms. She denies any complaints of hoarseness or swallowing difficulty. She follows up after CT imaging of her neck was completed on 10/23/2024. Below is recapitulated from patient's prior visit for ease of review: Patient is a 74-year-old female who makes surgical follow-up for thyroid surveillance. Patient is a former patient of Dr. Damian Proctor. Last seen 10/15/2023. She states that she began following her thyroid with [facility] physicians approximately starting in 2016. She notes that she has had so many biopsies I can keep track. She denies development of any new cough, hoarseness, shortness of breath, or swallowing difficulty. She does acknowledge a persistent productive cough related to some ongoing drainage that she has had for forever. Additional medical history is reviewed and she states that she has a heart murmur and has been examined with echocardiography but she is unable to detail this further. (more content not included)... Normal [facility] Soft Tissue Neck W/WO Contra ston 10-23-2024 Soft Tissue Neck W/WO Contrast [facility] Services [address] [place], [place] [address] Soft Tissue Neck W/WO Contrast MR#: [id number] Acct: [id number] Name: HILARY RIVAS Rep #: [id number] : 1950 F 74 From: Tobin Almazan MD PCP: Dr. Sd Mitchell MD Status: [facility] Study: Soft Tissue Neck W/WO Contrast Date of Exam: 0 10/23/24 Exam# [id number] Ordering Dr: Riley Mandel MD PROCEDURE: SOFT TISSUE NECK W/WO CONTRAST 10/23/2024 REASON FOR EXAM: MULTINODULAR GOITER TECHNIQUE: SOFT TISSUE NECK W/WO CONTRAST CONTRAST: 75 cc Isovue-300 One or more dose reduction techniques were used (e.g., Automated exposure control, adjustment of the mA and/or kV according to patient size, use of iterative reconstruction technique). FINDINGS: The precontrast images demonstrate no abnormal calcifications in the salivary glands are oral cavity. No airway compromise. Heterogeneous thyroid gland noted. No airway compromise. Contrast-enhanced imaging demonstrate the left lobe of the thyroid gland to extend to the level of the sternal notch but not below. No airway compromise. Tiny nodules within the gland better assessed with ultrasound. The craniocaudal extent of the left lobe is approximately 6 cm with a transverse measurement of 3 cm. No substernal extension on the right. Normal tracheoesophageal groove. CT/Soft Tissue Neck W/WO Contrast IMPRESSION: Extension of the left thyroid lobe to the level of the sternal notch. No luminal airway compromise. No adenopathy. Reading Location: [facility] CC: Dr. Sd Mitchell MD; Dr. Riley Mandel MD Dye Range Tender: Signed Normal [facility] Surgery Visit Reporton 09-30 Surgery Visit Report [facility] [address] [facility] [place] [address] OFFICE VISIT Date of Service: 09/30/24 MR#: [id number] Acct: [id number] Name: HILARY RIVAS Rep #: [id number] : 1950 Provider: Dr. Riley garcía MD Age/Sex: 74/F Location: [facility] Status: Signed Intake Vital Signs 03/05/24 13:37 09/03/24 13:29 09/30/24 13:52 Height 5 ft 4 in 5 ft 4 in 5 ft 4 in Weight: 198 lb 6 oz 199 lb BMI 34.0 34.1 BP 115/74 122/80 H Blood Pressure Location Rt brachial Rt brachial Position Sitting Sitting Respiration 16 17 Pulse 76 89 Pulse Source Monitor Monitor Temp 97.8 F Temp Source Temporal Pulse Oximetry (%) 95 100 Oxygen Delivery Method room air room air Intake Visit Reasons: THYROID RECALL, RC PT Chief Complaint: thyroid recall Is patient in pain?: No Allergies diclofenac Adverse Reaction (Unknown, Verified 09/30/24 13:53) GI upset erythromycin base (Erythromycin Base) Adverse Reaction (Verified 09/30/24 13:53) Upset Stomach hydrochlorothiazide Adverse Reaction (Verified 09/30/24 13:53) Other indapamide Adverse Reaction (Verified 09/30/24 13:53) Other triamterene (From Dyazide) Adverse Reaction (Verified 09/30/24 13:53) Other Medications ???Medication ???Instructions ???Recorded ???Confirmed ???Type cetirizine 10 mg capsule (Zyrtec) 10 mg PO DAILY 09/13/13 09/30/24 History cholecalciferol (vitamin D3) 25 1,000 unit PO DAILY 10/24/2309/30 History mcg (1,000 unit) capsule (Vitamin D3) albuterol sulfate 90 mcg/actuation 2 puff inhalation Q6H PRN 09/30/24 Rx aerosol inhaler shortness of breath or wheezing #8.5 grams fluticasone furoate 100 1 inh inhalation DAILY #90 ea 02/2109/30/24 Rx mcg/actuation blister powder for inhalation (Arnuity Ellipta) irbesartan 300 mg tablet 300 mg PO DAILY #90 tabs 04/30/24 09/30/24 Rx montelukast 10 mg tablet 10 mg PO DAILY #90 tabs 04/30/24 0 09/30/24 Rx nifedipine 60 mg tablet,extended 60 mg PO DAILY #90 tabs 04/30/24 0 09/30/24 Rx release 24 hr rivaroxaban 10 mg tablet (Xarelto) 10 mg PO DAILY #90 tabs 04/30/24 09/30/24 Rx spironolactone 25 mg tablet 25 mg PO DAILY #90 tabs 04/30/24 0 09/30/24 Rx Have you fallen in the past year?: No PFSH Medical History Current use of long-term anticoagulation Thyroid nodule Thyroid nodule, uninodular History of pulmonary embolism Hypertension Gallstones Breast lump Bone fracture Asthma Arthritis Seasonal allergies Surgical History History of cataract surgery S/P thyroid biopsy ( 09/2021) History of D C History of right oophorectomy History of cholecystectomy History of appendectomy History of tonsillectomy Family History (Updated 09/30/24 @ 13:52 by Mindy Davis) Mother Asthma Arthritis Hypertension Osteoporosis Grandfather Asthma Sister Breast cancer Father Cancer brain Hypertension Aunt Breast cancer Social History Smoking Status: Never smoker alcohol intake: current alcohol intake frequency: a few times a month Alcohol type: wine substance use type: does not use what type of physical activity do you participate in: walking and weight training frequency: 3-4 times per week HPI HPI HPI: Patient is a 74-year-old female who makes surgical follow-up for thyroid surveillance. Patient is a former patient of Dr. Damian Proctor. Last seen 10/15/2023. She states that she began following her thyroid with [facility] physicians approximately starting in 2015. She notes that she has had so many biopsies I can keep track. She denies development of any new cough, hoarseness, shortness of breath, or swallowing difficulty. She does acknowledge a persistent productive cough related to some ongoing drainage that she has had for forever. Additional medical history is reviewed and she states that she has a heart murmur and has been examined with echocardiography but she is unable to detail this further. 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 Patient discussed the diagnosis of osteoporosis in broken bones but her last broken bone was a broken arm in 2014 that occurred after significant ground-level fall. Anticipation of today's procedure patient completed interval thyroid ultrasound on 09/22/2024. This found a right thyroid lobe measuring 5.2 x 2.2 x 1.9 cm in the left thyroid lobe measuring 6.9 x 2.5 x 2.9 cm. 3 nodules were described on each side including a left-sided heterogenous solid nodule measuring 4.3 x 2.4 (more content not included)... Normal [facility] Absolute lymphocyte countOrd ered By: Sd Mitchell on 09-24-2024 Lymphocytes Auto (Unsp spec) [#/Vol] 2.28 10*3/uL 0.83-4.51 [facility] Absolute neutrophil countOrd ered By: Sd Mitchell on 09-24-2024 Neutrophils (Bld) [#/Vol] 6.4 10*3/uL 2.0-7.7 [facility] Anion gap in Serum or Plasma Ordered By: Sd Mitchell on 09-24-2024 Anion gap [Moles/Vol] 12 mmol/L 5-15 [facility] Automated lymphocyte count a s percentage of total leukocytesOrdered By: Sd Mitchell on 09-24-2024 Lymphocytes/100 WBC Auto (Unsp spec) 22.5 % 19-41 [facility] BUN/creatinine ratioOrdered By: Sd Mitchell on 09-24-2024 Urea nitrogen/Creatinine [Mass ratio] 20.8 mg/mg High 10-20 [facility] Basophil percentageOrdered B y: Sd Mitchell on 09-24-2024 Basophils/100 WBC (Bld) 0.5 % 0-1 [facility] Bilirubin, totalOrdered By: Sd Mitchell on 09-24-2024 Bilirubin [Mass/Vol] 1.09 mg/dL 0.00-1.30 [facility] CBC W/Diff, Automatedon Absolute Lymph 2.28 X10 3/uL Normal 0.83-4.51 [facility] Comment on above: Performed By: #### L 500.4100, L506.1001, L501.5200, L100.0100, L501.9985, L501.9520, L500.4050 #### [facility] [address] [place], [address] Absolute Neut 6.4 X10 3/uL Normal 2.0-7.7 [facility] Comment on above: Performed By: #### L 500.4100, L506.1001, L501.5200, L100.0100, L501.9985, L501.9520, L500.4050 #### [facility] [address] [place], [address] Basophils/100 WBC (Bld) 0.5 % Normal 0-1 [facility] Comment on above: Performed By: #### L 500.4100, L506.1001, L501.5200, L100.0100, L501.9985, L501.9520, L500.4050 #### [facility] [address] [place], [address] Eosinophils/100 WBC (Bld) 6.4 % High 0-5 [facility] Comment on above: Performed By: #### L 500.4100, L506.1001, L501.5200, L100.0100, L501.9985, L501.9520, L500.4050 #### [facility] [address] [place], [address] Erythrocyte distribution width (RBC) [Ratio] 13.8 % Normal 11.6-14.6 [facility] Comment on above: Performed By: #### L 500.4100, L506.1001, L501.5200, L100.0100, L501.9985, L501.9520, L500.4050 #### [facility] [address] [place], [address] Hematocrit (Bld) [Volume fraction] 44.8 % Normal 37-47 [facility] Comment on above: Performed By: #### L 500.4100, L506.1001, L501.5200, L100.0100, L501.9985, L501.9520, L500.4050 #### [facility] [address] [place], [address] Hemoglobin (Bld) [Mass/Vol] 15.3 g/dL High 12.0-15.0 [facility] Comment on above: Performed By: #### L 500.4100, L506.1001, L501.5200, L100.0100, L501.9985, L501.9520, L500.4050 #### [facility] [address] [place], [address] IG% 0.200 Normal 0.0-0.9 [facility] Comment on above: Result Comment: IG% - Immature Granulocytes (promyelocytes, myelocytes and metamyelocytes) > 1% indicates that a LEFT SHIFT is Present. Performed By: #### L 500.4100, L506.1001, L501.5200, L100.0100, L501.9985, L501.9520, L500.4050 #### [facility] [address] [place], [address] Lymphocytes/100 WBC (Bld) 22.5 % Normal 19-41 [facility] Comment on above: Performed By: #### L 500.4100, L506.1001, L501.5200, L100.0100, L501.9985, L501.9520, L500.4050 #### [facility] [address] [place], [address] MCH (RBC) [Entitic mass] 28.4 pg Normal 27.0-32.0 [facility] Comment on above: Performed By: #### L 500.4100, L506.1001, L501.5200, L100.0100, L501.9985, L501.9520, L500.4050 #### [facility] [address] [place], [address] MCHC (RBC) [Mass/Vol] 34.2 g/dL Normal 32-36 [facility] Comment on above: Performed By: #### L 500.4100, L506.1001, L501.5200, L100.0100, L501.9985, L501.9520, L500.4050 #### [facility] [address] [place], [address] MCV (RBC) [Entitic vol] 83.3 fL Normal 81-99 [facility] Comment on above: Performed By: #### L 500.4100, L506.1001, L501.5200, L100.0100, L501.9985, L501.9520, L500.4050 #### [facility] [address] [place], [address] Monocytes/100 WBC (Bld) 7.2 % Normal 0-10 [facility] Comment on above: Performed By: #### L 500.4100, L506.1001, L501.5200, L100.0100, L501.9985, L501.9520, L500.4050 #### [facility] [address] [place], [address] Neutrophils/100 WBC (Bld) 63.2 % Normal 47-70 [facility] Comment on above: Performed By: #### L 500.4100, L506.1001, L501.5200, L100.0100, L501.9985, L501.9520, L500.4050 #### [facility] [address] [place], [address] Nucleated RBC (Bld) [#/Vol] 0 10*3/uL Normal 0-5 [facility] Comment on above: Performed By: #### L 500.4100, L506.1001, L501.5200, L100.0100, L501.9985, L501.9520, L500.4050 #### [facility] [address] [place], [address] Platelet mean volume (Bld) [Entitic vol] 9.8 fL Normal 6.2-12.0 [facility] Comment on above: Performed By: #### L 500.4100, L506.1001, L501.5200, L100.0100, L501.9985, L501.9520, L500.4050 #### [facility] [address] [place], [address] Platelets (Bld) [#/Vol] 321 10*3/uL Normal 150-450 [facility] Comment on above: Performed By: #### L 500.4100, L506.1001, L501.5200, L100.0100, L501.9985, L501.9520, L500.4050 #### [facility] [address] [place], [address] RBC (Bld) [#/Vol] 5.38 10*6/uL Normal 4.2-5.4 [facility] Comment on above: Performed By: #### L 500.4100, L506.1001, L501.5200, L100.0100, L501.9985, L501.9520, L500.4050 #### [facility] [address] [place], [address] RDW SD 41.6 fl Normal 35.1-43.9 [facility] Comment on above: Performed By: #### L 500.4100, L506.1001, L501.5200, L100.0100, L501.9985, L501.9520, L500.4050 #### [facility] [address] [place], [address] WBC (Bld) [#/Vol] 10.1 10*3/uL Normal 4.4-11.0 [facility] Comment on above: Performed By: #### L 500.4100, L506.1001, L501.5200, L100.0100, L501.9985, L501.9520, L500.4050 #### [facility] [address] [place], [address] Calculated very low density lipoprotein (VLDL) cholesterol measurementOrdered By: Sd Mitchell on 09-24-2024 Calculated very low density lipoprotein (VLDL) cholesterol measurement 51 mg/dL High 5-40 [facility] Carbon dioxide, total [Moles /volume] in Central venous bloodOrdered By: Sd Mitchell on 09-24-2024 CO2 [Moles/Vol] 21.9 mmol/L 21.0-32.0 [facility] Chloride assayOrdered By: Kalyani Mitchell on 09-24-2024 Chloride [Moles/Vol] 105 mmol/L 98-108 [facility] Comprehensive Metabolic Prof ilon 09-24-2024 Albumin [Mass/Vol] 4.2 g/dL Normal 3.4-4.8 [facility] Comment on above: Performed By: #### L 500.4100, L506.1001, L501.5200, L100.0100, L501.9985, L501.9520, L500.4050 #### [facility] [address] [place], [address] Albumin/Globulin [Mass ratio] 1.2 {ratio} Normal 0.9-2.4 [facility] Comment on above: Performed By: #### L 500.4100, L506.1001, L501.5200, L100.0100, L501.9985, L501.9520, L500.4050 #### [facility] [address] [place], [address] ALK PHOS 117 U/L High 35-104 [facility] Comment on above: Performed By: #### L 500.4100, L506.1001, L501.5200, L100.0100, L501.9985, L501.9520, L500.4050 #### [facility] [address] [place], [address] ALT [Catalytic activity/Vol] 20 U/L Normal <=34 [facility] Comment on above: Performed By: #### L 500.4100, L506.1001, L501.5200, L100.0100, L501.9985, L501.9520, L500.4050 #### [facility] [address] [place], [address] AST [Catalytic activity/Vol] 22 U/L Normal <=31 [facility] Comment on above: Performed By: #### L 500.4100, L506.1001, L501.5200, L100.0100, L501.9985, L501.9520, L500.4050 #### [facility] [address] [place], [address] Bilirubin [Mass/Vol] 1.09 mg/dL Normal 0.00-1.30 [facility] Comment on above: Performed By: #### L 500.4100, L506.1001, L501.5200, L100.0100, L501.9985, L501.9520, L500.4050 #### [facility] [address] [place], [address] BUN/CRE 20.8 RATIO High 10-20 [facility] Comment on above: Performed By: #### L 500.4100, L506.1001, L501.5200, L100.0100, L501.9985, L501.9520, L500.4050 #### [facility] [address] [place], [address] Calcium [Mass/Vol] 9.6 mg/dL Normal 7.6-11.0 [facility] Comment on above: Performed By: #### L 500.4100, L506.1001, L501.5200, L100.0100, L501.9985, L501.9520, L500.4050 #### [facility] [address] [place], [address] Chloride [Moles/Vol] 105 mmol/L Normal 98-108 [facility] Comment on above: Performed By: #### L 500.4100, L506.1001, L501.5200, L100.0100, L501.9985, L501.9520, L500.4050 #### [facility] [address] [place], [address] CO2 [Moles/Vol] 21.9 mmol/L Normal 21.0-32.0 [facility] Comment on above: Performed By: #### L 500.4100, L506.1001, L501.5200, L100.0100, L501.9985, L501.9520, L500.4050 #### [facility] [address] [place], [address] Creatinine [Mass/Vol] 0.71 mg/dL Normal 0.70-1.20 [facility] Comment on above: Performed By: #### L 500.4100, L506.1001, L501.5200, L100.0100, L501.9985, L501.9520, L500.4050 #### [facility] [address] [place], [address] GAP 12 Normal 5-15 [facility] Comment on above: Performed By: #### L 500.4100, L506.1001, L501.5200, L100.0100, L501.9985, L501.9520, L500.4050 #### [facility] [address] [place], [address] GFR/1.73 sq M.predicted among non-blacks MDRD (S/P/Bld) [Vol rate/Area] 88 mL/min/{1.73_m2} Normal >60 [facility] Comment on above: Result Comment: mL/m in/1.73m2 CKD-EPI Creatinine Equation (2020) Performed By: #### L 500.4100, L506.1001, L501.5200, L100.0100, L501.9985, L501.9520, L500.4050 #### [facility] [address] [place], [address] Globulin (S) [Mass/Vol] 3.4 g/dL Normal 2.2-4.2 [facility] Comment on above: Performed By: #### L 500.4100, L506.1001, L501.5200, L100.0100, L501.9985, L501.9520, L500.4050 #### [facility] [address] [place], [address] Glucose [Mass/Vol] 90 mg/dL Normal 70-99 [facility] Comment on above: Performed By: #### L 500.4100, L506.1001, L501.5200, L100.0100, L501.9985, L501.9520, L500.4050 #### [facility] [address] [place], [address] Potassium [Moles/Vol] 4.2 mmol/L Normal 3.3-5.1 [facility] Comment on above: Performed By: #### L 500.4100, L506.1001, L501.5200, L100.0100, L501.9985, L501.9520, L500.4050 #### [facility] [address] [place], [address] Sodium [Moles/Vol] 138 mmol/L Normal 133-145 [facility] Comment on above: Performed By: #### L 500.4100, L506.1001, L501.5200, L100.0100, L501.9985, L501.9520, L500.4050 #### [facility] [address] [place], [address] T PROT 7.6 g/dL Normal 5.9-8.4 [facility] Comment on above: Performed By: #### L 500.4100, L506.1001, L501.5200, L100.0100, L501.9985, L501.9520, L500.4050 #### [facility] [address] [place], [address] Urea nitrogen [Mass/Vol] 15 mg/dL Normal 4-19 [facility] Comment on above: Performed By: #### L 500.4100, L506.1001, L501.5200, L100.0100, L501.9985, L501.9520, L500.4050 #### [facility] [address] [place], [place], [address] Eosinophil percentageOrdered By: Sd Mitchell on 09-24-2024 Eosinophils/100 WBC (Bld) 6.4 % High 0-5 [facility] Erythrocyte distribution wid th ratioOrdered By: Sd Mitchell on 09-24-2024 Erythrocyte distribution width (RBC) [Ratio] 13.8 % 11.6-14.6 [facility] Erythrocyte distribution wid th standard deviationOrdered By: [facility] on 09-24-2024 Erythrocyte distribution width (RBC) [Ratio] 41.6 fl 35.1-43.9 [facility] Glomerular filtration rate ( GFR) estimation/1.73 sq m using serum, plasma, or whole bOrdered By: Sd Mitchell on 09-24-2024 GFR/1.73 sq M.predicted among non-blacks MDRD (S/P/Bld) [Vol rate/Area] 88 mL/min/{1.73_m2} >60 [facility] Comment on above: mL/min/1.73m2 CKD-EP I Creatinine Equation (2020) Hematocrit Auto (Bld) [Volum e fraction]Ordered By: Sd Mitchell on 09-24-2024 Hematocrit (Bld) [Volume fraction] 44.8 % 37-47 [facility] Hemoglobin A1con 09-24-2024 HbA1c (Bld) [Mass fraction] 5.2 % Normal <=5.6 [facility] Comment on above: Result Comment: Norm al < 5.7 % Prediabetic 5.7 - 6.4 % Diabetic >or= 6.5 % Please note range changes. Performed By: #### L 500.4100, L506.1001, L501.5200, L100.0100, L501.9985, L501.9520, L500.4050 #### [facility] [address] [place], [place], [address] Hemoglobin A1c percentageOrd ered By: Sd Mitchell on 09-24-2024 HbA1c (Bld) [Mass fraction] 5.2 % <5.7 [facility] Comment on above: Normal < 5.7 % Predi abetic 5.7 - 6.4 % Diabetic >or= 6.5 % Please note range changes. Hemoglobin measurementOrdere d By: Sd Mitchell on 09-24-2024 Hemoglobin (Bld) [Mass/Vol] 15.3 g/dL High 12.0-15.0 [facility] Immature granulocytes/100 WB C Auto (Bld)Ordered By: Sd Mitchell on 09-24-2024 Immature granulocytes/100 WBC (Bld) 0.200 % 0.0-0.9 [facility] Comment on above: IG% - Immature Granu locytes (promyelocytes, myelocytes and metamyelocytes) > 1% indicates that a LEFT SHIFT is Present. LDL calc ser/plasOrdered By: Sd Mitchell on 09-24-2024 Cholesterol in LDL [Mass/Vol] 121 mg/dL [facility] Comment on above: Euxkmkrvgs=977-625 m g/dL & Higher Sbrl=584 mg/dL or greater Laboratory - Chemistry and C hemistry - challengeOrdered By: Sd Mitchell on 09-24-2024 AST [Catalytic activity/Vol] 22 U/L <32 [facility] Lipid Profileon 09-24-2024 CHOL:HDL 5.23 Normal [facility] Comment on above: Performed By: #### L 500.4100, L506.1001, L501.5200, L100.0100, L501.9985, L501.9520, L500.4050 #### [facility] [address] [place], [address] Cholesterol [Mass/Vol] 212 mg/dL High <=200 [facility] Comment on above: Result Comment: Chol esterol level, Desirable <200 mg/dL Borderline high cholesterol 200-239 mg/dL High cholesterol >=240 mg/dL Recommendations of the NCEP Adult Treatment Panel for the following risk-cutoff thresholds for the [place] population. Performed By: #### L 500.4100, L506.1001, L501.5200, L100.0100, L501.9985, L501.9520, L500.4050 #### [facility] [address] [place], [address] Cholesterol in HDL [Mass/Vol] 41 mg/dL Normal [facility] Comment on above: Result Comment: Krystin onal Cholesterol Education Program (NCEP) guidelines: <40 mg/dL: Low HDL-cholesterol (major risk factor for CHD) >= 60 mg/dL: High HDL-cholesterol (negative risk factor for CHD) HDL-cholesterol is affected by a number of factors, e.g. smoking, exercise, hormones, sex and age. Performed By: #### L 500.4100, L506.1001, L501.5200, L100.0100, L501.9985, L501.9520, L500.4050 #### [facility] [address] [place] [place], [address] Cholesterol in LDL [Mass/Vol] 121 mg/dL Normal [facility] Comment on above: Result Comment: Bord dolahw=447-483 mg/dL Higher Eqdp=095 mg/dL or greater Performed By: #### L 500.4100, L506.1001, L501.5200, L100.0100, L501.9985, L501.9520, L500.4050 #### [facility] [address] [place], [address] Cholesterol in VLDL [Mass/Vol] 51 mg/dL High 5-40 [facility] Comment on above: Performed By: #### L 500.4100, L506.1001, L501.5200, L100.0100, L501.9985, L501.9520, L500.4050 #### [facility] [address] [place], [address] Triglyceride [Mass/Vol] 253 mg/dL High [facility] Comment on above: Result Comment: The drugs N-Acetylcysteine and Metamizole may falsely depress this assay. Normal range: <150 mg/dL Borderline High: 150-199 mg/dL High: 200-499 mg/dL Very High: >500 mg/dL Performed By: #### L 500.4100, L506.1001, L501.5200, L100.0100, L501.9985, L501.9520, L500.4050 #### [facility] [address] [place], [address] MCV (mean corpuscular volume ) determinationOrdered By: Sd Mitchell on 09-24-2024 MCV (RBC) [Entitic vol] 83.3 fL 81-99 [facility] Magnesiumon 09-24-2024 Magnesium [Mass/Vol] 2.3 mg/dL High 1.5-2.2 [facility] Comment on above: Performed By: #### L 500.4100, L506.1001, L501.5200, L100.0100, L501.9985, L501.9520, L500.4050 #### [facility] [address] [place], [place], [id number] Magnesium measurement (mass/ volume)Ordered By: Sd Mitchell on 09-24-2024 Magnesium (Unsp spec) [Mass/Vol] 2.3 mg/dL High 1.5-2.2 [facility] Mean corpuscular hemoglobin (MCH) determinationOrdered By: Sd Mitchell on 09-24-2024 MCH (RBC) [Entitic mass] 28.4 pg 27.0-32.0 [facility] Mean corpuscular hemoglobin concentration (MCHC) determinationOrdered By: Sd Mitchell on 09-24-2024 MCHC (RBC) [Mass/Vol] 34.2 g/dL 32-36 [facility] Mean platelet volume determi nationOrdered By: Sd Mitchell on 09-24-2024 Platelet mean volume (Bld) [Entitic vol] 9.8 fL 6.2-12.0 [facility] Monocyte percentageOrdered B y: Sd Mitchell on 09-24-2024 Monocytes/100 WBC (Bld) 7.2 % 0-10 [facility] Neutrophil percentageOrdered By: Sd Mitchell on 09-24-2024 Neutrophils/100 WBC (Bld) 63.2 % 47-70 [facility] Nucleated red blood cell per centageOrdered By: Sd Mitchell on 09-24-2024 Nucleated RBC/100 WBC (Bld) [Ratio] 0 % 0-5 [facility] Platelet countOrdered By: Kalyani Mitchell on 09-24-2024 Platelets (Bld) [#/Vol] 321 10*3/uL 150-450 [facility] Potassium measurement (mass/ volume)Ordered By: Sd Mitchell on 09-24-2024 Potassium (Unsp spec) [Mass/Vol] 4.2 mmol/L 3.3-5.1 [facility] RBC Auto (Bld) [#/Vol]Ordere d By: Sd Mitchell on 09-24-2024 RBC (Bld) [#/Vol] 5.38 10*6/uL 4.2-5.4 [facility] Screening total cholesterol/ high density lipoprotein (HDL) cholesterol ratioOrdered By: Sd Mitchell on 09-24-2024 Cholesterol.total/Choles terol in HDL [Mass ratio] 5.23 {ratio} [facility] Serum creatinine measurement (mass/volume)Ordered By: Sd Mitchell on 09-24-2024 Creatinine [Mass/Vol] 0.71 mg/dL 0.70-1.20 [facility] Serum globulin measurementOr dered By: Sd Mitchell on 09-24-2024 Globulin (S) [Mass/Vol] 3.4 g/dL 2.2-4.2 [facility] Serum glucose measurement (m ass/volume)Ordered By: Sd Mitchell on 09-24-2024 Glucose [Mass/Vol] 90 mg/dL 70-99 [facility] Serum or plasma alanine kim otransferase (ALT) measurementOrdered By: Sd Mitchell on 09-24-2024 ALT [Catalytic activity/Vol] 20 U/L <35 [facility] Serum or plasma albumin north urement (mass/volume)Ordered By: Sd Mitchell on 09-24-2024 Albumin [Mass/Vol] 4.2 g/dL 3.4-4.8 [facility] Serum or plasma albumin/glob ulin mass ratioOrdered By: Sd Mitchell on 09-24-2024 Albumin/Globulin [Mass ratio] 1.2 {ratio} 0.9-2.4 [facility] Serum or plasma alkaline emerson sphatase measurementOrdered By: Sd Mitchell on 09-24-2024 ALP [Catalytic activity/Vol] 117 U/L High 35-104 [facility] Serum or plasma calcium north urement (mass/volume)Ordered By: Sd Mitchell on 09-24-2024 Calcium [Mass/Vol] 9.6 mg/dL 7.6-11.0 [facility] Serum or plasma cholesterol in HDL measurement (mass/volume)Ordered By: Sd Mitchell on 09-24-2024 Cholesterol in HDL [Mass/Vol] 41 mg/dL >40 [facility] Comment on above: National Cholesterol Education Program (NCEP) guidelines:<40 mg/dL: Low HDL-cholesterol (major risk factor for CHD)>= 60 mg/dL: High HDL-cholesterol (negative risk factor for CHD)HDL-cholesterol is affected by a number of factors, e.g. smoking, exercise, hormones, sex and age. Serum or plasma cholesterol measurement (mass/volume)Ordered By: Sd Mitchell on 09-24-2024 Cholesterol [Mass/Vol] 212 mg/dL High <201 [facility] Comment on above: Cholesterol level, D esirable <200 mg/dLBorderline high cholesterol 200-239 mg/dLHigh cholesterol >=240 mg/dLRecommendations of the NCEP Adult Treatment Panel for the following risk-cutoff thresholds for the [place] population. Serum or plasma urea nitroge n measurement (mass/volume)Ordered By: Sd Mitchell on 09-24-2024 Urea nitrogen [Mass/Vol] 15 mg/dL 4-19 [facility] Sodium levelOrdered By: Jyoti Mitchell on 09-24-2024 Sodium [Moles/Vol] 138 mmol/L 133-145 [facility] TSH DL <= 0.005 mIU/L QnOrde red By: Sd Mitchell on 09-24-2024 TSH Qn 1.620 uIU/mL 0.300-4.200 [facility] Thyroid Stim Hormone (TSH)on 09-24-2024 TSH 1.620 uIU/mL Normal 0.300-4.200 [facility] Comment on above: Performed By: #### L 500.4100, L506.1001, L501.5200, L100.0100, L501.9985, L501.9520, L500.4050 ####[facility] [address] [place], [place], [id number] Total proteinOrdered By: Julissa Mitchell on 09-24-2024 Protein [Mass/Vol] 7.6 g/dL 5.9-8.4 [facility] Triglycerides measurementOrd ered By: Sd Mitchell on 09-24-2024 Triglyceride [Mass/Vol] 253 mg/dL High <199 [facility] Comment on above: The drugs N-Acetylcy steine and Metamizole may falsely depress this assay. Normal range: <150 mg/dLBorderline High: 150-199 mg/dLHigh: 200-499 mg/dLVery High: >500 mg/dL Vitamin D,25 Hydroxyon 09-24 Vitamin D 25-OH 23.9 ng/mL Low 30-100 [facility] Comment on above: Result Comment: Zuleika min D Status Deficiency: <20 ng/mL (50nmol/L) Insufficiency: 20-30 ng/mL (50-75 nmol/L) Sufficiency: 30-100 ng/mL (75-250 nmol/L) Toxicity: >100 ng/mL (>250 nmol/L) Performed By: #### L 500.4100, L506.1001, L501.5200, L100.0100, L501.9985, L501.9520, L500.4050 ####[facility] [address] [place], [place], [id number] White blood cell (WBC) count Ordered By: Sd Mitchell on 09-24-2024 WBC (Bld) [#/Vol] 10.1 10*3/uL 4.4-11.0 [facility] Thyroidon 09-22-2024 Thyroid [facility] [address] [place] [id number] Thyroid MR#: [id number] Acct: [id number] Name: HILARY RIVAS Rep #: [id number] : 1950 F 74 From: Giuseppe regalado MD PCP: Dr. Sd Mitchell MD Status: REG CLI Study: Thyroid Date of Exam: 09/22/24 Exam# [id number] Ordering Dr: Riley Mandel MD PROCEDURE: THYROID 09/22/2024 REASON FOR EXAM: THYROID NODULE TECHNIQUE: High-frequency thyroid ultrasound, including grayscale and color-flow images. REFERENCE LINKS: TI-RADS Chart: [email or web address]-[email or web address] TI-RADS Calculator Tool with Reference Images: [email or web address] s/body-imaging/[email or web address] -[email or web address]/ COMPARISON: 10/02/2023 FINDINGS: Right thyroid lobe size: [...] no more than 2 nodules. Reading Location: [place] [address] CC: Dr. Sd Mitchell MD; Dr. Riley Mandel MD Dye Range Tender: Signed Normal [facility] MR/BMS.IMBon 09-03-2024 MR/BMS.IMB [facility] [address] [place] [address] OFFICE VISIT Date of Service: 09/03/24 MR#: [id number] Acct: [id number] Name: HILARY RIVAS Rep #: [id number] : 1950 Provider: Dr. Sd stanton MD Age/Sex: 74/F Location: [facility] Status: Signed Intake Vital Signs 03/05/24 13:37 [...] M FU Chief Complaint: 6 M FU Consulting Database Administrator Required: No Accompanied by: Self Is patient [...] No PFSH Medical History Current use of long-term anticoagulation Thyroid nodule Thyroid nodule, uninodular History [...] and Silver sneakers throughout the year at [employer]. Review of systems per chart. Physical exam. [...] gallop is (more content not included)... Normal [facility] Urgent Care Visit Reporton 0 05-30-2024 Urgent Care Visit Report [facility] [address], [address] [place] [address] OFFICE VISIT Date of Service: 05/30/24 MR#: [id number] Acct: [id number] Name: HILARY RIVAS Rep #: [id number] : 1950 Provider: MAGALY Velazquez Age/Sex: 74/F Location: [facility] Status: Signed Intake Vital Signs 03/05/24 13:37 [...] Reasons: Cough Chief Complaint: cough, drainage, ST Consulting Database Administrator Required: No Is patient in pain?: No [...] fever PFSH Medical History Current use of long-term anticoagulation Thyroid nodule Thyroid nodule, uninodular History [...] or smell. No other associated symptoms or alleviating/aggravati ng factors. ROS Const Constitutional: No other (6 system ROS completed with pertinent findings in the HPI otherwise normal.) Exam Const General: cooperative and well developed HENMT Head: normal to inspection and atraumatic Ears: [...] the past year?: No 05/30/24 1222 Date (more content not included)... Normal [facility] KATHARINE SCREENING W Lazaro 03-18 KATHARINE SCREENING W JANET * * *Final Report* * * DATE OF EXAM: Mar 18 2024 1:31PM [facility] [id number] - KATHARINE SCREENING W JANET / PROCEDURE REASON: Screening Mammogram * * * * Physician Interpretation * * * * RESULT: [place] [address] [place] [address] #[id number] - KATHARINE SCREENING W JANET HISTORY: Patient is 74 [...] Naman Valdez M.D. Electronically signed on: 03/19/2024 Dye Range Tender: RIVER Transcribe Date/Time: Mar 18 2024 1:00P Dictated by: NAMAN VALDEZ MD This examination was interpreted and the report reviewed and electronically signed by: NAMAN VALDEZ MD on Mar 19 2024 3:38PM EST [id number] N Normal [facility] MR/BMS.NIKIABon 03-05-2024 MR/BMS.RADHA [facility] [address] [place] [address] OFFICE VISIT Date of Service: 03/05/24 MR#: [id number] Acct: [id number] Name: HILARY RIVAS Rep #: [id number] : 1950 Provider: Dr. Sd stanton MD Age/Sex: 74/F Location: [facility] Status: Signed Intake Vital Signs [...] M FU Chief Complaint: 6 m fu Consulting Database Administrator Required: No Accompanied by: Self Is patient [...] you fallen in the past year?: No [facility] Medical History Current use of long-term anticoagulation Thyroid nodule Thyroid nodule, uninodular History [...] and the last one had been at [facility] where she had prior primary care. Her previous OB is gone at this point. I did submit order, print it for her to take to [facility] for mammogram. She is agreeable at this point. She relatively recently, had bilateral cataracts removed, and is done actually quite well she feels. She does wear readers but is very overall happy with her status that way. Physical exam. Vital signs on chart. PERRLA. Sclera are clear. TMs are unremarkable with normal light reflexes. Canals are unr (more content not included)... Normal [facility] Absolute lymphocyte countOrd ered By: Sd Mitchell on 02-14-2023 Lymphocytes Auto (Unsp spec) [#/Vol] 2.05 10*3/uL 0.83-4.51 [facility] Basophil percentageOrdered B y: Sd Mitchell on 02-14-2023 Basophils/100 WBC (Bld) 0.4 % 0-1 [facility] Bilirubin [Mass/Vol] 1.30 mg/dL 0.20-1.00 [facility] Comment on above: For patients on eltr ombopag therapy, use of Dimension [place] TBIL is not recommended. Chloride [Moles/Vol] 108 mmol/L 98-107 [facility] Cholesterol [Mass/Vol] 195 mg/dL <200 [facility] Comment on above: <200 mg/dL Desirable 200-240 mg/dL Borderline >240 mg/dL High Risk Eosinophils/100 WBC (Bld) 7.5 % 0-5 [facility] Glucose [Mass/Vol] 104 mg/dL 74-106 [facility] Comment on above: Fasting Glucose resu lt from 100 to 125 mg/dL suggests IMPAIRED HOMEOSTASIS per A.D.A. criteria. Neutrophils (Bld) [#/Vol] 6.0 10*3/uL 2.0-7.7 [facility] Neutrophils/100 WBC (Bld) 63.7 % 47-70 [facility] Potassium [Moles/Vol] 4.1 mmol/L 3.5-5.1 [facility] Protein [Mass/Vol] 7.6 g/dL 6.4-8.2 [facility] Sodium [Moles/Vol] 139 mmol/L 136-145 [facility] Triglyceride [Mass/Vol] 213 mg/dL <199 [facility] Comment on above: The drugs N-Acetylcy steine and Metamizole may falsely depress this assay.Serum Triglycerides Reference Interval Normal <150 mg/dL Borderline high 150 - 199 mg/dL High 200 - 499 mg/dL Very High > or = 500 mg/dL WBC (Bld) [#/Vol] 9.4 10*3/uL 4.4-11.0 [facility] Blood erythrocytes count (nu mber/volume)Ordered By: Sd Mitchell on 02-14-2023 RBC (Bld) [#/Vol] 5.30 10*6/uL 4.2-5.4 [facility] Blood hemoglobin measurement (mass/volume)Ordered By: Sd Mitchell on 02-14-2023 Hemoglobin (Bld) [Mass/Vol] 15.1 g/dL 12.0-15.0 [facility] Blood lymphocytes/100 leukoc ytesOrdered By: Sd Mitchell on 02-14-2023 Lymphocytes/100 WBC (Bld) 21.9 % 19-41 [facility] Blood monocytes/100 leukocyt esOrdered By: Sd Mitchell on 02-14-2023 Monocytes/100 WBC (Bld) 6.3 % 0-10 [facility] Blood platelet mean volumeOr dered By: Sd Mitchell on 02-14-2023 Platelet mean volume (Bld) [Entitic vol] 10.0 fL 6.2-12.0 [facility] Determination of erythrocyte mean corpuscular volume (MCV)Ordered By: Sd Mitchell on 02-14-2023 MCV (RBC) [Entitic vol] 84.2 fL 81-99 [facility] Hematocrit Auto (Bld) [Volum e fraction]Ordered By: Sd Mitchell on 02-14-2023 Hematocrit (Bld) [Volume fraction] 44.6 % 37-47 [facility] - Chemistry and C hemistry - challengeOrdered By: Sd Mitchell on 02-14-2023 ALP [Catalytic activity/Vol] 119 U/L 45-117 [facility] ALT [Catalytic activity/Vol] 34 U/L 13-56 [facility] CO2 [Moles/Vol] 26.0 mmol/L 21.0-32.0 [facility] Globulin (S) [Mass/Vol] 3.9 g/dL 2.2-4.2 [facility] Urea nitrogen/Creatinine [Mass ratio] 17.4 mg/mg 10-20 [facility] - Hematology and Cell countsOrdered By: Sd Mitchell on 02-14-2023 Erythrocyte distribution width (RBC) [Entitic vol] 42.9 fL 35.1-43.9 [facility] Erythrocyte distribution width (RBC) [Ratio] 14.1 % 11.6-14.6 [facility] Immature granulocytes/100 WBC (Bld) 0.200 % 0.0-0.9 [facility] Comment on above: IG% - Immature Granu locytes (promyelocytes, myelocytes and metamyelocytes) > 1% indicates that a LEFT SHIFT is Present. MCH (RBC) [Entitic mass] 28.5 pg 27.0-32.0 [facility] Nucleated RBC/100 WBC (Bld) [Ratio] 0 % 0-5 [facility] MCHC Auto (RBC) [Mass/Vol]Or dered By: Sd Mitchell on 02-14-2023 MCHC (RBC) [Mass/Vol] 33.9 g/dL 32-36 [facility] No Panel InformationOrdered By: Sd Mitchell on 02-14-2023 Estimated GFR (MDRD) Amer 107 mL/min >60 [facility] Comment on above: GFR Calc Estimated GFR (MDRD) Non-Af Amer 89 mL/min >60 [facility] Comment on above: Non- GFR Calc Thyroid Stimulating Hormone (TSH) 1.16 uIU/mL 0.358-3.74 [facility] Vitamin D 25-Hydroxy 27.2 ng/mL [facility] Comment on above: Vitamin D 25(OH) Sta tus Range Deficiency <20 ng/mL (50nmol/L) Insufficiency 20 - 30 ng/mL (50 - 75 nmol/L) Sufficiency 30 - 100 ng/mL (75 - 250 nmol/L) Toxicity >100 ng/mL (>250 nmol/L) Platelets bldOrdered By: Julissa Mitchell on 02-14-2023 Platelets (Bld) [#/Vol] 311 10*3/uL 150-450 [facility] Serum or plasma albumin north urement (mass/volume)Ordered By: Sd Mitchell on 02-14-2023 Albumin [Mass/Vol] 3.7 g/dL 3.2-5.0 [facility] Serum or plasma albumin/glob ulin mass ratioOrdered By: Sd Mitchell on 02-14-2023 Albumin/Globulin [Mass ratio] 0.9 {ratio} 0.9-2.4 [facility] Serum or plasma calcium north urement (mass/volume)Ordered By: Sd Mitchell on 02-14-2023 Calcium [Mass/Vol] 9.0 mg/dL 8.5-10.1 [facility] Serum or plasma cholesterol in HDL measurement (mass/volume)Ordered By: Sd Mitchell on 02-14-2023 Cholesterol in HDL [Mass/Vol] 43 mg/dL >40 [facility] Comment on above: The drugs N-Acetylcy steine and Metamizole may falsely depress this assay. Reference Range HDL <40 mg/dL Low HDL Cholesterol HDL >or= 60 mg/dL High HDL Cholesterol Serum or plasma cholesterol in VLDL measurement (mass/volume)Ordered By: Sd Mitchell on 02-14-2023 Cholesterol in VLDL [Mass/Vol] 43 mg/dL 5-40 [facility] Serum or plasma creatinine m easurement (mass/volume)Ordered By: Sd Mitchell on 02-14-2023 Creatinine [Mass/Vol] 0.69 mg/dL 0.55-1.02 [facility] Comment on above: The validity of the calculated GFR & GFRAA in patients over 70 years has not been determined. Clinical correlation is essential. Serum or plasma low density lipoprotein (LDL) cholesterol measurement (mass/volume)Ordered By: Sd Mitchell on 02-14-2023 Cholesterol in LDL [Mass/Vol] 109 mg/dL 0-130 [facility] Serum or plasma urea nitroge n measurement (mass/volume)Ordered By: Sd Mitchell on 02-14-2023 Urea nitrogen [Mass/Vol] 12 mg/dL 7-18 [facility] Thin prep Papanicolaou smear with manual screeningOrdered By: Sd Mitchell on 02-14-2023 Thin prep Papanicolaou smear with manual screening 21 U/L 15-37 [facility] Thin prep Papanicolaou smear with manual screening 5 5-15 [facility] Absolute lymphocyte counton 03-13-2022 Lymphocytes Auto (Unsp spec) [#/Vol] 2.31 10*3/uL 0.83-4.51 [facility] Work Phone: Basophil percentageon 2021 Basophils/100 WBC (Bld) 0.4 % 0-1 [facility] Work Phone: Bilirubin [Mass/Vol] 1.60 mg/dL 0.20-1.00 [facility] Work Phone: Comment on above: For patients on eltr ombopag therapy, use of Dimension [place] TBIL is not recommended. Chloride [Moles/Vol] 109 mmol/L 98-107 [facility] Work Phone: Cholesterol [Mass/Vol] 210 mg/dL <200 [facility] Work Phone: Comment on above: <200 mg/dL Desirable 200-240 mg/dL Borderline >240 mg/dL High Risk Eosinophils/100 WBC (Bld) 6.7 % 0-5 [facility] Work Phone: Glucose [Mass/Vol] 88 mg/dL 74-106 [facility] Work Phone: Neutrophils (Bld) [#/Vol] 5.6 10*3/uL 2.0-7.7 [facility] Work Phone: Neutrophils/100 WBC (Bld) 61.0 % 47-70 [facility] Work Phone: [phone] Potassium [Moles/Vol] 4.5 mmol/L 3.5-5.1 [facility] Work Phone: Comment on above: Moderate Hemolysis, Result may be falsely increased. Protein [Mass/Vol] 8.1 g/dL 6.4-8.2 [facility] Work Phone: [phone] Sodium [Moles/Vol] 139 mmol/L 136-145 [facility] Work Phone: [phone] Triglyceride [Mass/Vol] 235 mg/dL <199 [facility] Work Phone: [phone] Comment on above: The drugs N-Acetylcy steine and Metamizole may falsely depress this assay.Serum Triglycerides Reference Interval Normal <150 mg/dL Borderline high 150 - 199 mg/dL High 200 - 499 mg/dL Very High > or = 500 mg/dL WBC (Bld) [#/Vol] 9.3 10*3/uL 4.4-11.0 [facility] Work Phone: [phone] Blood erythrocytes count (nu mber/volume)on 03-13-2022 RBC (Bld) [#/Vol] 5.44 10*6/uL 4.2-5.4 [facility] Work Phone: Blood hemoglobin measurement (mass/volume)on 03-13-2022 Hemoglobin (Bld) [Mass/Vol] 15.5 g/dL 12.0-15.0 [facility] Work Phone: Blood lymphocytes/100 leukoc yteson 03-13-2022 Lymphocytes/100 WBC (Bld) 24.9 % 19-41 [facility] Work Phone: Blood monocytes/100 leukocyt eson 03-13-2022 Monocytes/100 WBC (Bld) 6.8 % 0-10 [facility] Work Phone: [phone] Blood platelet mean volumeon 03-13-2022 Platelet mean volume (Bld) [Entitic vol] 10.3 fL 6.2-12.0 [facility] Work Phone: [phone] Determination of erythrocyte mean corpuscular volume (MCV)on 03-13-2022 MCV (RBC) [Entitic vol] 84.6 fL 81-99 [facility] Work Phone: [phone] Hematocrit Auto (Bld) [Volum e fraction]on 03-13-2022 Hematocrit (Bld) [Volume fraction] 46.0 % 37-47 [facility] Work Phone: Laboratory - Chemistry and C hemistry - challengeon 03-13-2022 ALP [Catalytic activity/Vol] 116 U/L 45-117 [facility] Work Phone: [phone] ALT [Catalytic activity/Vol] 32 U/L 13-56 [facility] Work Phone: [phone] CO2 [Moles/Vol] 22.0 mmol/L 21.0-32.0 [facility] Work Phone: Globulin (S) [Mass/Vol] 4.2 g/dL 2.2-4.2 [facility] Work Phone: [phone] Urea nitrogen/Creatinine [Mass ratio] 19.0 mg/mg 10-20 [facility] Work Phone: [phone] Laboratory - Hematology and Cell countson 03-13-2022 Erythrocyte distribution width (RBC) [Entitic vol] 42.5 fL 35.1-43.9 [facility] Work Phone: [phone] Erythrocyte distribution width (RBC) [Ratio] 13.9 % 11.6-14.6 [facility] [facility] Work Phone: [phone] Immature granulocytes/100 WBC (Bld) 0.200 % 0.0-0.9 [facility] Work Phone: Comment on above: IG% - Immature Granu locytes (promyelocytes, myelocytes and metamyelocytes) > 1% indicates that a LEFT SHIFT is Present. MCH (RBC) [Entitic mass] 28.5 pg 27.0-32.0 [facility] Work Phone: [phone] Nucleated RBC/100 WBC (Bld) [Ratio] 0 % 0-5 [facility] Work Phone: [phone] MCHC Auto (RBC) [Mass/Vol]on 03-13-2022 MCHC (RBC) [Mass/Vol] 33.7 g/dL 32-36 [facility] Work Phone: [phone] Panel Informationon 03-13 Estimated GFR (MDRD) Amer 100 mL/min >60 [facility] Work Phone: [phone] Comment on above: GFR Calc Estimated GFR (MDRD) Non-Af Amer 82 mL/min >60 [facility] Work Phone: [phone] Comment on above: Non- GFR Calc Thyroid Stimulating Hormone (TSH) 1.52 uIU/mL 0.358-3.74 [facility] Work Phone: [phone] Vitamin D 25-Hydroxy 30.1 ng/mL [facility] Work Phone: [phone] Comment on above: Vitamin D 25(OH) Sta tus Range Deficiency <20 ng/mL (50nmol/L) Insufficiency 20 - 30 ng/mL (50 - 75 nmol/L) Sufficiency 30 - 100 ng/mL (75 - 250 nmol/L) Toxicity >100 ng/mL (>250 nmol/L) Platelets bldon 03-13-2022 Platelets (Bld) [#/Vol] 314 10*3/uL 150-450 [facility] Work Phone: [phone] Serum or plasma albumin north urement (mass/volume)on 03-13-2022 Albumin [Mass/Vol] 3.9 g/dL 3.2-5.0 [facility] Work Phone: [phone] Serum or plasma albumin/glob ulin mass ratioon 03-13-2022 Albumin/Globulin [Mass ratio] 0.9 {ratio} 0.9-2.4 [facility] Work Phone: Serum or plasma calcium north urement (mass/volume)on 03-13-2022 Calcium [Mass/Vol] 9.5 mg/dL 8.5-10.1 [facility] Work Phone: Serum or plasma cholesterol in HDL measurement (mass/volume)on 03-13-2022 Cholesterol in HDL [Mass/Vol] 48 mg/dL >40 [facility] Work Phone: Comment on above: The drugs N-Acetylcy steine and Metamizole may falsely depress this assay. Reference Range HDL <40 mg/dL Low HDL Cholesterol HDL >or= 60 mg/dL High HDL Cholesterol Serum or plasma cholesterol in VLDL measurement (mass/volume)on 03-13-2022 Cholesterol in VLDL [Mass/Vol] 47 mg/dL 5-40 [facility] Work Phone: [phone] Serum or plasma creatinine m easurement (mass/volume)on 03-13-2022 Creatinine [Mass/Vol] 0.74 mg/dL 0.55-1.02 [facility] Work Phone: Comment on above: The validity of the calculated GFR & GFRAA in patients over 70 years has not been determined. Clinical correlation is essential. Serum or plasma low density lipoprotein (LDL) cholesterol measurement (mass/volume)on 03-13-2022 Cholesterol in LDL [Mass/Vol] 115 mg/dL 0-130 [facility] Work Phone: Serum or plasma urea nitroge n measurement (mass/volume)on 03-13-2022 Urea nitrogen [Mass/Vol] 14 mg/dL 7-18 [facility] Work Phone: [phone] Thin prep Papanicolaou smear with manual screeningon 03-13-2022 Thin prep Papanicolaou smear with manual screening 33 U/L 15-37 [facility] Work Phone: Comment on above: Moderate Hemolysis, Result may be falsely increased. Thin prep Papanicolaou smear with manual screening 8 5-15 [facility] Work Phone: [phone] Vital Signs Date Time Vital Sign Value Performing Clinician Isabella malik 11-03-2024 12:54-0400 Body height 162.[address] Sd Mitchell MD Work Phone: [facility] 11-03-2024 12:54-0400 Body mass index (BMI) [Ratio] 34.3 kg/m2 Dr. Sd Mitchell MD Work Phone: [facility] 11-03-2024 12:54-0400 Body temperature 97.2 [degF] Dr. Sd Mitchell MD Work Phone: [facility] 11-03-2024 12:54-0400 Body weight 90.[address] Sd Mitchell MD Work Phone: [facility] 11-03-2024 12:54-0400 Diastolic blood pressure 85 mm[Hg] Dr. Sd Mitchell MD Work Phone: [facility] 11-03-2024 12:54-0400 Heart rate 74 /min Dr. Sd Mitchell MD Work Phone: [facility] 11-03-2024 12:54-0400 Respiratory rate 18 /min Dr. Sd Mitchell MD Work Phone: [facility] 11-03-2024 12:54-0400 SaO2% (BldA) [Mass fraction] 98 % Dr. Sd Mitchell MD Work Phone: [facility] 11-03-2024 12:54-0400 Systolic blood pressure 137 mm[Hg] Dr. Sd Mitchell MD Work Phone: [facility] 09-30-2024 13:52-0400 Body height 162.[address] Sd Mitchell MD Work Phone: [facility] 09-30-2024 13:52-0400 Body mass index (BMI) [Ratio] 34.1 kg/m2 Dr. Sd Mitchell MD Work Phone: [facility] 09-30-2024 13:52-0400 Body weight 90.[address] Sd Mitchell MD Work Phone: [facility] 09-30-2024 13:52-0400 Diastolic blood pressure 80 mm[Hg] Dr. Sd Mitchell MD Work Phone: [facility] 09-30-2024 13:52-0400 Heart rate 89 /min Dr. Sd Mitchell MD Work Phone: [facility] 09-30-2024 13:52-0400 Respiratory rate 17 /min Dr. Sd Mitchell MD Work Phone: [facility] 09-30-2024 13:52-0400 SaO2% (BldA) [Mass fraction] 100 % Dr. Sd Mitchell MD Work Phone: [facility] 09-30-2024 13:52-0400 Systolic blood pressure 122 mm[Hg] Dr. Sd Mitchell MD Work Phone: [facility] 09-03-2024 13:29-0400 Body height 162.[address] Sd Mitchell MD Work Phone: [facility] 09-03-2024 13:29-0400 Body mass index (BMI) [Ratio] 34 kg/m2 Dr. Sd Mitchell MD Work Phone: [facility] 09-03-2024 13:29-0400 Body temperature 97.8 [degF] Dr. Sd Mitchell MD Work Phone: [facility] 09-03-2024 13:29-0400 Body weight 89.[address] Sd Mitchell MD Work Phone: [facility] 09-03-2024 13:29-0400 Diastolic blood pressure 74 mm[Hg] Dr. Sd Mitchell MD Work Phone: [facility] 09-03-2024 13:29-0400 Heart rate 76 /min Dr. Sd Mitchell MD Work Phone: [facility] 09-03-2024 13:29-0400 Respiratory rate 16 /min Dr. Sd Mitchell MD Work Phone: [facility] 09-03-2024 13:29-0400 SaO2% (BldA) [Mass fraction] 95 % Dr. Sd Mitchell MD Work Phone: [facility] 09-03-2024 13:29-0400 Systolic blood pressure 115 mm[Hg] Dr. Sd Mitchell MD Work Phone: [facility] 05-30-2024 10:27-0500 Body temperature 98.4 [degF] Dr. Sd Mitchell MD Work Phone: [facility] 05-30-2024 10:27-0500 Diastolic blood pressure 72 mm[Hg] Dr. Sd Mitchell MD Work Phone: [facility] 05-30-2024 10:27-0500 Heart rate 96 /min Dr. Sd Mitchell MD Work Phone: [facility] 05-30-2024 10:27-0500 Respiratory rate 17 /min Dr. Sd Mitchell MD Work Phone: [facility] 05-30-2024 10:27-0500 SaO2% (BldA) [Mass fraction] 98 % Dr. Sd Mitchell MD Work Phone: [facility] 05-30-2024 10:27-0500 Systolic blood pressure 132 mm[Hg] Dr. Sd Mitchell MD Work Phone: [facility] 01-14-2023 10:45-0400 Body height 162.[address] Sd Mitchell Work Phone: [facility] 01-14-2023 10:45-0400 Body mass index (BMI) [Ratio] 34.1 kg/m2 Dr. Sd Mitchell Work Phone: [facility] 01-14-2023 10:45-0400 Body temperature 97.8 [degF] Dr. Sd Mitchell Work Phone: [facility] 01-14-2023 10:45-0400 Body weight 90.[address] Sd Mitchell Work Phone: [facility] 01-14-2023 10:45-0400 Diastolic blood pressure 80 mm[Hg] Dr. Sd Mitchell Work Phone: [facility] 01-14-2023 10:45-0400 Heart rate 101 /min Dr. Sd Mitchell Work Phone: [facility] 01-14-2023 10:45-0400 Respiratory rate 16 /min Dr. Sd Mitchell Work Phone: [facility] 01-14-2023 10:45-0400 SaO2% (BldA) [Mass fraction] 96 % Dr. Sd Mitchell Work Phone: [facility] 01-14-2023 10:45-0400 Systolic blood pressure 136 mm[Hg] Dr. Sd Mitchell Work Phone: [facility] 03-08-2022 12:52-0500 Body temperature 97.5 [degF] Dr. Sd Mitchell Work Phone: [facility] Work Phone: 03-08-2022 12:52-0500 Body weight 87.[address] Sd Mitchell Work Phone: [facility] Work Phone: 03-08-2022 12:52-0500 Diastolic blood pressure 88 mm[Hg] Dr. Sd Mitchell Work Phone: [facility] Work Phone: 03-08-2022 12:52-0500 Heart rate 94 /min Dr. Sd Mitchell Work Phone: [facility] Work Phone: 03-08-2022 12:52-0500 Respiratory rate 16 /min Dr. Sd Mitchell Work Phone: [facility] Work Phone: 03-08-2022 12:52-0500 SaO2% (BldA) [Mass fraction] 95 % Dr. Sd Mitchell Work Phone: [facility] Work Phone: 03-08-2022 12:52-0500 Systolic blood pressure 134 mm[Hg] Dr. Sd Mitchell Work Phone: [facility] Work Phone: 09-26-2021 14:03-0400 Body height 162.[address] Sd Mitchell Work Phone: [facility] Work Phone: 09-26-2021 14:03-0400 Body mass index (BMI) [Ratio] 32.4 kg/m2 Dr. Sd Mitchell Work Phone: [facility] Work Phone: 09-26-2021 14:03-0400 Body weight 85.[address] Sd Mitchell Work Phone: [facility] Work Phone: 09-26-2021 14:03-0400 Diastolic blood pressure 79 mm[Hg] Dr. Sd Mitchell Work Phone: [facility] Work Phone: 09-26-2021 14:03-0400 Respiratory rate 16 /min Dr. Sd Mitchell Work Phone: [facility] Work Phone: 09-26-2021 14:03-0400 Systolic blood pressure 131 mm[Hg] Dr. Sd Mitchell Work Phone: [facility] Work Phone: 08-31-2021 13:28-0400 Body mass index (BMI) [Ratio] 32.2 kg/m2 Dr. Sd Mitchell Work Phone: [facility] Work Phone: 08-31-2021 13:28-0400 Body temperature 98.3 [degF] Dr. Sd Micthell Work Phone: [facility] Work Phone: 08-31-2021 13:28-0400 Body weight 85.[address] Sd Mitchell Work Phone: [facility] Work Phone: 08-31-2021 13:28-0400 Diastolic blood pressure 68 mm[Hg] Dr. Sd Mitchell Work Phone: [facility] Work Phone: 08-31-2021 13:28-0400 Heart rate 82 /min Dr. Sd Mitchell Work Phone: [facility] Work Phone: 08-31-2021 13:28-0400 Respiratory rate 14 /min Dr. Sd Mitchell Work Phone: [facility] Work Phone: 08-31-2021 13:28-0400 SaO2% (BldA) [Mass fraction] 98 % Dr. Sd Mitchell Work Phone: [facility] Work Phone: 08-31-2021 13:28-0400 Systolic blood pressure 124 mm[Hg] Dr. Sd Mitchell Work Phone: [facility] Work Phone: Encounters Encounter Date Encounter Type Care Provider Facility Start: 11-26-2024 [facility]: [facility] Start: 11-19-2024 [facility] Start: 11-17-2024 ambulatory Riley Mandel Facility: [facility] Start: 11-03-2024 End: 11-03-[address] Riley Mandel MD -[facility] Work Phone: Start: 11-03-2024 End: 11-03-[address] Sd Mitchell MD Work Phone: -[facility] Start: 10-23-2024 End: 10-23-[address] Sd Mitchell MD Work Phone: -[facility] Start: 10-23-2024 End: 10-23-[address] Riley Mandel MD -[facility] Work Phone: Start: 10-23-2024 End: 10-23-2024 ambulatory Riley Mandel Facility:[facility] Start: 09-30-2024 End: 09-30-[address] Riley Mandel MD -[facility] Work Phone: Start: 09-30-2024 End: 09-30-[address] Sd Mitchell MD Work Phone: [facility] Work Phone: Start: 09-24-2024 End: 09-24-[address] Sd Mitchell MD Work Phone: [facility] Work Phone: Start: 09-24-2024 End: 09-24-[address] Sd Mitchell MD -[facility] Start: 09-24-2024 End: 09-24-2024 ambulatory Sd Mitchell Facility:[facility] Start: 09-22-2024 End: 09-22-[address] Sd Mitchell MD Work Phone: [facility] Work Phone: Start: 09-22-2024 End: 09-22-[address] Riley Mandel MD -Ultrasound [facility] Work Phone: Start: 09-22-2024 End: 09-22-2024 ambulatory Riley Mandel Facility:[facility] Start: 09-03-2024 End: 09-03-[address] Sd Mitchell MD -[facility] Work Phone: Start: 09-03-2024 End: 09-03-[address] Sd Mitchell MD Work Phone: [facility] Work Phone: Start: 05-30-2024 End: 05-30-2024 Patient encounter procedure Reese Gigi [place] -[facility] Work Phone: Start: 05-30-2024 End: 05-30-2024 ambulatory Sd Mitchell Facility:[facility] Start: 03-18-2024 End: 03-18-2024 ambulatory SD MITCHELL Facility:[facility] Start: 03-18-2024 End: 03-18-2024 Subsequent hospital visit by physician Screen Mammo [facility] Start: 03-05-2024 End: 03-05-2024 ambulatory Sd Mitchell Facility:[facility] Start: 02-14-2023 End: 02-14-[address] Sd Mitchell Work Phone: [facility] Work Phone: Start: 02-14-2023 End: 02-14-[address] Sd Mitchell Work Phone: [facility] [place] Start: 01-14-2023 End: 01-14-[address] Sd Mitchell Work Phone: [facility] Work Phone: Start: 03-13-2022 End: 03-13-[address] Sd Mitchell Work Phone: [facility] Work Phone: Start: 03-13-2022 End: 03-13-[address] Sd Mitchell Work Phone: [facility] [place] Start: 03-08-2022 End: 03-08-[address] Sd Mitchell Work Phone: [facility] Start: 02-06-2022 End: 02-06-[address] Sd Mitchell Work Phone: [facility] Start: 10-13-2021 End: 10-13-[address] Sd Mitchell Work Phone: [facility] Spec[facility] Start: 10-12-2021 End: 10-12-[address] Sd Mitchell Work Phone: [facility] Start: 09-26-2021 End: 09-26-[address] Sd Mitchell Work Phone: [facility] Start: 08-31-2021 End: 08-31-[address] Sd Mitchell Work Phone: [facility] Procedures Date Procedure Procedure Detail Performing Clinician Start: 10-23-2024 CT of soft tissues o f neck with contrast Dr. Sd Mitchell MD Work Phone: Start: 09-24-2024 Vitamin D, 25-hydrox y measurement Dr. Sd Mitchell MD Work Phone: Comment on above: Vitamin D StatusDefi ciency: <20 ng/mL (50nmol/L)Insufficiency: 20-30 ng/mL (50-75 nmol/L)Sufficiency: 30-100 ng/mL (75-250 nmol/L)Toxicity: >100 ng/mL (>250 nmol/L) Start: 09-22-2024 US scan of thyroid Dr. Sd Mitchell MD Work Phone: Start: 04-23-2021 H/O: surgery S/P thyroid biopsy Dr. Sd Mitchell Work Phone: Start: 04-05-2020 Lipid 1996 panel - S marco or Plasma Screen Wstr H/O: surgery History of D&C Dr. Sd carson Work Phone: History of appendectomy History of append ectomy Dr. Sd Mitchell Work Phone: History of cholecystectomy History of cholecystectomy Dr. Sd Mitchell Work Phone: History of tonsillectomy History of tonsi llectomy Dr. Sd Mitchell Work Phone: Plan of Treatment Date Care Activity Detail Author Start: 04-05-2025 Lipid panel Lipid Screening [facility] Start: 02-28-2024 RSV Vaccine (1 - 1-d ose 75+ series) RSV Vaccine (1 - 1-dose 75+ series) [facility] Start: 12-23-2023 Covid-19 Vaccine ( season) Covid-19 Vaccine ( season) [facility] Start: 04-23-2023 Advance Directive Discussion Advance Directive Discussion [facility] Start: 04-05-2023 Diabetes Screening Diabetes Screenin g [facility] Start: 04-07-2021 Annual PCP Team Counter Former shiloh Disease Visit Annual PCP Team Chronic Disease Visit [facility] Start: 10-09-2020 Screening for malign ant neoplasm of breast Mammogram Screening [facility] Start: 01-30-2020 Urine microalbumin profile DTaP,Tdap,Td Vaccine (3 - Tdap) [facility] Start: 12-26-2018 Screening for malign ant neoplasm of colon [facility] Start: 06-18-2009 Shingrix Vaccine (2 of 3) Marcial grix Vaccine (2 of 3) [facility] Start: 1994 Screening for malign ant neoplasm of colon [facility] Start: 1967 Anxiety Screening Anxiety Screening [facility] Start: 1967 BP Controlled (<130/80) BP Con trolled (<130/80) [facility] Start: 1967 Depression Screening Depression Scre ening [facility] Start: 1967 Spirometry Spirometry [facility] CT Neck [facility] Hemoglobin A1c/Hemoglobin.total in Blood [facility] Immunizations Immunization Date Immunization Notes Care Provider Fa [facility] 02-06-2022 influenza, injectabl e, quadrivalent, preservative free Dr. Sd Mitchell Work Phone: [facility] 02-06-2022 influenza, seasonal, injectable Dr. Sd Mitchell Work Phone: [facility] Work Phone: 02-16-2020 influenza (HD-IIV4) vaccine, age 65+ yr, high dose, quadrivalent, PF (FLUZONE HIGH-DOSE) Screen [facility] 02-16-2020 influenza, injectabl e, quadrivalent, preservative free Dr. Sd Mitchell Work Phone: [facility] 02-16-2020 influenza, seasonal, injectable Dr. Sd Mitchell Work Phone: [facility] Work Phone: 02-19-2017 influenza, high dose seasonal, preservative-free Screen [facility] 02-25-2016 influenza, high dose seasonal, preservative-free Screen [facility] 03-23-2015 pneumococcal polysaccharide vaccine, [address] Sd Mitchell Work Phone: [facility] 03-11-2015 influenza, seasonal, injectable Screen [facility] 04-06-2014 pneumococcal conjuga te vaccine, [address] Sd Mitchell Work Phone: [facility] 01-21-2014 influenza, seasonal, injectable Screen [facility] 01-28-2013 influenza virus vacc ine, unspecified formulation Screen [facility] 02-07-2012 influenza virus vacc ine, unspecified formulation Screen [facility] 01-29-2010 diphtheria and tetan us toxoids, adsorbed for pediatric use Screen [facility] 01-29-2010 Diptheria,Tetanus,Pe rtus sis Vaccine Dr. Sd Mitchell Work Phone: [facility] 04-23-[address] Sd Mitchell Work Phone: [facility] 04-23-2009 zoster vaccine, live Screen [facility] 01-19-2009 influenza virus vacc ine, unspecified formulation Screen [facility] Work Phone: 03-01-2006 influenza virus vacc ine, unspecified formulation Screen [facility] Work Phone: 10-05-2003 diphtheria and tetan us toxoids, adsorbed for pediatric use Screen tr [facility] 10-05-2003 Diptheria,Tetanus,Pe rtus sis Vaccine Dr. Sd Mitchell Work Phone: [facility] 03-10-2003 pneumococcal polysaccharide vaccine, [address] Sd Mitchell Work Phone: [facility] Payers Date Payer Category Payer Self-pay [id number] 2023 Unknown [id number] 2019 Unknown [employer] [facility] MEDICARE SUPPLEMENT [id number] 2019-Present [phone] [address] [place] [address] Indemnity [id number] 2019 Medicare [id number] 2014 Medicare MEDICARE MEDICAR E A AND B [id number] 2014-Present [phone] [place] [address] Medicare [id number] 2012 Medicare [id number] Unknown [id number] 2 Unknown [id number] 2 Unknown [id number] 2 Unknown [id number] 2 Unknown [id number] 2 Unknown [id number] 2 Unknown [id number] 2 Unknown [id number] 2 Unknown [id number] 2 Unknown [id number] 2 Social History Date Type Detail Facility Start: 10-12-2021 End: 01-14-2023 Tobacco smoking status RIIS Unknown if ever smoked [facility] Start: 08-19-2020 Occasional [facility] Start: 08-19-2020 None [facility] Start: 08-19-2020 Homeless [facility] Start: 08-19-2020 Non-smoker [facility] Start: 1950 Sex Assigned At Female [facility] Start: 02-12-2012 End: 10-24-2023 Tobacco smoking status RIIS Never smoked tobacco [facility] Start: 02-12-2012 Tobacco use and exposure Smokeless tobacco non-user [facility] Start: 04-07-2020 Alcoholic beverage intake Current drinker of alcohol (finding) [facility] Start: 04-07-2020 End: 03-18-2024 History of Social function [facility] Start: 04-07-2020 End: 03-18-2024 Tobacco use panel [facility] Adult Depression Screening Assessment 0 [facility] Start: 1950 Sex assigned at Not on file C [facility] Radiology Diagnostic study note 10-23-2024 Note Date & Type Note Facility 10-23-2024 Radiology Diagnostic study note [facility] Imaging Services [address] [place] [address] Soft Tissue Neck W/WO Contrast MR#: [id number] Acct: [id number] Name: HILARY RIVAS Rep #: [id number] : 1950 F 74 From: Sekou Almazan MD PCP: Dr. Sd Mitchell MD Status: REG CLI Study:Soft Tissue Neck W/WO Contrast Date of Exam: 10/23/24 Exam# [id number] Ordering Dr: Lakshmi Mandel MD PROCEDURE: SOFT TISSUE NECK W/WO CONTRAST 10/23/2024 REASON FOR EXAM: MULTINODULAR GOITER TECHNIQUE: SOFT TISSUE NECK W/WO CONTRAST CONTRAST: 75 cc Isovue-300 One or more dose reduction techniques were used (e.g., Automated exposure control, adjustment of the mA and/or kV according to patient size, use of iterative reconstruction technique). FINDINGS: The precontrast images demonstrate no abnormal calcifications in the salivary glands are oral cavity. No airway compromise. Heterogeneous thyroid gland noted. No airway compromise. Contrast-enhanced imaging demonstrate the left lobe of the thyroid gland to extend to the level of the sternal notch but not below. No airway compromise. Tiny nodules within the gland better assessed with ultrasound. The craniocaudal extent of the left lobe is approximately 6 cm with a transversemeasurement of 3 cm. No substernal extension on the right. Normal tracheoesophageal groove. CT/Soft Tissue Neck W/WO Contrast IMPRESSION: Extension of the left thyroid lobe to the level of the sternal notch. No luminal airway compromise. No adenopathy. Reading Location: [facility] CC: Dr. Sd Mitchell MD; Dr. Riley Mandel MD ~ Dye Range Tender: Signed [facility] Radiology Diagnostic study note 09-23-2024 Note Date & Type Note Facility 09-23-2024 Radiology Diagnostic study note [facility] Imaging Services [address] [place] [address] Thyroid MR#: [id number] Acct: [id number] Name: HILARY RIVAS Rep #: [id number] : 1950 F 74 From: Renzo Jefferson MD PCP: Dr. Sd Mitchell MD Status: REG CLI Study:Thyroid Date of Exam: 09/22/24 Exam# [id number] Ordering Dr: Lakshmi Mandel MD PROCEDURE: THYROID 09/22/2024 REASON FOR EXAM: THYROID NODULE TECHNIQUE: High-frequency thyroid ultrasound, including grayscale and color-flow images. REFERENCE LINKS: TI-RADS Chart: [email or web address] [email or web address] TI-RADS Calculator Tool with Reference Images: [email or web address] ads-[email or web address]/ COMPARISON: 10/02/2023 FINDINGS: Right thyroid lobe [...] thyroid nodules. Advise FNA for the largest leftthyroid lobe nodule. RECOMMENDATION: Based on most suspicious nodule. Nodule size = largest diameter Only evaluate nodule if =>5 mm. Growth > 20% in 2 dimensions = worsening. Follow up to 4 nodules. Recommend biopsy for no more than 2 nodules. Reading Location: [place] [address] CC: Dr. Sd Mitchell MD; Dr. Riley Mandel MD ~ Dye Range Tender: Signed [facility] Evaluation note 09-03-2024 Note Date & Type Note Facility 09-03-2024 Evaluation note Diagnosis Onset Date Resolution Asthma acute September 03, 2024 1:20pm Multinodular goiter acute August 212024 1:20pm Seasonal allergies acute September 032024 1:20pm Hypertension chronic September 03 1:20pm [facility] Work Phone: Evaluation note 09-03-2024 Note Date & Type Note Facility 09-03-2024 Evaluation note Diagnosis Onset Date Resolution Asthma acute September 03, 2024 1:20pm Seasonal allergies acute September 032024 1:20pm Hypertension chronic September 03 1:20pm Multinodular goiter chronic August 212024 1:20pm Multinodular goiter chronic September 30, 2024 1:28pm [facility] Work Phone: Evaluation note 05-30-2024 Note Date & Type Note Facility 05-30-2024 Evaluation note Diagnosis Onset Date Resolution Asthma exacerbation acute 2024 10:11am Asthma acute September 03, 2024 1:20pm Multinodular goiter acute August 212024 1:20pm Seasonal allergies acute September 032024 1:20pm Hypertension chronic September 03 1:20pm [facility] Work Phone: Evaluation note Note Date & Type Note Facility Evaluation note Diagnosis Onset Date Arthritis acute Asthma acute 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 acute Multinodular goiter acute Seasonal allergies acute Hypertension chronic Multinodular goiter acute Thyroid nodule acute [facility] Work Phone: Evaluation note Note Date & Type Note Facility Evaluation note Diagnosis Onset Date Asthma acute Dyspnea on exertion acute Multinodular goiter acute Seasonal allergies acute Thyroid nodule acute Hypertension chronic [facility] Work Phone: Evaluation note Note Date & Type Note Facility Evaluation note Diagnosis Onset Date Maxillary sinusitis acute [facility] Work Phone: Reason for referral (narrative) Note Date & Type Note Facility Reason for referral (narrative) No reason for referral information available [facility] Work Phone: Chief Complaint and Reason for Visit Chief Complaint 6 M FU Thyroid Nodule LEFT THYROID BIOPSY X2 MULTIPLE THYROID NODULES Reason for Visit Arthritis Asthma Current use of long-term anticoagulation Multinodular goiter Seasonal allergies Hypertension Multinodular [...] m Hypertension September 03, 2024 1:20p m Chief Complaint Admit Date Cough May 30, 2024 1 0:11am 6 M FU September 03, 2024 1:20p m THYROID NODULE September 22, 2024 12:40 pm Chief Complaint Admit Date 6 M FU September 03, 2024 1:20p m THYROID NODULE September 22, 2024 12:40 pm Reason for Visit Admit Date Asthma September 03, 2024 1:20p m Multinodular goiter September 03, 2024 1:20p m Seasonal allergies September 03, 2024 1:20p m Hypertension September 03, 2024 1:20p m Chief Complaint Admit Date 6 M FU September 03, 2024 1:20p m THYROID NODULE September 22, 2024 12:40 pm THYROID RECALL, RC PT September 30, 2024 1: 28pm Chief Complaint Admit Date 6 M FU September 03, 2024 1:20p m THYROID NODULE September 22, 2024 12:40 pm THYROID RECALL, RC PT September 30, 2024 1: 28pm MULTINODULAR GOITER October 23, 2024 2:54p m Reason for Visit Admit Date Asthma September 03, 2024 1:20p m Seasonal allergies September 03, 2024 1:20p m Hypertension September 03, 2024 1:20p m Multinodular goiter September 03, 2024 1:20p m Multinodular goiter September 30, 2024 1:28 pm Chief Complaint Admit Date 6 M FU September 03, 2024 1:20p m THYROID NODULE September 22, 2024 12:40 pm THYROID RECALL, RC PT September 30, 2024 1: 28pm MULTINODULAR GOITER October 23, 2024 2:54p m REVIEW CT RESULTS November 03, 2024 12:4 7pm Family History No Family History Records Found Relationship Condition Age at Onset Recorded Date/T leann mother Asthma Unknown Arthritis Unknown Malignant neoplasm of breast Unknown Hypertension Unknown Osteoporosis Unknown grandfather Asthma Unknown sister Malignant neoplasm of breast Unknown father Malignant neoplasm Unknown Relationship Condition Age at Onset Recorded Date/T leann mother Asthma Unknown Arthritis Unknown Hypertension Unknown Osteoporosis Unknown grandfather Asthma Unknown sister Malignant neoplasm of breast Unknown father Malignant neoplasm Unknown aunt Malignant neoplasm of breast Unknown Advance Directives No Advanced Directives Records Found Advance Directive Response Recorded Date/ Time Living Will No January 16, 2017 12:05pm Power of Photography Professor No December 12:05pm Advance Directive Response Recorded Date/ Time Living Will No January 16, 2017 11:05am Power of Photography Professor No December 11:05am Summary Purpose Additional Source [...] Provider, Referri ng Provider Active Jassi Lr CHERRY SORTER, CHERRY SORTER-C Attending Provider Active Team Status: Inactive Member Role Status Dates Dr. Sd Mitchell MD Primary Care Pro vider, Attending Provider, Referring Provider Active Performance Makeup Artist Relationship Specialty [place] [address] [place] [id number] PCP - General Internal Medicine 04/05/21 Team Status: Active Member Role Status Dates Dr. Sd Mitchell MD Primary Care Provider Active Team Status: Inactive Member Role Status Dates Dr. Sd Mitchell MD Primary Care Provider Active Start: May 30, 2024 End: May 30, 2024 Dr. Sd Mitchell MD Referring Provider Active Start: May 30, 2024 End: May 30, 2024 Reese MCKENZIE, PA Attending Provider Active Sta rt: May 30, 2024 End: May 30, 2024 Team Status: Inactive Member Role Status Dates Dr. Sd Mitchell MD Primary Care Provider Active Start: September 03, 2024 End: September 03, 2024 Dr. Sd Mitchell MD Attending Provider Active Start: September 03, 2024 End: September 03, 2024 Team Status: Inactive Member Role Status Dates Dr. Sd Mitchell MD Primary Care Provider Active Start: September 22, 2024 End: September 22, 2024 Dr. Riley Mandel MD Attending Provider Active Start: September 22, 2024 End: September 22, 2024 Dr. Riley Mandel MD Referring Provider Active Start: September 22, 2024 End: September 22, 2024 Team Status: Active Member Role Status Dates Dr. Sd Mitchell MD Primary Care Provider Active Start: September 24, 2024 Dr. Sd Mitchell MD Attending Provider Active Start: September 24, 2024 Dr. Sd Mitchell MD Referring Provider Active Start: September 24, 2024 Team Status: Inactive Member Role Status Dates Dr. Sd Mitchell MD Primary Care Provider Active Start: September 24, 2024 End: September 24, 2024 Dr. Sd Mitchell MD Attending Provider Active Start: September 24, 2024 End: September 24, 2024 Dr. Sd Mitchell MD Referring Provider Active Start: September 24, 2024 End: September 24, 2024 Team Status: Inactive Member Role Status Dates Dr. Sd Mitchell MD Primary Care Provider Active Start: September 30, 2024 End: September 30, 2024 Dr. Sd Mitchell MD Referring Provider Active Start: September 30, 2024 End: September 30, 2024 Dr. Riley Mandel MD Attending Provider Active Start: September 30, 2024 End: September 30, 2024 Team Status: Active Member Role/Relationship Status Dates Dr. Sd Mitchell MD Primary Care Provider Active Team Status: Inactive Member Role/Relationship Status Dates Dr. Sd Mitchell MD Primary Care Provider Active Start: September 03, 2024 End: September 03, 2024 Dr. Sd Mitchell MD Attending Provider Active Start: September 03, 2024 End: September 03, 2024 Team Status: Inactive Member Role/Relationship Status Dates Dr. Sd Mitchell MD Primary Care Provider Active Start: September 22, 2024 End: September 22, 2024 Dr. Riley Mandel MD Attending Provider Active Start: September 22, 2024 End: September 22, 2024 Dr. Riley Mandel MD Referring Provider Active Start: September 22, 2024 End: September 22, 2024 Team Status: Inactive Member Role/Relationship Status Dates Dr. Sd Mitchell MD Primary Care Provider Active Start: September 24, 2024 End: September 24, 2024 Dr. Sd Mitchell MD Attending Provider Active Start: September 24, 2024 End: September 24, 2024 Dr. Sd Mitchell MD Referring Provider Active Start: September 24, 2024 End: September 24, 2024 Team Status: Inactive Member Role/Relationship Status Dates Dr. Sd Mitchell MD Primary Care Provider Active Start: September 30, 2024 End: September 30, 2024 Dr. Sd Mitchell MD Referring Provider Active Start: September 30, 2024 End: September 30, 2024 Dr. Riley Mandel MD Attending Provider Active Start: September 30, 2024 End: September 30, 2024 Team Status: Inactive Member Role/Relationship Status Dates Dr. Sd Mitchell MD Primary Care Provider Active Start: October 23, 2024 End: October 23, 2024 Dr. Riley Mandel MD Attending Provider Active Start: October 23, 2024 End: October 23, 2024 Dr. Riley Mandel MD Referring Provider Active Start: October 23, 2024 End: October 23, 2024 Team Status: Inactive Member Role/Relationship Status Dates Dr. Sd Mitchell MD Primary Care Provider Active Start: November 03, 2024 End: November 03, 2024 Dr. Sd Mitchell MD Referring Provider Active Start: November 03, 2024 End: November 03, 2024 Dr. Riley Mandel MD Attending Provider Active Start: November 03, 2024 End: November 03, 2024 Source Comments (unrecognize d section and content) In the event this informatio n is protected by the Federal Confidentiality of Alcohol and Drug Abuse Patient Records regulations: The Federal rules restrict any use of the information to criminally investigate or prosecute any alcohol or drug abuse patient.[facility] INFORMATION SOURCE (unrecogn ized section and content) DATE CREATED AUTHOR 03/21/2024 [facility] DATE CREATED AUTHOR AUTHOR'S ORGANIZ ATION 11/24/2024 [facility] FOR RECORDS PERTAINING TO PATIENTS WHO [...] BE BASED ON THE PRIMARY CLINICAL RECORDS. [facility] provides no warranty or guarantee of the accuracy or completeness of information in this document.
[2024-11-26] MEDS: Lactated Ringers 1,000 ML 15 ML IV ×2 (06:29→12:12)
--- NOTE | 2024-11-26 06:38 | PCM.PRE.AN2 ---
ASA Classification* ASA Classification ASA Classification: 2 Assessment & Plan Anesthesia* Anesthesia Assessment Anesthesia Assessment: Discussed sedation and/or anesthesia options, risks, benefits, and alternatives with patient/parents/legal guardian/POA. Questions invited. The patient/parents/legal guardian/POA seems to understand and agrees to proceed with anesthesia plan. Reviewed the physical assessment, medical history, allergy history and patient home medications list prior to surgery/procedure/anesthetic and documented any changes. Performed airway and anesthesia risk assessments. Anesthesia Type Anesthesia Type: General Anesthesia Focused Assessment* Temperature: 98.5 F Pulse Rate: 99 Blood Pressure: 143/90 Respiratory Rate: 18 Pulse Ox: 97 Airway Assessment Mouth opens: >3 cm Mallampati Score: II Labs Anesthesia Preop lab: CBC WBC 10.1 K/mm3 (4.4-11.0) 09/24/24 08:45 09/24/24 RBC 5.38 M/mm3 (4.2-5.4) 09/24/24 08:45 09/24/24 Hgb 15.3 g/dL (12.0-15.0) H 09/24/24 08:45 09/24/24 Hct 44.8 % (37-47) 09/24/24 08:45 09/24/24 Plt Count 321 K/mm3 (150-450) 09/24/24 08:45 09/24/24 CHEMISTRY Potassium 4.2 mmol/L (3.3-5.1) 09/24/24 08:45 09/24/24 Sodium 138 mmol/L (133-145) 09/24/24 08:45 09/24/24 Magnesium 2.3 mg/dL (1.5-2.2) H 09/24/24 08:45 09/24/24 Phosphorus 3.1 mg/dL (2.5-4.9) 11/03/12 04:35 11/03/12 BUN 15 mg/dL (4-19) 09/24/24 08:45 09/24/24 Creatinine 0.71 mg/dL (0.70-1.20) 09/24/24 08:45 09/24/24 Glucose 90 mg/dL (70-99) 09/24/24 08:45 09/24/24 TSH 1.620 uIU/mL (0.300-4.200) 09/24/24 08:45 09/24/24 COAG PT 24.7 SECONDS (11.7-14.9) H 01/16/17 12:51 01/16/17 Pre-Assessment Diagnosis/Proposed Procedure Planned Operative Procedure(s): (L) Thyroid lobectomy w/isthmus & IONM Anesthesia History Anesthesia History - [facility] bpm consultant: Anesthesia History - [facility] consultant Hx Hospitalization No 11/12/24 09:25 Any Problems With Anesthesia No 11/12/24 09:25 Cholinesterase deficiency No 11/12/24 09:25 You/Your Family Experience No 11/12/24 09:25 fever (hyperthermia) with Relationship Recent Exposure to Contagious No 11/26/24 06:26 Disease Does patient have nerve No 11/12/24 09:25 stimulator Patient instructed to have device shut off --Does patient have Pacemaker No 11/26/24 06:26 or ICD? When Was Last Pacemaker Check QUESTION #4 FULL TEXT: You/Your Family Experience fever (hyperthermia) with Anesthesia Last Oral Intake Last Oral intake: Last Oral Intake NPO since 05:30 11/26/24 06:26 Meds taken in AM with sips of Yes 11/26/24 06:26 water? Meds patient instructed to take am of surgery PONV PONV - oracle bpm consultant: PONV - [facility] bpm consultant Female Yes 11/12/24 09:25 HX of Motion Sickness No 11/12/24 09:25 HX of N/V After Surgery No 11/12/24 09:25 Non-Smoker Yes 11/12/24 09:25 Duration of Surgery greater Yes 11/12/24 09:25 than 60 minutes Number of Risk Factors 3 11/12/24 09:25 PONV Score Moderate Risk 11/12/24 09:25 Height & Weight Height & Weight: Anesthesia: Height & Weight Height 5 ft 4 in 11/26/24 06:26 Weight: 90 kg 11/26/24 06:26 Body Mass Index (BMI) 34.0 11/26/24 06:26 Respiratory Assessment Respiratory Assessment - oracle bpm consultant: Respiratory Tract Infection Hx - oracle bpm consultant Hx Respiratory Tract Infection STOP Sleep Apnea STOP Sleep Apnea - oracle bpm consultant: STOP Sleep Apnea - oracle bpm consultant Hx Hypertension Yes: CONTROLLED ON MED 11/12/24 09:25 Hx Sleep Apnea No 11/12/24 09:25 CPAP BIPAP Do you snore loudly (louder No 11/12/24 09:25 than talking or can be heard Do you often feel tired/ No 11/12/24 09:25 fatigued/ sleepy during daytime? Has anyone observed you stop No 11/12/24 09:25 breathing during sleep? STOP Results Negative 11/12/24 09:25 QUESTION #5 FULL TEXT : Do you snore loudly (louder than talking or can be heard through closed doors)? 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 Specify any problems Hx of Preganancy in last 3 No 11/12/24 09:25 Months Nurse Filling Out Transfusion VCHRISTIN 11/12/24 09:25 & Questions: Date: 11/12/24 11/12/24 09:25 Time: 09:26 11/12/24 09:25 Patient unable to answer at this time (ie. confused, unrespo /Reproduction History /Reproductive History - [facility] bpm consultant: /Reproductive Hx- [facility] bpm consultant Hx Now No 11/12/24 09:25 Gestational Age (in weeks): EDC: Hx Hx Para Hx Section SAB No 11/12/24 09:25 Active Medications Active Medications: Current Medications Generic Name Dose Route Start Last Admin Trade Name Freq PRN Reason Stop Dose Admin Lactated Ringer's 1,000 mls @ 15 mls/hr 11/26/24 06:00 11/26/24 06:29 IV 15 mls/hr .Q48H YUMI Administration PFSH Medical History Wears glasses Post-menopausal Alcohol use DVT (deep venous thrombosis) Easy bruising Excessive bleeding Injury of head and neck History of diverticulitis Non-smoker Chronic cough History of edema History of echocardiogram History of irregular heartbeat Current use of half-way anticoagulation Thyroid nodule Thyroid nodule, uninodular History of pulmonary embolism Hypertension Gallstones Breast lump Bone fracture Asthma Arthritis Seasonal allergies Home Medications ?Medication ?Instructions ?Recorded ?Last Taken ?Type cetirizine 10 mg capsule (Zyrtec) 10 mg PO DAILY 09/13/13 11/25/24 History cholecalciferol (vitamin D3) 25 1,000 unit PO DAILY 10/24/23 11/25/24 History mcg (1,000 unit) capsule (Vitamin D3) albuterol sulfate 90 mcg/actuation 2 puff inhalation Q6H PRN 03/05/24 Unknown Rx aerosol inhaler shortness of breath or wheezing #8.5 grams fluticasone furoate 100 1 inh inhalation DAILY #90 ea 03/05/24 11/26/24 05:00 Rx mcg/actuation blister powder for inhalation (Arnuity Ellipta) irbesartan 300 mg tablet 300 mg PO DAILY #90 tabs 04/30/24 11/26/24 05:30 Rx nifedipine 60 mg tablet,extended 60 mg PO DAILY #90 tabs 04/30/24 11/26/24 05:30 Rx release 24 hr rivaroxaban 10 mg tablet (Xarelto) 10 mg PO DAILY #90 tabs 04/30/24 11/21/24 Rx spironolactone 25 mg tablet 25 mg PO DAILY #90 tabs 04/30/24 11/25/24 Rx montelukast 10 mg tablet 10 mg PO QHS 11/12/24 Unknown History Allergy/AdvReac Type Severity Reaction Status Date / Time diclofenac AdvReac Unknown GI upset Verified 11/26/24 06:23 erythromycin base AdvReac Upset Verified 11/26/24 06:23 (Erythromycin Base) Stomach hydrochlorothiazide AdvReac Other Verified 11/26/24 06:23 indapamide AdvReac Other Verified 11/26/24 06:23 triamterene (From Dyazide) AdvReac Other Verified 11/26/24 06:23 Family History Mother Asthma Arthritis Hypertension Osteoporosis Grandfather Asthma Sister Breast cancer Father Cancer brain Hypertension Aunt Breast cancer Surgical History Hx of section History of bunionectomy of right great toe History of cataract surgery S/P thyroid biopsy (~09/2021) History of D&C History of right oophorectomy History of cholecystectomy History of appendectomy History of tonsillectomy Social History Smoking Status: Never smoker alcohol intake: current alcohol intake frequency: a few times a month Alcohol type: wine substance use type: does not use what type of physical activity do you participate in: walking and weight training frequency: 3-4 times per week Review of Systems (Anesthesia) ROS Narrative System reviewed and no additional complaints, except as documented.
--- NOTE | 2024-11-26 06:59 | PCM.HP.BLA ---
History and Physical Date of Admission: 11/26/24 Date of Service: 11/03/24 MR#: [id number] Acct: [id number] Name: HILARY RIVAS Rep #: [id number] : 1950 Provider: Dr. Riley Mandel MD Age/Sex: 74/F Location: [facility] Status: Signed Intake Vital Signs 09/30/2512:52 11/04/2511:54 Height 5 ft 4 in 5 ft 4 in Weight: 199 lb 200 lb BMI 34.1 34.3 BP 122/80 H 137/85 H Blood Pressure Location Rt brachial Rt brachial Position Sitting Sitting Respiration 17 18 Pulse 89 74 Pulse Source Monitor Monitor Temp 97.2 F L Temp Source Temporal Pulse Oximetry (%) 100 98 Oxygen Delivery Method room air room air Intake Visit Reasons: REVIEW CT RESULTS Chief Complaint: review CT Is patient in pain?: No Allergies diclofenac Adverse Reaction (Unknown, Verified 11/03/24 12:54) GI upseterythromycin base (Erythromycin Base) Adverse Reaction (Verified 11/03/24 12:54) Upset Stomachhydrochlorothiazide Adverse Reaction (Verified 11/03/24 12:54) Otherindapamide Adverse Reaction (Verified 11/03/24 12:54) Othertriamterene (From Dyazide) Adverse Reaction (Verified 11/03/24 12:54) Other Medications ?Medication ?Instructions ?Recorded ?Confirmed ?Type cetirizine 10 mg capsule (Zyrtec) 10 mg PO DAILY 09/13/13 11/03/24 History cholecalciferol (vitamin D3) 25 1,000 unit PO DAILY 10/24/23 11/03/24 History mcg (1,000 unit) capsule (Vitamin D3) albuterol sulfate 90 mcg/actuation 2 puff inhalation Q6H PRN 03/05/24 11/03/24 Rx aerosol inhaler shortness of breath or wheezing #8.5 grams fluticasone furoate 100 1 inh inhalation DAILY #90 ea 03/05/24 11/03/24 Rx mcg/actuation blister powder for inhalation (Arnuity Ellipta) irbesartan 300 mg tablet 300 mg PO DAILY #90 tabs 04/30/24 11/03/24 Rx montelukast 10 mg tablet 10 mg PO DAILY #90 tabs 04/30/24 11/03/24 Rx nifedipine 60 mg tablet,extended 60 mg PO DAILY #90 tabs 04/30/24 11/03/24 Rx release 24 hr rivaroxaban 10 mg tablet (Xarelto) 10 mg PO DAILY #90 tabs 04/30/24 11/03/24 Rx spironolactone 25 mg tablet 25 mg PO DAILY #90 tabs 04/30/24 11/03/24 Rx Have you fallen in the past year?: No PFSH Medical History 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 Thyroid nodule Thyroid nodule, uninodular History of pulmonary embolism Hypertension Gallstones Breast lump Bone fracture Asthma Arthritis Seasonal allergies Surgical History History of cataract surgery S/P thyroid biopsy (~09/2021) History of D&C History of right oophorectomy History of cholecystectomy History of appendectomy History of tonsillectomy Family History Mother Asthma Arthritis Hypertension OsteoporosisGrandfather AsthmaSister Breast cancerFather Cancer brain HypertensionAunt Breast cancer Social History Smoking Status: Never smoker alcohol intake: current alcohol intake frequency: a few times a month Alcohol type: wine substance use type: does not use what type of physical activity do you participate in: walking and weight training frequency: 3-4 times per week HPI HPI HPI: Patient is a 74-year-old female who makes surgical follow-up for thyroid surveillance. Patient is a former patient of Dr. Damian Proctor. Last seen 09/30/2024. She denies any interval health updates but again discusses that she has a lot of drainage that she simply sits deep in her chest and she must cough frequently to clear this drainage. She reports a trial with Mucinex but was unimpressed. She does report using Zyrtec every day for the symptoms. She denies any complaints of hoarseness or swallowing difficulty. She follows up after CT imaging of her neck was completed on 10/23/2024. Below is recapitulated from patient's prior visit for ease of review: Patient is a 74-year-old female who makes surgical follow-up for thyroid surveillance. Patient is a former patient of Dr. Damian Proctor. Last seen 10/15/2023. She states that she began following her thyroid with [facility] physicians approximately starting in 2015. She notes that she has had so many biopsies I can keep track. She denies development of any new cough, hoarseness, shortness of breath, or swallowing difficulty. She does acknowledge a persistent productive cough related to some ongoing drainage that she has had for forever. Additional medical history is reviewed and she states that she has a heart murmur and has been examined with echocardiography but she is unable to detail this further. 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 Patient discussed the diagnosis of osteoporosis in broken bones but her last broken bone was a broken arm in 2014 that occurred after significant ground-level fall. Anticipation of today's procedure patient completed interval thyroid ultrasound on 09/22/2024. This found a right thyroid lobe measuring 5.2 x 2.2 x 1.9 cm in the left thyroid lobe measuring 6.9 x 2.5 x 2.9 cm. 3 nodules were described on each side including a left-sided heterogenous solid nodule measuring 4.3 x 2.4 x 2.7 cm. In their impression radiology noted that bilateral thyroid nodules were slightly progressed and advised FNA for this latter left-sided thyroid nodule. ROS General General: No weight change, appetite, fatigue, colon cancer, breast cancer or weakness HEENT HEENT: Yes eye surgery; No difficulty swallowing, eye injury, swollen glands or hoarseness Endo Endocrine: Yes thyroid disease; No diabetes mellitus, thyroid cancer, Hair loss, heat intolerance or cold intolerance Skin Skin: No rash or changing moles Musc Musculoskeletal: Yes arthritis; No back problems, rheumatoid arthritis, gout or joint pain Cardio Cardiovascular: Yes murmur and high blood pressure; No pacemaker, heart disease, atrial fibrillation, heart attack, heart stent, palpitations, shortness of breath with exertion or chest pain Psych Psychiatric: No depression, anxiety or hearing voices Resp Respiratory: No shortness of breath, No sleep apnea, Yes cough, No COPD, Yes asthma, No emphysema and No wheezing Gastro Gastrointestinal: No abdominal pain, No nausea or vomiting, No diarrhea, No constipation, No blood in stool, No acid reflux, Yes hemorrhoids, No ulcers, No gallbladder problem and No black,tarry stools Andrew Hematologic: Yes blood thinners, No blood disorders, No bleeding, No anemia and No blood clots Neuro Neurologic: No system reviewed and no additional complaints, except as documented, No as per HPI, No abnormal gait, No abnormal hearing, No abnormal movements, No abnormal speech, No behavioral changes, No burning sensations, No confusion, No convulsions, No disequilibrium, No dizziness, No localized weakness, No frequent falls, No headache(s), No lack of coordination, No loss of vision, No memory loss, No numbness, No other visual disturbances, No radicular pain, No restless legs, No sensory deficit, No syncope, No tingling, No tremor(s), No weakness and No other Exam Const General: cooperative and anxious Orientation: alert, awake and oriented x3 Neck Lymphatic: no lymphadenopathy noted Other: Soft, nontender, fullness left greater than right Assessment and Plan Assessment and Plan (1) Multinodular goiter: Status: Chronic Comment: Patient is a 74-year-old female who has been under thyroid nodule surveillance for the last 9 years, first to the [facility] and then with Dr. Proctor until his prison last year. She reports numerous previous thyroid FNAs including apparently at least 3 separate fine-needle aspirations for a dominant left-sided thyroid nodule. All biopsy results have been benign. I shared with her the results of her most recent thyroid ultrasound exam and explained to her the first-line treat is using ACR TI-RADS grading system. I then shared how the SULEMA defines significant growth based on single dimensions and volumetric expansion. I shared with patient that her left sided thyroid nodule, once again, met criteria for repeat biopsy demonstrating a 54% increase in growth. However, I cautioned that I did not believe a repeat biopsy at this time would be additive. I believe 3 prior procedures all showing benign results should be considered definitive and if the nodule continues to grow that a discussion should be held around possible surgical intervention. I conceded that patient does not appear to have any compressive symptoms but did recommend she consider a left thyroid lobectomy since her thyroid gland seems to be disproportionately skewed to the left. I added that I would recommend she undergo CT imaging of the neck to determine if there is any evidence of external compression on surrounding anatomy and if there is a significant substernal component. I shared this latter point was further critical after performing an ultrasound exam where I identified at least a portion of the inferior pole diving deep to the left clavicle. Patient was receptive of this information and hand drawings were made to illustrate relevant points. We briefly discussed the risks attendant with a thyroid lobectomy. Will plan to follow-up with a second office visit once the CT of the neck is complete to determine her interest and the technical feasibility of proceeding with thyroid lobectomy. Update 11/03/2024: Patient is 74-year-old female who makes follow-up visit after CT imaging was completed to evaluate for substernal extension with her multinodular goiter?and particularly enlarged left thyroid lobe. CT imaging confirmed the inferior pole to extend to the level of the sternal notch but not more deeply. Additionally, radiology did not find evidence of any compression of the larynx or esophagus. I reviewed the imaging with Mrs. Rivas. I discussed that and just 4 years (since 2020) her thyroid lobe (and the nodules under surveillance) have grown. I frankly stated that there is no way to definitively state that her past experience of growth would mean the thyroid would continue to grow into the future, but I did caution that further growth could lead to substernal extension and more compressive physiology. It is with this concern in mind that I maintain my recommendation for left thyroid lobectomy with isthmusectomy. This was reiterated to the patient and I followed this recommendation with a hand drawing of the proposed procedure to discuss procedure?specific risks of recurrent laryngeal nerve injury and hypoparathyroidism. I discussed these as being proportionally related to the degree/extent of surgery. Patient confirmed understanding of this discussion. She wishes to proceed as recommended. Plan: Left thyroid lobectomy with isthmusectomy and intraoperative nerve monitoring. Anticipated disposition: Outpatient. Patient to require hold of her Xarelto for 48 hours preoperatively to mitigate her risk for postprocedural bleeding. I have examined the patient and the H&P has been reviewed. There are no clinical changes since date of exam. Patient reports that she has some persistent postnasal drip, but otherwise denies health changes. She also confirms that she has held her Xarelto appropriately for today's procedure. Procedure details were reviewed including postprocedure wound care instructions. All questions were answered to satisfaction. Consents were confirmed. Proceed to the OR as indicated above for left thyroid lobectomy with isthmusectomy using intraoperative neuromonitoring.
[2024-11-26] MEDS: Midazolam 2 MG/2 ML Syringe 1.5 MG IV (07:27)
--- NOTE | 2024-11-26 07:30 | THYROID_PTH ---
PATIENT: HILARY RIVAS LOC: [facility] [place] U#:[id number] AGE/SX: 74/F ROOM: RE11/26/[address]: Dr. Riley Mandel MD : 1950 BED: DIS: 11/26/2024 SPEC #: [id number] RECD: 11/26/24 12:00 STATUS: ERLIN ROCAEL #: [id number] UMU: 11/26/24 07:[address]: Riley Mandel DEPT: SURGICAL PATHOLOGY RECD BY: Martín Werner ENTERED: 11/26/24 13:53 SP TYPE: THYROID OTHR DR: Dr. June Escobar MD Tissues: A - Thyroid gland, NOS Procedures: Surgery Specimen Level V HEADER OPERATION: Thyroid lobectomy with isthmus and IONM PRE-OP DIAGNOSIS: Multinodular goiter TISSUE SUBMITTED: A- Left thyroid lobe and isthmus *suture bolaños left superior* MICROSCOPIC DIAGNOSIS A. Left thyroid lobe and isthmus, left thyroid lobectomy with isthmectomy: * Benign colloid nodules * Two benign lymph nodes from the isthmus subserosa * One parathyroid gland from the inferior aspect of the lobe MICROSCOPIC DESCRIPTION Slides are reviewed. GROSS DESCRIPTION A. Received in formalin labeled with the patient's name and date of . Designated as L thyroid lobe + isthmus is a 24.3 g, lobulated hemithyroidectomy consisting of a 6.7 x 3.7 x 2.5 cm left lobe and 2.5 x 1.0 x 0.4 cm cauterized isthmus. There is a suture designating superior. The capsular surface has patchy shaggy areas and focal defects but, is predominantly intact. The specimen is inked as follows: Anterior: GreenPosterior: BlackIsthmus: Coffey The specimen is serially sectioned from superior to inferior revealing bowman-red to brown, nodular cut surfaces containing sticky colloid material throughout. The largest nodule spans the mid to inferior pole, has focal, central fibrosis and measures 3.4 x 2.8 x 1.6 cm. No encapsulated nodules are grossly appreciated. Manager Instrumentation sections are submitted as follows: A1-A2: Left lobe, superior poleA3-A4: Left lobe, mid poleA5: IsthmusA6-A7: Left lobe, inferior pole, with largest noduleA8: Left lobe, inferior pole [place] 11/26/2024 CPT:35530
[2024-11-26] MEDS: fentaNYL 100 MCG/2 ML Ampul IV (07:36)
[2024-11-26] MEDS: Lactated Ringers 2,000 ML 2000 ML IV (08:29)
--- NOTE | 2024-11-26 10:17 | PCM.OPRPT ---
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 Warehouse Representative: Ruth Crawford Tasks completed by coding assistant: Opening & closing and Retracting Type of Anesthesia: General/Supplemental RN Documented Start/Stop Times: Operation Date: 11/26/24 07:30 Case Time Into Pre-Op 11/26/24 05:56 Out of Pre-Op 11/26/24 07:21 Anesthesia Start 11/26/24 07:27 Into Room 11/26/24 07:27 Procedure Start 11/26/24 08:05 Procedure End 11/26/24 10:21 Anesthesia End 11/26/24 10:33 Out of Room 11/26/24 10:33 Into Recovery 11/26/24 10:35 Into Phase II Recovery 11/26/24 12:35 Out of Recovery 11/26/24 12:35 Out of Phase II 11/26/24 14:42 Procedure Start Time: 08:05 Procedure Stop Time: 10:21 Select all DRAINS/GRAFTS/IMPLANTS that apply: None Estimated Blood Loss: 10 Specimen collected: Yes Description of specimen(s) removed: Left thyroid lobe and isthmus (suture bolaños left superior pole) Description of surgery: After appropriate identification in the preoperative holding area, the patient was brought to the operating room where she was positioned supine on the operating room table. Induction of general endotracheal anesthetic was begun and a NIMS tube was placed under glidescope view to confirm coaptation with the vocal cords anteriorly. Tube was then secured and the patient was positioned with a shoulder roll so that her head was in extension but supported. The Nims electrodes were placed and connected to the monitor. We had appropriate resistance showing on the monitor and tapping at the level of the cricoid produce a graphical representation of the impulse on the monitor. Patient's neck was then prepped and draped in usual sterile fashion and a formal timeout was conducted from those present. The lowest skin fold to the sternal notch was selected for incision site (this resided approximately 1.5 fingerbreadths cephalad to the notch). An incision was extended for 2.5 cm on either side of midline. Electrocautery was used to deepen this incision through the level of the platysma. Subplatysmal flaps were raised with the use of electrocautery and blunt dissection. The strap muscles were then divided along the medial raphe bringing us down to the level of the thyroid. Capsular attachments to the thyroid were divided with the use of cautery or bluntly swept away with a peanut sponge. Retractors were placed providing visualization of the left superior pole of the thyroid. The vessels of the superior pole were sequentially ligated with the use of the LigaSure device. As we moved towards the thyroid gland away from the pole vessels, we were careful to identify the superior parathyroid gland and preserve its vascular pedicle. We then moved inferiorly and divided the middle thyroid vein as well as the inferior pole of the vessels with LigaSure. The inferior parathyroid gland was not grossly visualized, however, I sought to preserve and adherent thyroid thymic ligament intact to minimize the risk of devascularization to this structure. With the poles freed the thyroid was mobilized further medially by relieving the remaining attachments between the capsule and the muscle. I then employed blunt dissection parallel to the presumed course of the recurrent laryngeal nerve, exposed the tracheoesophageal groove. I worked to elevate both the superior and inferior pole out of the incision and as this was done, I was shortly thereafter able to visualize the recurrent laryngeal nerve. Applying the nerve monitor probe I appreciated a normal signal and amplitude from the nerve. The nerve positively identified, I relieved the attachments of the thyroid gland to the underlying trachea with the use of LigaSure taking care to avoid stretch on the nerve and proximity to avoid thermal injury. The nerve proved to course more anteriorly than normal and as we again approached the nerve insertion of the cricothyroid membrane, I elected to tie the remaining bridge of thyroid tissue using 4-0 silk ligatures?again checking the nerve function before dividing any tissue. I then elevated the thyroid anteriorly and with assured clearance from the nerve, the remaining thyroid tissue was removed from the anterior surface of the trachea using electrocautery to include the entirety of the thyroid isthmus. Superiorly I sought presence of a pyramidal lobe which did appear to be represented in a very small scale and was removed from the anterior surface of the thyroid cartilage with the use of electrocautery. Lastly, the specimen was divided at the junction between the isthmus and the left thyroid lobe with the LigaSure device. The specimen was oriented with a suture through the superior pole and then was passed off the field for permanent section with pathology. Pressure was applied to the surgical cavity and there was some slight oozing along the anterior surface of the trachea. Closer to the nerve there was some additional oozing and Surgicel hemostatic agent was placed while pressure was applied. Once this pressure was relieved, the surgical cavity was again inspected and we found hemostasis to be intact. We also confirmed the presence of both the superior parathyroid gland as well as a well-functioning recurrent laryngeal nerve. Satisfied with this result, the strap muscles were closed with a running 3-0 Vicryl stitch leaving a small gap at the inferior aspect of the suture line. The platysmal flaps were closed with interrupted 3-0 Vicryl. Some additional local anesthetic was infiltrated throughout the dermis. Then an additional step was made to optimize wound healing to insert 40 mg Kenalog with even aliquots of 0.1 mL instilled intradermally to reduce risk for keloiding. The skin was closed in a subcuticular fashion using 4-0 Monocryl. Steri-Strips were applied. Telfa and Tegaderm were used as a dressing. The patient was then awakened from anesthetic without event and was taken to PACU for ongoing recovery. Surgical Findings: ? Large left thyroid lobe with multiple adhesions to the sternothyroid muscle, but were easily disrupted with blunt dissection ? Soft appearance/texture of the thyroid lobe ? Visually and functionally intact left recurrent laryngeal nerve ? Grossly intact left superior parathyroid Complications Complications: No Admit VTE Documentation VTE Mechan Device Prophylaxis: SCD's
--- NOTE | 2024-11-26 10:22 | EX.PCM.DISCH ---
Discharge Instructions Diet Discharge Diet: Soft diet (Okay to advance to unrestricted once tolerating) Activity Discharge Activity: May Not Drive (While still difficult to turn head from side to side (impairing blindspot checking) OR if taking narcotic pain medications) May shower in (days): 2 Ice area for (Minutes): 20 Lifting Restrictions: No lifting greater than 15 pounds for 2 weeks after surgery Dressing / Incision Call your doctor if your incision/area has: Continuous Slow Oozing, Sudden Increased Bleeding, Increased Pain/ Swelling, Increased Redness and Swelling at the incision site Call your doctor if you observe: Fever of 101 or Higher, Numbness or Tingling (of fingertips or lips) and - (Difficulty swallowing) Remove Dressing in: 2 days (Remove outer dressing but leave steri strips in place until they fall off spontaneously) Cleanse incision/area with: Soap & Water (Avoid scrubbing/ submersing) Follow Up Care Please Follow Up With: Riley Mandel MD When: In 2 weeks for postop check Test Results: Test results from this visit will be discussed in further detail at your follow-up appointment, if applicable. Discharge Plan Admission Primary Reason for Your Visit: Thyroid lobectomy Attending Provider: Riley Mandel Primary Care Provider: June Escobar Instructions Additional Instructions / Restrictions: Please resume anticoagulation 48 hours postop Print Language: [place] Helen[place] Discharge Orders/Prescriptions Prescriptions: Continued Arnuity Ellipta 100 mcg/actuation blister with device 1 inh inhalation DAILY Qty: 90 3RF albuterol sulfate 90 mcg/actuation HFA aerosol inhaler 2 puff inhalation Q6H PRN (Reason: shortness of breath or wheezing) Qty: 8.5 1RF Rx Instructions: With spacer please Zyrtec 10 MG capsule 10 mg PO DAILY cholecalciferol (vitamin D3) [Vitamin D3] 25 mcg (1,000 unit) capsule 1,000 unit PO DAILY montelukast 10 mg tablet 10 mg PO QHS irbesartan 300 mg tablet 300 mg PO DAILY Qty: 90 3RF nifedipine 60 mg tablet extended release 24hr 60 mg PO DAILY Qty: 90 3RF Xarelto 10 mg tablet 10 mg PO DAILY Qty: 90 3RF Patient Comments: LAST DOSE PRE-OP 11/23/2024 spironolactone 25 mg tablet 25 mg PO DAILY Qty: 90 3RF Referrals / Follow Up: June Escobar MD [Primary Care Provider] - Disposition Disposition (needs filled in before D/C Order can be placed): Home, Self Care
--- NOTE | 2024-11-26 10:37 | SUR.PHASEI ---
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 PATIENT ENCOURAGED TO TAKE SLOW DEEP BREATHS. PATIENT HAVING INTERMITTENT COUGHING, NON PRODUCTIVE. NO PAIN. PATIENT PLACED ON O2 IMMEDIATELY FOR DESAT WHEN PATIENT WAS NOT TAKING DEEP BREATHS WHEN INITIAL ASSESSMENT AND BROUGHT OVER FROM COMMUNICATION EQUIPMENT REPAIRER.
--- NOTE | 2024-11-26 10:42 | PCM.POST.ANE ---
Anesthesia: Postop Eval I Current Vital Signs Temperature: 97.6 F Pulse Rate: 83 Blood Pressure: 120/74 Respiratory Rate: 16 Pulse Ox: 96 Oxygen Delivery Method: Nasal Cannula Oxygen Flow Rate (L/min): 4 Assessment Airway patent: Yes Spontaneous unlabored respirations: Yes Mental status: Awake nausea: No Vomiting: No Anesthesia Complication: No Fluid Hydration Crystalloid volume administer (ml): 1,700 Total IV fluid infused: 1,700 Progress Note Anesthesia document: Postop Eval 1 completed: Yes
== END 2024-11-26 14:43 | disposition home or self-care (01) ==
LOC: SDC 05:49 → AC 05:50
PROVIDERS: PCP Internal Medicine; Referring Provider Surgery; Visit Provider Surgery
PROC: (CPT 60220; principal; 2024-11-26 07:15)
DX: E04.2 Nontoxic multinodular goiter (principal); I10 Essential (primary) hypertension; J45.909 Unspecified asthma, uncomplicated; Z79.899 Other long term (current) drug therapy; Z79.01 Long term (current) use of anticoagulants; Z86.711 Personal history of pulmonary embolism
CPT/HCPCS: 60220; 00320; 88307; 93005; A4648; J2405

== ENCOUNTER → 2025-01-01 | Outpatient (CLI) | payer MEDICARE, OTHER, SELFPAY ==
[2025-01-01 11:48] LABS: Free T3 2.9 pg/mL (2.18-3.98)
== END | disposition home or self-care (01) ==
LOC: PAVLAB 10:59
PROVIDERS: PCP Internal Medicine; Referring Provider Surgery; Visit Provider Surgery
DX: E04.2 Nontoxic multinodular goiter (principal); Z90.09 Acquired absence of other part of head and neck
CPT/HCPCS: 36415; 84439; 84443; 84481